=== PATIENT | male | born 1985 | race Caucasian/White ===

== ENCOUNTER 2019-10-11 13:30 | Emergency (ER) | payer SELFPAY ==
[2019-10-11 13:41] VITALS: BMI 54.7
--- NOTE | 2019-10-11 13:42 | XR_ITS ---
WS: [id number] XR chest 1V portable [id number] REASON FOR EXAM: CP FINDINGS: Cardiomegaly is noted. The lung canas are well aerated. No pneumothorax, pneumonia, pleural effusion, or pulmonary edema. The hilum and apices are normal. No osseous abnormalities. XR/XR chest 1V portable [id number] IMPRESSION: Cardiomegaly
[2019-10-11 13:55] VITALS: BP 187/56; PULSE 81; RESP 18; TEMP 36.9; O2SAT 93
[2019-10-11 13:57] LABS: Basophils # 0.1 10^3/uL (0.0-0.1); Basophils % 0.4 %; Eosinophils # 0.3 10^3/uL (0.0-0.8); Eosinophils % 2.4 %; Hematocrit 52.6 % (42.0-52.0); Hemoglobin 16.2 g/dL (11.7-16.6); Lymphocytes # 2.4 10^3/uL (0.8-4.8); Lymphocytes % 21.4 %; Mean Corpuscular HGB Conc 30.8 g/dL (30.0-36.0); Mean Corpuscular Hemoglobin 29.3 pg (28.0-34.0); Mean Corpuscular Volume 95.3 fL (80-94); Mean Platelet Volume 10.5 fL (7.4-10.4); Monocytes # 0.7 10^3/uL (0.2-0.9); Monocytes % 6.2 %; Neutrophils # 7.8 10^3/uL (1.8-7.7); Neutrophils % 69.1 %; Nucleated Red Blood Cells % 0 %; Platelet Count 309 10^3/cmm (130-400); Red Blood Count 5.52 10^6/uL (4.1-5.3); Red Cell Distribution Width 14.1 % (12.1-15.1); White Blood Count 11.3 10^3/uL (4.0-10.0)
[2019-10-11 14:10] LABS: INR 0.92 (0.8-1.2)
[2019-10-11] MEDS: ondansetron 2 mg/ML SDV 2 mL 4 MG IVP (14:10)
[2019-10-11] MEDS: sodium chloride 0.9% 1,000 ML 100 ML IV (14:10)
--- NOTE | 2019-10-11 14:10 | W.ED.CHESTPA ---
Documented by User: Sarai Mota 10/11/19 15:21 HPI - Chest Pain General: Chief Complaint: Chest Pain Stated Complaint: cp Time Seen by Provider: 10/11/19 13:39 History of Present Illness: HPI narrative: Mr. Conrad is a nice 33-year-old male who comes in complaining of left-sided chest pain. He describes it as sharp in nature and up and began while he was doing mild labor. It is gradually subsided on its own. He denies any diaphoresis, nausea vomiting, shortness of breath or any other related complaints. He states he had similar symptoms 4 months ago but never sought medical attention. He is unaware of anything that made his symptoms better or worse. He denies a history of cardiac problems. He otherwise has no complaints. Associated symptoms: Deny abdominal pain, diaphoresis, dyspnea, fever(s), nausea, palpitations, syncope or vomiting Review of Systems General: Reports: other (negative unless marked) Const: Denies: fever, chills, body aches, fatigue, malaise or diaphoresis Eyes: Denies: change in vision or blurry vision ENMT: Denies: throat pain, painful swallowing, hoarseness, ear pain, ear discharge, Change in hearing or nasal discharge Card: Reports: chest pain; Denies: palpitations, irregular heart rhythm, syncope, pre-syncope, shortness of breath on exertion or shortness of breath when lying down Resp: Denies: shortness of breath, productive cough, non-productive cough, wheezing, coughing up blood or chest congestion GI: Denies: abdominal pain, nausea, vomiting, vomiting blood, coffee grounds in vomit, diarrhea, constipation, cramping, blood in stool or black tarry stool : Denies: flank pain, difficulty urinating, painful urination, urinary frequency, urinary urgency, decreased urine ouput, urinary incontinence or blood in urine Musc: Denies: neck pain, back pain, extremity pain, extremity swelling, joint pain, joint swelling, joint warmth or joint stiffness Skin/Breast: Denies: rash, skin tenderness or yellow skin Neuro: Denies: headache, numbness in extremities, weakness in extremities, changes in sensation, lack of coordination, difficulty walking, dizziness, vertigo or confusion Endo: Denies: excessive thirst, tired all the time, cold intolerance, excessive sweating, flushing or hot flashes James/Lymph: Denies: easy bruising, easy bleeding, petechiae or enlarged lymph nodes All/Imm: Denies: hives, throat swelling, tongue swelling, facial swelling or acute wheezing PFSH ED PFSH: Medical History (Updated 10/11/19 @ 15:13 by Sarai Mota) No pertinent past medical history Surgical History (Updated 10/11/19 @ 14:11 by Sarai Mota) No history of previous surgery Family History (Updated 10/11/19 @ 14:12 by Sarai Mota) Other Diabetes Stroke Social History Smoking and tobacco status: current every day smoker Physical Exam Const: COMMON NORMALS: no apparent distress, oriented x3, no limitations, healthy appearing and well nourished EXAM LIMITATIONS: no altered mental status GENERAL APPEARANCE: cooperative, well kempt and well developed ORIENTATION/CONSCIOUSNESS: Yes awake HENMT: COMMON NORMALS: normocephalic, head/scalp atraumatic, hearing grossly normal bilaterally, external ears normal, EAC's normal, external nose normal and moist oral mucous membranes HEAD & SCALP: normal to inspection, normocephalic and atraumatic FACE & SINUS: normal facial exam and face symmetric NOSE: external nose normal and nares normal EXTERNAL EAR: Yes external ears normal EXTERNAL AUDITORY CANAL: EAC's normal MOUTH: oral and palatal mucosa normal and tongue normal Eye: COMMON NORMALS: PERRL, EOMs intact bilaterally, conjunctivae normal and no scleral icterus GENERAL EYE: normal appearance of both eyes and normal light reflex CONJUNCTIVA: Yes conjunctivae normal SCLERA: sclerae normal CORNEA: Yes corneas normal PUPIL: Yes PERRL DIRECT OPHTHALMOSCOPY: Yes normal light reflex Neck/C-Spine: COMMON NORMALS: full ROM, no lymphadenopathy, supple, no meningeal signs and no JVD GENERAL: Yes normal visual inspection and Yes trachea midline CERVICAL SPINE: Yes cervical ROM normal Chest: COMMONS NORMALS: inspection of chest normal and palpation of chest normal Resp: COMMON NORMALS: normal respiratory effort, no retractions, no use of accessory muscles and clear to auscultation bilaterally EFFORT & INSPECTION: Yes able to speak in complete sentences AUSCULTATION: clear to auscultation bilaterally Cardio: COMMON NORMALS: no JVD, regular rate, regular rhythm, S1 normal heart sound, S2 normal heart sound, no gallops, no clicks, no murmurs and no rub JUGULAR VENOUS DISTENTION: no JVD RATE: regular rate RHYTHM: regular rhythm HEART SOUNDS: S1 normal and S2 normal GI: COMMON NORMALS: soft to palpation, non-tender, no hepatosplenomegaly and no masses INSPECTION: Yes normal to inspection PALPATION: Yes soft and Yes no hepatosplenomegaly : COMMON NORMALS: Yes no CVA tenderness BLADDER/KIDNEY EXAM: Yes no CVA tenderness Back/Pelvis: COMMON NORMALS: no CVA tenderness, thoracic and lumbar spine normal to inspection, no thoracic nor lumbar tenderness and thoraco-lumbar ROM normal Extremity: COMMON NORMALS: normal to inspection, full ROM, normal capillary refill, no joint enlargement, no clubbing, cyanosis or edema and no calf tenderness Neuro: COMMON NORMALS: oriented x3, CN's II-XII intact bilaterally, moves all extremities, no focal motor deficits and no sensory deficits noted MENINGEAL SIGNS: Yes no meningeal signs Psych: COMMON NORMALS: mental status grossly normal, thought process normal, cooperative, affect normal, speech normal and activity/motor behavior normal APPEARANCE: Yes well kempt SPEECH: Yes normal speech THOUGHT PROCESS: normal thought process Skin: COMMON NORMALS: no rashes or lesions noted, skin turgor normal, no jaundice, no petechiae and no mottling GENERAL SKIN EXAM: no rashes or lesions noted and turgor normal Course Vital Signs: Vital signs: Vital Signs Temperature 98.5 F 10/11/19 13:55 Pulse Rate 87 10/11/19 17:49 Respiratory Rate 17 10/11/19 17:49 Blood Pressure 128/81 10/11/19 17:49 Pulse Oximetry 98 10/11/19 17:49 MDM - Chest Pain MDM Narrative: Medical decision making narrative: 1600 -patient's care will be turned over to Dr. Mejia. Patient has a heart score of 1. I believe he would be best suited to follow-up as an outpatient for an outpatient stress test but due to his concern we will go ahead and check another troponin. Currently he is still chest pain-free. Lab Data: Attestation: I reviewed the patient's lab results. Labs: Lab Results 10/11/19 10/11/19 10/11/19 Range/Units 13:50 13:50 13:50 WBC 11.3 H (4.0-10.0) 10^3/ uL RBC 5.52 H (4.1-5.3) 10^6/u L Hgb 16.2 (11.7-16.6) g/dL Hct 52.6 H (42.0-52.0) % MCV 95.3 H (80-94) fL MCH 29.3 (28.0-34.0) pg MCHC 30.8 (30.0-36.0) g/dL RDW 14.1 (12.1-15.1) % Plt Count 309 (130-400) 10^3/c mm MPV 10.5 H (7.4-10.4) fL Neut % (Auto) 69.1 % Lymph % (Auto) 21.4 % [place] % (Auto) 6.2 % Eos % (Auto) 2.4 % Baso % (Auto) 0.4 % Neut # (Auto) 7.8 H (1.8-7.7) 10^3/u L Lymph # (Auto) 2.4 (0.8-4.8) 10^3/u L [place] # (Auto) 0.7 (0.2-0.9) 10^3/u L Eos # (Auto) 0.3 (0.0-0.8) 10^3/u L Baso # (Auto) 0.1 (0.0-0.1) 10^3/u L Nucleated RBC % (a uto) 0 % Nucleated RBCs # 0.0 /100WBC PT 12.60 (10.5-13.3) SECO NDS INR 0.92 (0.8-1.2) D-Dimer 0.39 (0-0.59) ug/mIFE U Sodium 139 (136-145) mmol/L Potassium 3.9 (3.5-5.1) mmol/L Chloride 101 (98-107) mmol/L Carbon Dioxide 29 (22-29) mmol/L Anion Gap 12.9 (5-19) BUN 11 (6-20) mg/dL Creatinine 0.6 L (0.7-1.2) mg/dL GFR Calculation 154.2 H (90-130) mL/min Glucose 125 H (65-115) mg/dL Calculated Osmolal ity 286 (285-295) mOsm/k g Calcium 9.8 (8.5-10.5) mg/dL Magnesium 2.0 (1.7-2.3) mg/dL Total Bilirubin 0.2 (0.15-1.2) mg/dL AST 16 (0-40) U/L ALT 29 (0-41) U/L Alkaline Phosphata se 100 (40-130) IU/L Troponin T Baselin e (0-15) ng/mL Troponin T 120 Min [place] (0-15) ng/mL Delta Troponin T (0-10) ABS# Total Protein 7.7 (6.6-8.7) g/dL Albumin 4.0 (3.5-5.2) g/dL Globulin 3.7 (1.3-4.6) g/dL Lipase 24 (13-60) U/L Urine Color (Yellow) Urine Appearance (CLEAR) Urine pH (5-7) Ur Specific Gravit y (1.005-1.030) Urine Protein (Negative) Urine Glucose (UA) (Normal) Urine Ketones (Negative) Urine Blood (Negative) Urine Nitrate (Negative) Urine Bilirubin (NEGATIVE) Urine Urobilinogen (Negative) mg/dL Ur Leukocyte Marisabel ase (Negative) Urine RBC (0-2) /hpf Urine WBC (0-5) /hpf Ur Squamous Epith Cells (0-5) Urine Bacteria (NONE) Urine Mucus Urine Opiates Scre en (Negative) ng/mL Ur Barbiturates Sc reen (Negative) ng/mL Ur Phencyclidine S crn (Negative) ng/mL Ur Amphetamines Sc reen (Negative) ng/mL U Benzodiazepines Scrn (Negative) ng/mL Urine Cocaine Scre en (Negative) ng/mL U Marijuana (THC) Screen (Negative) ng/mL 10/11/19 10/11/19 10/11/19 Range/Units 13:50 15:38 16:01 WBC (4.0-10.0) 10^3/ uL RBC (4.1-5.3) 10^6/u L Hgb (11.7-16.6) g/dL Hct (42.0-52.0) % MCV (80-94) fL MCH (28.0-34.0) pg MCHC (30.0-36.0) g/dL RDW (12.1-15.1) % Plt Count (130-400) 10^3/c mm MPV (7.4-10.4) fL Neut % (Auto) % Lymph % (Auto) % [place] % (Auto) % Eos % (Auto) % Baso % (Auto) % Neut # (Auto) (1.8-7.7) 10^3/u L Lymph # (Auto) (0.8-4.8) 10^3/u L [place] # (Auto) (0.2-0.9) 10^3/u L Eos # (Auto) (0.0-0.8) 10^3/u L Baso # (Auto) (0.0-0.1) 10^3/u L Nucleated RBC % (a uto) % Nucleated RBCs # /100WBC PT (10.5-13.3) SECO NDS INR (0.8-1.2) D-Dimer (0-0.59) ug/mIFE U Sodium (136-145) mmol/L Potassium (3.5-5.1) mmol/L Chloride (98-107) mmol/L Carbon Dioxide (22-29) mmol/L Anion Gap (5-19) BUN (6-20) mg/dL Creatinine (0.7-1.2) mg/dL GFR Calculation (90-130) mL/min Glucose (65-115) mg/dL Calculated Osmolal ity (285-295) mOsm/k g Calcium (8.5-10.5) mg/dL Magnesium (1.7-2.3) mg/dL Total Bilirubin (0.15-1.2) mg/dL AST (0-40) U/L ALT (0-41) U/L Alkaline Phosphata se (40-130) IU/L Troponin T Baselin e 6 (0-15) ng/mL Troponin T 120 [address] [place] 6.48 (0-15) ng/mL Delta Troponin T 0.48 (0-10) ABS# Total Protein (6.6-8.7) g/dL Albumin (3.5-5.2) g/dL Globulin (1.3-4.6) g/dL Lipase (13-60) U/L Urine Color Yellow (Yellow) Urine Appearance Clear (CLEAR) Urine pH 7 (5-7) Ur Specific Gravit y 1.015 (1.005-1.030) Urine Protein 2+ H (Negative) Urine Glucose (UA) Norm (Normal) Urine Ketones Negative (Negative) Urine Blood 2+ H (Negative) Urine Nitrate Negative (Negative) Urine Bilirubin Neg (NEGATIVE) Urine Urobilinogen 1 H (Negative) mg/dL Ur Leukocyte Marisabel ase Negative (Negative) Urine RBC 15-25 H (0-2) /hpf Urine WBC 0-4 H (0-5) /hpf Ur Squamous Epith Cells Rare (0-5) Urine Bacteria Trace (NONE) Urine Mucus Trace Urine Opiates Scre en (Negative) ng/mL Ur Barbiturates Sc reen (Negative) ng/mL Ur Phencyclidine S crn (Negative) ng/mL Ur Amphetamines Sc reen (Negative) ng/mL U Benzodiazepines Scrn (Negative) ng/mL Urine Cocaine Scre en (Negative) ng/mL U Marijuana (THC) Screen (Negative) ng/mL 10/11/19 Range/Units 16:01 WBC (4.0-10.0) 10^3/ uL RBC (4.1-5.3) 10^6/u L Hgb (11.7-16.6) g/dL Hct (42.0-52.0) % MCV (80-94) fL MCH (28.0-34.0) pg MCHC (30.0-36.0) g/dL RDW (12.1-15.1) % Plt Count (130-400) 10^3/c mm MPV (7.4-10.4) fL Neut % (Auto) % Lymph % (Auto) % [place] % (Auto) % Eos % (Auto) % Baso % (Auto) % Neut # (Auto) (1.8-7.7) 10^3/u L Lymph # (Auto) (0.8-4.8) 10^3/u L [place] # (Auto) (0.2-0.9) 10^3/u L Eos # (Auto) (0.0-0.8) 10^3/u L Baso # (Auto) (0.0-0.1) 10^3/u L Nucleated RBC % (a uto) % Nucleated RBCs # /100WBC PT (10.5-13.3) SECO NDS INR (0.8-1.2) D-Dimer (0-0.59) ug/mIFE U Sodium (136-145) mmol/L Potassium (3.5-5.1) mmol/L Chloride (98-107) mmol/L Carbon Dioxide (22-29) mmol/L Anion Gap (5-19) BUN (6-20) mg/dL Creatinine (0.7-1.2) mg/dL GFR Calculation (90-130) mL/min Glucose (65-115) mg/dL Calculated Osmolal ity (285-295) mOsm/k g Calcium (8.5-10.5) mg/dL Magnesium (1.7-2.3) mg/dL Total Bilirubin (0.15-1.2) mg/dL AST (0-40) U/L ALT (0-41) U/L Alkaline Phosphata se (40-130) IU/L Troponin T Baselin e (0-15) ng/mL Troponin T 120 Min [place] (0-15) ng/mL Delta Troponin T (0-10) ABS# Total Protein (6.6-8.7) g/dL Albumin (3.5-5.2) g/dL Globulin (1.3-4.6) g/dL Lipase (13-60) U/L Urine Color (Yellow) Urine Appearance (CLEAR) Urine pH (5-7) Ur Specific Gravit y (1.005-1.030) Urine Protein (Negative) Urine Glucose (UA) (Normal) Urine Ketones (Negative) Urine Blood (Negative) Urine Nitrate (Negative) Urine Bilirubin (NEGATIVE) Urine Urobilinogen (Negative) mg/dL Ur Leukocyte Marisabel ase (Negative) Urine RBC (0-2) /hpf Urine WBC (0-5) /hpf Ur Squamous Epith Cells (0-5) Urine Bacteria (NONE) Urine Mucus Urine Opiates Scre en Negative (Negative) ng/mL Ur Barbiturates Sc reen Negative (Negative) ng/mL Ur Phencyclidine S crn Negative (Negative) ng/mL Ur Amphetamines Sc reen Negative (Negative) ng/mL U Benzodiazepines Scrn Negative (Negative) ng/mL Urine Cocaine Scre en Negative (Negative) ng/mL U Marijuana (THC) Screen Positive H (Negative) ng/mL Imaging Data^: CXR: Radiologist's impression: Cardiomegaly otherwise no acute cardiopulmonary findings. EKG Data^: EKG 1: Attestation: I personally reviewed and interpreted this EKG as follows: EKG interpretation date: 10/11/19 EKG interpretation time: 13:56 Interpretation: Normal sinus rhythm at 72 beats a minute, normal axis, nonspecific ST and T wave changes. EKG 2: Attestation: I personally reviewed and interpreted this EKG as follows: EKG interpretation date: 10/11/19 EKG interpretation time: 15:25 Interpretation: Normal sinus rhythm at 71 beats a minute, nonspecific ST and T wave changes. Discharge Plan Discharge Patient Disposition: Home, Self-Care Clinical Impression: Chest pain Qualifiers: Chest pain type: unspecified Qualified Code(s): R07.9 - Chest pain, unspecified Condition: Stable Prescriptions: New albuterol sulfate 90 mcg/actuation HFA aerosol inhaler 2 inh INHALATION Q6H PRN (Reason: shortness of breath or wheezing) Qty: 8 RF: 0 Medrol (Theron) 4 mg tablets,dose pack See Rx Instructions .ROUTE .COMPLEX Qty: 21 RF: 0 No Action Aleve 220 mg Tablet 220 mg PO BID PRN (Reason: Pain) RF: 0 Discharge Orders: Discharge Order (Routine); Ordered 10/11/19 Ordered By: García Mejia Discharge Diet: Low Salt and Low Cholesterol Discharge Activity: Increase activity as tolerated Patient Instructions: Chest Pain (ED) Activity Restrictions/Additional Instructions: Return for worsening chest pain despite treatment, worsening shortness of breath, cough with sputum production, fever, other concerning symptoms. An outpatient stress test has been ordered for you. You should get a call from the [facility] to set this up. If you do not hear from them by Saturday afternoon, call [phone] and ask for the ER [facility] [employer]. Stand Alone Forms: Work/School Release Discharge Date/Time: 10/11/19 17:52 Coding Level of Care Code ED Medical Affairs Specialist for Chg Fwd Exam Comprehensive Documented by User: García Mejia DO 10/12/19 02:30 HPI - Chest Pain General: Chief Complaint: Chest Pain Stated Complaint: cp Time Seen by Provider: 10/11/19 13:39 PFSH ED PFSH: Medical History (Updated 10/11/19 @ 15:13 by Sarai Mota) No pertinent past medical history Surgical History (Updated 10/11/19 @ 14:11 by Sarai Mota) No history of previous surgery Family History (Updated 10/11/19 @ 14:12 by Sarai Mota) Other Diabetes Stroke Social History Smoking and tobacco status: current every day smoker Course Vital Signs: Vital signs: Vital Signs Temperature 98.5 F 10/11/19 13:55 Pulse Rate 87 10/11/19 17:49 Respiratory Rate 17 10/11/19 17:49 Blood Pressure 128/81 10/11/19 17:49 Pulse Oximetry 98 10/11/19 17:49 MDM - Chest Pain MDM Narrative: Medical decision making narrative: 33-year-old morbidly obese male presenting with chest discomfort. He is EKG showed a sinus rhythm without acute ST elevation or significant depression. His d-dimer was negative. He experienced an episode of hypoxia while here, and so CTA was performed. There is no pneumonia, no pulmonary embolism. There is some mosaicism in the lung tissue, which could be due to small airways disease. We will send him home with prescription for inhaler and a small taper of steroid. I think an outpatient stress test is a great idea. Lab Data: Labs: Lab Results 10/11/19 10/11/19 10/11/19 Range/Units 13:50 13:50 13:50 WBC 11.3 H (4.0-10.0) 10^3/ uL RBC 5.52 H (4.1-5.3) 10^6/u L Hgb 16.2 (11.7-16.6) g/dL Hct 52.6 H (42.0-52.0) % MCV 95.3 H (80-94) fL MCH 29.3 (28.0-34.0) pg MCHC 30.8 (30.0-36.0) g/dL RDW 14.1 (12.1-15.1) % Plt Count 309 (130-400) 10^3/c mm MPV 10.5 H (7.4-10.4) fL Neut % (Auto) 69.1 % Lymph % (Auto) 21.4 % [place] % (Auto) 6.2 % Eos % (Auto) 2.4 % Baso % (Auto) 0.4 % Neut # (Auto) 7.8 H (1.8-7.7) 10^3/u L Lymph # (Auto) 2.4 (0.8-4.8) 10^3/u L [place] # (Auto) 0.7 (0.2-0.9) 10^3/u L Eos # (Auto) 0.3 (0.0-0.8) 10^3/u L Baso # (Auto) 0.1 (0.0-0.1) 10^3/u L Nucleated RBC % (a uto) 0 % Nucleated RBCs # 0.0 /100WBC PT 12.60 (10.5-13.3) SECO NDS INR 0.92 (0.8-1.2) D-Dimer 0.39 (0-0.59) ug/mIFE U Sodium 139 (136-145) mmol/L Potassium 3.9 (3.5-5.1) mmol/L Chloride 101 (98-107) mmol/L Carbon Dioxide 29 (22-29) mmol/L Anion Gap 12.9 (5-19) BUN 11 (6-20) mg/dL Creatinine 0.6 L (0.7-1.2) mg/dL GFR Calculation 154.2 H (90-130) mL/min Glucose 125 H (65-115) mg/dL Calculated Osmolal ity 286 (285-295) mOsm/k g Calcium 9.8 (8.5-10.5) mg/dL Magnesium 2.0 (1.7-2.3) mg/dL Total Bilirubin 0.2 (0.15-1.2) mg/dL AST 16 (0-40) U/L ALT 29 (0-41) U/L Alkaline Phosphata se 100 (40-130) IU/L Troponin T Baselin e (0-15) ng/mL Troponin T 120 Min [place] (0-15) ng/mL Delta Troponin T (0-10) ABS# Total Protein 7.7 (6.6-8.7) g/dL Albumin 4.0 (3.5-5.2) g/dL Globulin 3.7 (1.3-4.6) g/dL Lipase 24 (13-60) U/L Urine Color (Yellow) Urine Appearance (CLEAR) Urine pH (5-7) Ur Specific Gravit y (1.005-1.030) Urine Protein (Negative) Urine Glucose (UA) (Normal) Urine Ketones (Negative) Urine Blood (Negative) Urine Nitrate (Negative) Urine Bilirubin (NEGATIVE) Urine Urobilinogen (Negative) mg/dL Ur Leukocyte Marisabel ase (Negative) Urine RBC (0-2) /hpf Urine WBC (0-5) /hpf Ur Squamous Epith Cells (0-5) Urine Bacteria (NONE) Urine Mucus Urine Opiates Scre en (Negative) ng/mL Ur Barbiturates Sc reen (Negative) ng/mL Ur Phencyclidine S crn (Negative) ng/mL Ur Amphetamines Sc reen (Negative) ng/mL U Benzodiazepines Scrn (Negative) ng/mL Urine Cocaine Scre en (Negative) ng/mL U Marijuana (THC) Screen (Negative) ng/mL 10/11/19 10/11/19 10/11/19 Range/Units 13:50 15:38 16:01 WBC (4.0-10.0) 10^3/ uL RBC (4.1-5.3) 10^6/u L Hgb (11.7-16.6) g/dL Hct (42.0-52.0) % MCV (80-94) fL MCH (28.0-34.0) pg MCHC (30.0-36.0) g/dL RDW (12.1-15.1) % Plt Count (130-400) 10^3/c mm MPV (7.4-10.4) fL Neut % (Auto) % Lymph % (Auto) % [place] % (Auto) % Eos % (Auto) % Baso % (Auto) % Neut # (Auto) (1.8-7.7) 10^3/u L Lymph # (Auto) (0.8-4.8) 10^3/u L [place] # (Auto) (0.2-0.9) 10^3/u L Eos # (Auto) (0.0-0.8) 10^3/u L Baso # (Auto) (0.0-0.1) 10^3/u L Nucleated RBC % (a uto) % Nucleated RBCs # /100WBC PT (10.5-13.3) SECO NDS INR (0.8-1.2) D-Dimer (0-0.59) ug/mIFE U Sodium (136-145) mmol/L Potassium (3.5-5.1) mmol/L Chloride (98-107) mmol/L Carbon Dioxide (22-29) mmol/L Anion Gap (5-19) BUN (6-20) mg/dL Creatinine (0.7-1.2) mg/dL GFR Calculation (90-130) mL/min Glucose (65-115) mg/dL Calculated Osmolal ity (285-295) mOsm/k g Calcium (8.5-10.5) mg/dL Magnesium (1.7-2.3) mg/dL Total Bilirubin (0.15-1.2) mg/dL AST (0-40) U/L ALT (0-41) U/L Alkaline Phosphata se (40-130) IU/L Troponin T Baselin e 6 (0-15) ng/mL Troponin T 120 Min [place] 6.48 (0-15) ng/mL Delta Troponin T 0.48 (0-10) ABS# Total Protein (6.6-8.7) g/dL Albumin (3.5-5.2) g/dL Globulin (1.3-4.6) g/dL Lipase (13-60) U/L Urine Color Yellow (Yellow) Urine Appearance Clear (CLEAR) Urine pH 7 (5-7) Ur Specific Gravit y 1.015 (1.005-1.030) Urine Protein 2+ H (Negative) Urine Glucose (UA) Norm (Normal) Urine Ketones Negative (Negative) Urine Blood 2+ H (Negative) Urine Nitrate Negative (Negative) Urine Bilirubin Neg (NEGATIVE) Urine Urobilinogen 1 H (Negative) mg/dL Ur Leukocyte Marisabel ase Negative (Negative) Urine RBC 15-25 H (0-2) /hpf Urine WBC 0-4 H (0-5) /hpf Ur Squamous Epith Cells Rare (0-5) Urine Bacteria Trace (NONE) Urine Mucus Trace Urine Opiates Scre en (Negative) ng/mL Ur Barbiturates Sc reen (Negative) ng/mL Ur Phencyclidine S crn (Negative) ng/mL Ur Amphetamines Sc reen (Negative) ng/mL U Benzodiazepines Scrn (Negative) ng/mL Urine Cocaine Scre en (Negative) ng/mL U Marijuana (THC) Screen (Negative) ng/mL 10/11/19 Range/Units 16:01 WBC (4.0-10.0) 10^3/ uL RBC (4.1-5.3) 10^6/u L Hgb (11.7-16.6) g/dL Hct (42.0-52.0) % MCV (80-94) fL MCH (28.0-34.0) pg MCHC (30.0-36.0) g/dL RDW (12.1-15.1) % Plt Count (130-400) 10^3/c mm MPV (7.4-10.4) fL Neut % (Auto) % Lymph % (Auto) % [place] % (Auto) % Eos % (Auto) % Baso % (Auto) % Neut # (Auto) (1.8-7.7) 10^3/u L Lymph # (Auto) (0.8-4.8) 10^3/u L [place] # (Auto) (0.2-0.9) 10^3/u L Eos # (Auto) (0.0-0.8) 10^3/u L Baso # (Auto) (0.0-0.1) 10^3/u L Nucleated RBC % (a uto) % Nucleated RBCs # /100WBC PT (10.5-13.3) SECO NDS INR (0.8-1.2) D-Dimer (0-0.59) ug/mIFE U Sodium (136-145) mmol/L Potassium (3.5-5.1) mmol/L Chloride (98-107) mmol/L Carbon Dioxide (22-29) mmol/L Anion Gap (5-19) BUN (6-20) mg/dL Creatinine (0.7-1.2) mg/dL GFR Calculation (90-130) mL/min Glucose (65-115) mg/dL Calculated Osmolal ity (285-295) mOsm/k g Calcium (8.5-10.5) mg/dL Magnesium (1.7-2.3) mg/dL Total Bilirubin (0.15-1.2) mg/dL AST (0-40) U/L ALT (0-41) U/L Alkaline Phosphata se (40-130) IU/L Troponin T Baselin e (0-15) ng/mL Troponin T 120 Min [place] (0-15) ng/mL Delta Troponin T (0-10) ABS# Total Protein (6.6-8.7) g/dL Albumin (3.5-5.2) g/dL Globulin (1.3-4.6) g/dL Lipase (13-60) U/L Urine Color (Yellow) Urine Appearance (CLEAR) Urine pH (5-7) Ur Specific Gravit y (1.005-1.030) Urine Protein (Negative) Urine Glucose (UA) (Normal) Urine Ketones (Negative) Urine Blood (Negative) Urine Nitrate (Negative) Urine Bilirubin (NEGATIVE) Urine Urobilinogen (Negative) mg/dL Ur Leukocyte Marisabel ase (Negative) Urine RBC (0-2) /hpf Urine WBC (0-5) /hpf Ur Squamous Epith Cells (0-5) Urine Bacteria (NONE) Urine Mucus Urine Opiates Scre en Negative (Negative) ng/mL Ur Barbiturates Sc reen Negative (Negative) ng/mL Ur Phencyclidine S crn Negative (Negative) ng/mL Ur Amphetamines Sc reen Negative (Negative) ng/mL U Benzodiazepines Scrn Negative (Negative) ng/mL Urine Cocaine Scre en Negative (Negative) ng/mL U Marijuana (THC) Screen Positive H (Negative) ng/mL Discharge Plan Discharge Patient Disposition: Home, Self-Care Clinical Impression: Chest pain Qualifiers: Chest pain type: unspecified Qualified Code(s): R07.9 - Chest pain, unspecified Condition: Stable Prescriptions: New albuterol sulfate 90 mcg/actuation HFA aerosol inhaler 2 inh INHALATION Q6H PRN (Reason: shortness of breath or wheezing) Qty: 8 RF: 0 Medrol (Theron) 4 mg tablets,dose pack See Rx Instructions .ROUTE .COMPLEX Qty: 21 RF: 0 No Action Aleve 220 mg Tablet 220 mg PO BID PRN (Reason: Pain) RF: 0 Discharge Orders: Discharge Order (Routine); Ordered 10/11/19 Ordered By: García Mejia Discharge Diet: Low Salt and Low Cholesterol Discharge Activity: Increase activity as tolerated Patient Instructions: Chest Pain (ED) Activity Restrictions/Additional Instructions: Return for worsening chest pain despite treatment, worsening shortness of breath, cough with sputum production, fever, other concerning symptoms. An outpatient stress test has been ordered for you. You should get a call from the ER [facility] to set this up. If you do not hear from them by Saturday afternoon, call [phone] and ask for the ER [facility] [employer]. Stand Alone Forms: Work/School Release Discharge Date/Time: 10/11/19 17:52 Coding Level of Care Code ED Medical Affairs Specialist for [place] Fwd Exam Comprehensive
[2019-10-11 14:13] LABS: D Dimer 0.39 ug/mIFEU (0-0.59)
[2019-10-11 14:15] LABS: Alanine Aminotransferase 29 U/L (0-41); Alkaline Phosphatase 100 IU/L (40-130); Anion Gap 12.9 (5-19); Aspartate Amino Transferase 16 U/L (0-40); Blood Urea Nitrogen 11 mg/dL (6-20); Calcium 9.8 mg/dL (8.5-10.5); Carbon Dioxide 29 mmol/L (22-29); Chloride 101 mmol/L (98-107); Globulin 3.7 g/dL (1.3-4.6); Glomerular Filtration Rate 154.2 mL/min (90-130); Glucose 125 mg/dL (65-115); Lipase 24 U/L (13-60); Osmolality Calculated 286 mOsm/kg (285-295); Potassium 3.9 mmol/L (3.5-5.1); Sodium 139 mmol/L (136-145); Total Bilirubin 0.2 mg/dL (0.15-1.2); Total Protein 7.7 g/dL (6.6-8.7)
[2019-10-11 14:17] LABS: Troponin(5th) Baseline 6 ng/mL (0-15)
--- NOTE | 2019-10-11 15:43 | ECG_ITS ---
Measurements Intervals [place] Rate: 71 P: 75 CT: 162 QRS: 57 QRSD: 98 T: 30 QT: 386 QTc: 422 SINUS RHYTHM No previous ECG available for comparison Electronically Signed On 10-11-2019 20:16:49 CDT by Tip Jose M.D. [id number]
--- NOTE | 2019-10-11 15:56 | CTR_ITS ---
PROCEDURE INFORMATION: Exam: CT Angiography Chest With Contrast Exam date and time: 10/11/2019 4:25 PM Age: 33 years old Clinical indication: Left-sided chest pain; Additional info: Cp/hypoxia TECHNIQUE: Imaging protocol: Computed tomographic angiography of the chest with intravenous contrast. 3D rendering: MIP and/or 3D reconstructed images were created by the technologist. Radiation optimization: All CT scans at this facility use at least one of these dose optimization techniques: automated exposure control; mA and/or kV adjustment per patient size (includes targeted exams where dose is matched to clinical indication); or iterative reconstruction. Contrast material: OMNI 350; Contrast volume: 95 ml; Contrast route: LT AC; COMPARISON: CR XR chest 1V portable [id number] 10/11/2019 2:04 PM RADIATION DOSE METRICS: Total DLP: 552.92 mGy-cm FINDINGS: Pulmonary arteries: Normal. No pulmonary emboli. Aorta: Unremarkable. No aortic aneurysm. No aortic dissection. Lungs: Mild mosaic attenuation throughout both lungs. Shallow inspiration with crowding. Pleural space: Unremarkable. No pneumothorax. No pleural effusion. Heart: Unremarkable. No cardiomegaly. No pericardial effusion. Lymph nodes: Unremarkable. No enlarged lymph nodes. Bones/joints: Unremarkable. No acute fracture. Soft tissues: Unremarkable. CT/CT angio chest PE protcl [id number] IMPRESSION: 1. Mild mosaic attenuation throughout both lungs most likely relates to areas of air trapping due to small airways disease. 2. No evidence for active pneumonia. Radiation Dose CTDIVOL = (mGy): DLP = 552.92 (mGy-cm)
[2019-10-11 16:03] LABS: Troponin 5 2HR 6.48 ng/mL (0-15); Troponin 5 2HR Delta 0.48 ABS# (0-10)
[2019-10-11 16:12] VITALS: BP 166/110; PULSE 73; RESP 16
[2019-10-11 16:34] LABS: Blood Urine 2+ (Negative); Glucose Urine UA Norm (Normal); Ketones Urine Negative (Negative); Protein Urine 2+ (Negative); Specific Gravity, Urine 1.015 (1.005-1.030); Urine Appearance Clear (CLEAR); Urine Color Yellow (Yellow); pH Urine 7 (5-7)
[2019-10-11 16:35] LABS: Bilirubin Urine Neg (NEGATIVE); Leukocyte Esterase Urine Negative (Negative); Nitrate Urine Negative (Negative); Urobilinogen Urine 1 mg/dL (Negative)
[2019-10-11 16:43] LABS: Amphetamines Screen Urine Negative (Negative); Barbiturates Screen Urine Negative (Negative); Benzodiazepines Screen Urine Negative (Negative); Cocaine Screen Urine Negative (Negative); Opiate Screen Urine Negative (Negative); PCP Screen Urine Negative (Negative); THC Screen Urine Positive (Negative)
[2019-10-11] MEDS: iohexol 350 mg/mL 100 mL Btl IV (16:44)
[2019-10-11 16:48] LABS: RBC Urine 15-25 /hpf (0-2); WBC Urine 0-4 /hpf (0-5)
[2019-10-11 16:49] LABS: Add Urine Culture? Yes; Bacteria Urine TRACE; Mucus Urine TRACE; Squamous Epithelial Cell Urine RARE (0-5)
--- NOTE | 2019-10-11 16:58 | PC.NURSE ---
patient returned from ct, tolerated well
[2019-10-11 17:49] VITALS: BP 128/81; PULSE 87; RESP 17; O2SAT 98
--- NOTE | 2019-10-11 19:43 | ECG_ITS ---
Measurements Intervals [place] Rate: 72 P: 72 GA: 163 QRS: 61 QRSD: 89 T: 39 QT: 371 QTc: 406 SINUS RHYTHM POSSIBLE RIGHT VENTRICULAR CONDUCTION DELAY [RSR (QR) IN V1/V2] No previous ECG available for comparison Electronically Signed On 10-11-2019 20:16:21 CDT by Tip Jose M.D. [id number]
--- NOTE | 2019-10-13 10:25 | DCPLANNER ---
manager environmental affairs had message to schedule an outpatient stress test for patient. manager environmental affairs called patient to confirm that patient did want to have test ordered, and to confirm who patient sees for primary care. Patient stated that he does not have insurance at this time, that he does not want to have the stress test ordered. manager environmental affairs offered to mail patient both of the senior financial accountant applications to the patient to fill out and turn back in. Patient stated that he wanted to wait to hear back to see where he is at with the senior financial accountant before scheduling any type of appointment.
== END 2019-10-11 17:52 | disposition home or self-care (01) ==
PROVIDERS: Emergency Medicine; Emergency Provider Emergency Medicine
DX: R07.9 Chest pain, unspecified (principal); F17.210 Nicotine dependence, cigarettes, uncomplicated
CPT/HCPCS: 12345; 36415; 71045; 71275; 80053; 80306; 81001; 83690; 83735; 84484; 85025; 85378; 85610; 87086; 93005; 96361; 96374; 96375; 99284; J2405; J7030; Q9967

== ENCOUNTER 2021-01-05 12:52 | Inpatient (IN) | payer MEDICAID, SELFPAY ==
[2021-01-05] VITALS (10 sets, daily range): BP systolic 153–190; BP diastolic 80–108; PULSE 78–98; RESP 18–22; TEMP 36.6–37.1; O2SAT 88–96; BMI 60.8
[2021-01-05 14:58] LABS: Basophils # 0.1 10^3/uL (0.0-0.1); Basophils % 0.7 %; Eosinophils # 0.6 10^3/uL (0.0-0.8); Eosinophils % 3.8 %; Hematocrit 53.6 % (42.0-52.0); Hemoglobin 16.1 g/dL (11.7-16.6); Lymphocytes # 2.1 10^3/uL (0.8-4.8); Lymphocytes % 13.4 %; Mean Corpuscular Hemoglobin 28.5 pg (28.0-34.0); Mean Corpuscular Volume 94.9 fL (80-94); Mean Platelet Volume 10.7 fL (7.4-10.4); Monocytes % 6.6 %; Neutrophils % 74.5 %; Nucleated Red Blood Cells % 0 %; Platelet Count 337 10^3/cmm (130-400); Red Blood Count 5.65 10^6/uL (4.1-5.3); Red Cell Distribution Width 15.5 % (12.1-15.1); White Blood Count 15.7 10^3/uL (4.0-10.0)
--- NOTE | 2021-01-05 15:13 | XRR_ITS ---
PROCEDURE INFORMATION: Exam: XR Chest Exam date and time: 01/05/2021 3:13 PM Age: 35 years old Clinical indication: Other: Swelling; Additional info: Rule out pathologies TECHNIQUE: Imaging protocol: XR of the chest. Views: 1 view. COMPARISON: CR XR chest 1V portable [id number] 10/11/2019 2:04 PM FINDINGS: Lungs: Unremarkable. No consolidation. Pleural spaces: Unremarkable. No pleural effusion. No pneumothorax. Heart/Mediastinum: Unremarkable. No cardiomegaly. Bones/joints: Unremarkable. XR/XR chest 1V portable [id number] IMPRESSION: No acute findings.
--- NOTE | 2021-01-05 15:13 | ECG_ITS ---
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 Measurements Intervals [place] Rate: 84 P: 65 AR: 168 QRS: 86 QRSD: 88 T: 33 QT: 385 QTc: 455 Interpretive Statements SINUS RHYTHM POSSIBLE RIGHT VENTRICULAR CONDUCTION DELAY [RSR (QR) IN V1/V2] Compared to ECG 10/11/2019 15:25:08 No significant changes Electronically Signed On 01-05-2021 23:02:38 CDT by Elie Horn M.D. [id number]
--- NOTE | 2021-01-05 15:22 | PC.NURSE ---
Patient to room 10 at 1435, assumed care at this time.
[2021-01-05 15:29] LABS: Alanine Aminotransferase 23 U/L (0-41); Albumin Level 3.5 g/dL (3.5-5.2); Alkaline Phosphatase 89 IU/L (40-130); Anion Gap 13.3 (5-19); Aspartate Amino Transferase 18 U/L (0-40); Blood Urea Nitrogen 10 mg/dL (6-20); Calcium 8.4 mg/dL (8.5-10.5); Carbon Dioxide 31 mmol/L (22-29); Chloride 99 mmol/L (98-107); Globulin 3.4 g/dL (1.3-4.6); Glomerular Filtration Rate 127.6 mL/min (90-130); Glucose 85 mg/dL (65-115); Lipase 24 U/L (13-60); Osmolality Calculated 286 mOsm/kg (285-295); Potassium 4.3 mmol/L (3.5-5.1); Sodium 139 mmol/L (136-145); Total Bilirubin 0.3 mg/dL (0.15-1.2); Total Protein 6.9 g/dL (6.6-8.7)
[2021-01-05 15:57] LABS: NT Pro B Type Natriuretic Pept 588 pg/mL (0-125)
--- NOTE | 2021-01-05 15:59 | ED_ITS ---
HPI - General Adult General: Chief complaint: General Medical Stated complaint: SENT BY PCP/BODY SWELLING, ABD LABS (HAS COPIES) Time Seen by Provider: 01/05/21 14:42 History of Present Illness: HPI narrative: Patient is a 35-year-old male with history of morbid obesity who presents emergency room for concerns of worsening lower extremity swelling, shortness of breath, abdominal distention over the last 2-month. Patient was seen and evaluated by his primary care provider recently and has noted to have increased weight gain of over 40 pounds. Patient currently weighs 460 pounds. He requires home oxygen. Patient says that he normally uses 6 L of home oxygen at home. Denies any chest pain, nausea/vomiting, abdominal complaints loss of taste, cough runny nose sore throat, diarrhea, or blood in the stool. Onset: chronic Duration: ongoing Intensity: moderate Associated symptoms: SOB, abdominal distension, and leg swelling Review of Systems Narrative: Constitutional: no subjective fever, no generalized weakness HEENT: No vision changes CV: No chest pain, no palpitations PULM: no cough, no dyspnea. GI: No abdominal pain, no N/V/D. +abdominal distension : No dysuria MSKEL: No muscle pain SKIN: +leg swelling, +redness over the legs and abdomen NEURO: No headache, no focal weakness. HEME: No visible bruises PSYCH: Normal mood [facility] PFSH: Medical History (Updated 01/05/21 @ 20:18 by Brett Capone MD) No pertinent past medical history Surgical History (Updated 10/11/19 @ 14:11 by Sarai Mota) No history of previous surgery Family History (Updated 10/11/19 @ 14:12 by Sarai Mota) Other Diabetes Stroke Social History (Updated 01/05/21 @ 20:14 by Brett Capone MD) Smoking and tobacco status: current every day smoker cigarettes Packs smoked per day: 1 Years cigarettes smoked: 12 [ Other cigarette details: 12 pack smoking history ] Alcohol intake: never Substance/Drug Use: never Housing: House Physical Exam Narrative: EXAM NARRATIVE: Head: Atraumatic Eyes: PERRL, conjunctiva without injection ENT: Mucous membrane moist NECK: Supple without lymphadenopathy LUNGS: LCAB, no crackles/rhonchi or rales CV: RRR ABDOMEN: Soft, +abdominal distension nontender in all quadrants, no guarding or rebound tenderness EXTREMITY: 3+ LE swelling, no michael sign or asymmetric swelling SKIN: No rash or erythema NEURO: Awake and alert. No focal motor deficits. PSYCH: Normal mood and affect. Course Vital Signs: Vital signs: Vital Signs Temperature 98.5 F 01/05/21 17:18 Pulse Rate 87 01/05/21 22:00 Respiratory Rate 18 01/05/21 22:00 Blood Pressure 162/84 01/05/21 22:00 Pulse Oximetry 94 01/05/21 22:00 MDM - General Adult MDM Narrative: Medical decision making narrative: Patient is a 35-year-old male with history of morbid obesity presenting to emergency room with concerns of increased weight gain, [place] distention and progressive worsening O2 requirement. In triage, patient was satting 85% on room air. Patient is placed on 3 L nasal cannula and improve to 95% on pulse ox. Findings most consistent with volume overload leading to dyspnea. Patient received 40mg of IV lasix. Unclear source of leukocytosis given clear XR chest. 3+ protein is noted in the urine concerning for possible protein wasting. Patient will be admitted for volume adjustment, failure of outpatient treatment, increased oxygen requirement. Disposition: Admission Lab Data: Labs: Lab Results 01/05/21 01/05/21 01/05/21 Range/Units 14:51 14:51 14:51 WBC 15.7 H (4.0-10.0) 10^3/ uL RBC 5.65 H (4.1-5.3) 10^6/u L Hgb 16.1 (11.7-16.6) g/dL Hct 53.6 H (42.0-52.0) % MCV 94.9 H (80-94) fL MCH 28.5 (28.0-34.0) pg MCHC 30.0 (30.0-36.0) g/dL RDW 15.5 H (12.1-15.1) % Plt Count 337 (130-400) 10^3/c mm MPV 10.7 H (7.4-10.4) fL Neut % (Auto) 74.5 % Lymph % (Auto) 13.4 % [place] % (Auto) 6.6 % Eos % (Auto) 3.8 % Baso % (Auto) 0.7 % Neut # (Auto) 11.70 H (1.8-7.7) 10^3/u L Lymph # (Auto) 2.1 (0.8-4.8) 10^3/u L [place] # (Auto) 1.0 H (0.2-0.9) 10^3/u L Eos # (Auto) 0.6 (0.0-0.8) 10^3/u L Baso # (Auto) 0.1 (0.0-0.1) 10^3/u L Nucleated RBC % (a uto) 0 % Nucleated RBCs # 0.0 /100WBC D-Dimer (0-0.59) ug/mIFE U Sodium 139 (136-145) mmol/L Potassium 4.3 (3.5-5.1) mmol/L Chloride 99 (98-107) mmol/L Carbon Dioxide 31 H (22-29) mmol/L Anion Gap 13.3 (5-19) BUN 10 (6-20) mg/dL Creatinine 0.7 (0.7-1.2) mg/dL GFR Calculation 127.6 (90-130) mL/min Glucose 85 (65-115) mg/dL Estimat Average Gl ucose Hemoglobin A1c (4.0-6.0) % Calculated Osmolal ity 286 (285-295) mOsm/k g Calcium 8.4 L (8.5-10.5) mg/dL Total Bilirubin 0.3 (0.15-1.2) mg/dL AST 18 (0-40) U/L ALT 23 (0-41) U/L Alkaline Phosphata se 89 (40-130) IU/L NT-Pro-B Natriuret Pep 588 H (0-125) pg/mL Total Protein 6.9 (6.6-8.7) g/dL Albumin 3.5 (3.5-5.2) g/dL Globulin 3.4 (1.3-4.6) g/dL Triglycerides (0-150) mg/dL Cholesterol (0-200) mg/dL LDL Cholesterol, C alc (50-129) mg/dL HDL Cholesterol (60-100) mg/dL LDL/HDL Ratio (0.00-3.22) RATI O Cholesterol/HDL Ra farshad (1.0-5.00) mg/dL Lipase 24 (13-60) U/L TSH Urine Color (Yellow) Urine Appearance (CLEAR) Urine pH (5-7) Ur Specific Gravit y (1.005-1.030) Urine Protein (Negative) Urine Glucose (UA) (Normal) Urine Ketones (Negative) Urine Blood (Negative) Urine Nitrate (Negative) Urine Bilirubin (Negative) Urine Urobilinogen (Negative) mg/dL Ur Leukocyte Marisabel ase (Negative) Urine RBC (0-2) /hpf Urine WBC (0-5) /hpf Ur Squamous Epith Cells (0-5) /hpf Amorphous Sediment Urine Bacteria (NONE) /hpf Ur Random Microalb umin (0-20) ug/dL Urine Creatinine Microalb/Creat Rat io (0-20) mg/dL Urine Total Protei n (0.0-20.0) mg/dL SARS-CoV-2 Ag (Rap id) (Negative) 01/05/21 01/05/21 01/05/21 Range/Units 14:51 14:51 14:51 WBC (4.0-10.0) 10^3/ uL RBC (4.1-5.3) 10^6/u L Hgb (11.7-16.6) g/dL Hct (42.0-52.0) % MCV (80-94) fL MCH (28.0-34.0) pg MCHC (30.0-36.0) g/dL RDW (12.1-15.1) % Plt Count (130-400) 10^3/c mm MPV (7.4-10.4) fL Neut % (Auto) % Lymph % (Auto) % [place] % (Auto) % Eos % (Auto) % Baso % (Auto) % Neut # (Auto) (1.8-7.7) 10^3/u L Lymph # (Auto) (0.8-4.8) 10^3/u L [place] # (Auto) (0.2-0.9) 10^3/u L Eos # (Auto) (0.0-0.8) 10^3/u L Baso # (Auto) (0.0-0.1) 10^3/u L Nucleated RBC % (a uto) % Nucleated RBCs # /100WBC D-Dimer 1.28 H (0-0.59) ug/mIFE U Sodium (136-145) mmol/L Potassium (3.5-5.1) mmol/L Chloride (98-107) mmol/L Carbon Dioxide (22-29) mmol/L Anion Gap (5-19) BUN (6-20) mg/dL Creatinine (0.7-1.2) mg/dL GFR Calculation (90-130) mL/min Glucose (65-115) mg/dL Estimat Average Gl ucose 137 Hemoglobin A1c 6.4 H (4.0-6.0) % Calculated Osmolal ity (285-295) mOsm/k g Calcium (8.5-10.5) mg/dL Total Bilirubin (0.15-1.2) mg/dL AST (0-40) U/L ALT (0-41) U/L Alkaline Phosphata se (40-130) IU/L NT-Pro-B Natriuret Pep (0-125) pg/mL Total Protein (6.6-8.7) g/dL Albumin (3.5-5.2) g/dL Globulin (1.3-4.6) g/dL Triglycerides (0-150) mg/dL Cholesterol (0-200) mg/dL LDL Cholesterol, C alc (50-129) mg/dL HDL Cholesterol (60-100) mg/dL LDL/HDL Ratio (0.00-3.22) RATI O Cholesterol/HDL Ra farshad (1.0-5.00) mg/dL Lipase (13-60) U/L TSH Cancelled Urine Color (Yellow) Urine Appearance (CLEAR) Urine pH (5-7) Ur Specific Gravit y (1.005-1.030) Urine Protein (Negative) Urine Glucose (UA) (Normal) Urine Ketones (Negative) Urine Blood (Negative) Urine Nitrate (Negative) Urine Bilirubin (Negative) Urine Urobilinogen (Negative) mg/dL Ur Leukocyte Marisabel ase (Negative) Urine RBC (0-2) /hpf Urine WBC (0-5) /hpf Ur Squamous Epith Cells (0-5) /hpf Amorphous Sediment Urine Bacteria (NONE) /hpf Ur Random Microalb umin (0-20) ug/dL Urine Creatinine Microalb/Creat Rat io (0-20) mg/dL Urine Total Protei n (0.0-20.0) mg/dL SARS-CoV-2 Ag (Rap id) (Negative) 01/05/21 01/05/21 01/05/21 Range/Units 14:51 15:16 15:50 WBC (4.0-10.0) 10^3/ uL RBC (4.1-5.3) 10^6/u L Hgb (11.7-16.6) g/dL Hct (42.0-52.0) % MCV (80-94) fL MCH (28.0-34.0) pg MCHC (30.0-36.0) g/dL RDW (12.1-15.1) % Plt Count (130-400) 10^3/c mm MPV (7.4-10.4) fL Neut % (Auto) % Lymph % (Auto) % [place] % (Auto) % Eos % (Auto) % Baso % (Auto) % Neut # (Auto) (1.8-7.7) 10^3/u L Lymph # (Auto) (0.8-4.8) 10^3/u L [place] # (Auto) (0.2-0.9) 10^3/u L Eos # (Auto) (0.0-0.8) 10^3/u L Baso # (Auto) (0.0-0.1) 10^3/u L Nucleated RBC % (a uto) % Nucleated RBCs # /100WBC D-Dimer (0-0.59) ug/mIFE U Sodium (136-145) mmol/L Potassium (3.5-5.1) mmol/L Chloride (98-107) mmol/L Carbon Dioxide (22-29) mmol/L Anion Gap (5-19) BUN (6-20) mg/dL Creatinine (0.7-1.2) mg/dL GFR Calculation (90-130) mL/min Glucose (65-115) mg/dL Estimat Average Gl ucose Hemoglobin A1c (4.0-6.0) % Calculated Osmolal ity (285-295) mOsm/k g Calcium (8.5-10.5) mg/dL Total Bilirubin (0.15-1.2) mg/dL AST (0-40) U/L ALT (0-41) U/L Alkaline Phosphata se (40-130) IU/L NT-Pro-B Natriuret Pep (0-125) pg/mL Total Protein (6.6-8.7) g/dL Albumin (3.5-5.2) g/dL Globulin (1.3-4.6) g/dL Triglycerides 110 (0-150) mg/dL Cholesterol 168 (0-200) mg/dL LDL Cholesterol, C alc 107 (50-129) mg/dL HDL Cholesterol 39 L (60-100) mg/dL LDL/HDL Ratio 2.74 (0.00-3.22) RATI O Cholesterol/HDL Ra farshad 4.31 (1.0-5.00) mg/dL Lipase (13-60) U/L TSH 2.34 Urine Color Yellow (Yellow) Urine Appearance Clear (CLEAR) Urine pH 7 (5-7) Ur Specific Gravit y 1.010 (1.005-1.030) Urine Protein 3+ H (Negative) Urine Glucose (UA) Norm (Normal) Urine Ketones Negative (Negative) Urine Blood Neg (Negative) Urine Nitrate Negative (Negative) Urine Bilirubin Neg (Negative) Urine Urobilinogen Norm (Negative) mg/dL Ur Leukocyte Marisabel ase Negative (Negative) Urine RBC 0-4 H (0-2) /hpf Urine WBC 0-4 H (0-5) /hpf Ur Squamous Epith Cells None (0-5) /hpf Amorphous Sediment Not Reportable Urine Bacteria None (NONE) /hpf Ur Random Microalb umin (0-20) ug/dL Urine Creatinine Microalb/Creat Rat io (0-20) mg/dL Urine Total Protei n (0.0-20.0) mg/dL SARS-CoV-2 Ag (Rap id) Negative (Negative) 01/05/21 01/05/21 Range/Units 15:50 15:55 WBC (4.0-10.0) 10^3/ uL RBC (4.1-5.3) 10^6/u L Hgb (11.7-16.6) g/dL Hct (42.0-52.0) % MCV (80-94) fL MCH (28.0-34.0) pg MCHC (30.0-36.0) g/dL RDW (12.1-15.1) % Plt Count (130-400) 10^3/c mm MPV (7.4-10.4) fL Neut % (Auto) % Lymph % (Auto) % [place] % (Auto) % Eos % (Auto) % Baso % (Auto) % Neut # (Auto) (1.8-7.7) 10^3/u L Lymph # (Auto) (0.8-4.8) 10^3/u L [place] # (Auto) (0.2-0.9) 10^3/u L Eos # (Auto) (0.0-0.8) 10^3/u L Baso # (Auto) (0.0-0.1) 10^3/u L Nucleated RBC % (a uto) % Nucleated RBCs # /100WBC D-Dimer (0-0.59) ug/mIFE U Sodium (136-145) mmol/L Potassium (3.5-5.1) mmol/L Chloride (98-107) mmol/L Carbon Dioxide (22-29) mmol/L Anion Gap (5-19) BUN (6-20) mg/dL Creatinine (0.7-1.2) mg/dL GFR Calculation (90-130) mL/min Glucose (65-115) mg/dL Estimat Average Gl ucose Hemoglobin A1c (4.0-6.0) % Calculated Osmolal ity (285-295) mOsm/k g Calcium (8.5-10.5) mg/dL Total Bilirubin (0.15-1.2) mg/dL AST (0-40) U/L ALT (0-41) U/L Alkaline Phosphata se (40-130) IU/L NT-Pro-B Natriuret Pep (0-125) pg/mL Total Protein (6.6-8.7) g/dL Albumin (3.5-5.2) g/dL Globulin (1.3-4.6) g/dL Triglycerides (0-150) mg/dL Cholesterol (0-200) mg/dL LDL Cholesterol, C alc (50-129) mg/dL HDL Cholesterol (60-100) mg/dL LDL/HDL Ratio (0.00-3.22) RATI O Cholesterol/HDL Ra farshad (1.0-5.00) mg/dL Lipase (13-60) U/L TSH Urine Color (Yellow) Urine Appearance (CLEAR) Urine pH (5-7) Ur Specific Gravit y (1.005-1.030) Urine Protein (Negative) Urine Glucose (UA) (Normal) Urine Ketones (Negative) Urine Blood (Negative) Urine Nitrate (Negative) Urine Bilirubin (Negative) Urine Urobilinogen (Negative) mg/dL Ur Leukocyte Marisabel ase (Negative) Urine RBC (0-2) /hpf Urine WBC (0-5) /hpf Ur Squamous Epith Cells (0-5) /hpf Amorphous Sediment Urine Bacteria (NONE) /hpf Ur Random Microalb umin 46 H (0-20) ug/dL Urine Creatinine Cancelled 69 Microalb/Creat Rat io 667 H (0-20) mg/dL Urine Total Protei n 69.0 H (0.0-20.0) mg/dL SARS-CoV-2 Ag (Rap id) (Negative) Imaging Data^: Other Imaging: Radiologist's impression: [address] [id number] ReportSigned Patient: Sheila Conrad #: [id number]: 1985Acct#:[id number]/Sex: 35 / MADM Date: 01/05/21Loc: ERRoom/Bed:Attending Dr: Ordering Provider/Ordering MD: Lauren Thompson MD Date of Service: 01/05/21 Procedure(s): XR chest 1V portable [id number] Accession Number(s): [id number] Report Number: [id number] PROCEDURE INFORMATION: Exam: XR Chest Exam date and time: 01/05/2021 3:13 PM Age: 35 years old Clinical indication: Other: Swelling; Additional info: Rule out pathologies TECHNIQUE: Imaging protocol: XR of the chest. Views: 1 view. COMPARISON: CR XR chest 1V portable [id number] 10/11/2019 2:04 PM FINDINGS: Lungs: Unremarkable. No consolidation. Pleural spaces: Unremarkable. No pleural effusion. No pneumothorax. Heart/Mediastinum: Unremarkable. No cardiomegaly. Bones/joints: Unremarkable. XR/XR chest 1V portable [id number] IMPRESSION: No acute findings. Dictated By:David Martinez By:David Martinez Date/Time:01/05/21 1614DD/ 1612 Discharge Plan Discharge Patient Disposition: Admitted As Inpatient Admit Provider: Brett Capone Clinical Impression: CHF exacerbation Condition: Stable Coding Level of Care Code ED [employer] Team Leader for Billie Quach
--- NOTE | 2021-01-05 16:08 | PC.NURSE ---
PATIENT WAS ON ROOM AIR, O2 FALLS TO 88% HE IS PLACED ON 2L/NC AND SPO2 INCREASES TO 95%. NOTIFED
[2021-01-05 16:22] LABS: SARS Covid-2 Antigen Negative (Negative)
[2021-01-05 16:37] LABS: Bilirubin Urine Neg (Negative); Blood Urine Neg (Negative); Glucose Urine UA Norm (Normal); Ketones Urine Negative (Negative); Leukocyte Esterase Urine Negative (Negative); Nitrate Urine Negative (Negative); Protein Urine 3+ (Negative); Urine Appearance Clear (CLEAR); Urine Color Yellow (Yellow); Urobilinogen Urine Norm (Negative); pH Urine 7 (5-7)
[2021-01-05 16:38] LABS: RBC Urine 0-4 /hpf (0-2); WBC Urine 0-4 /hpf (0-5)
[2021-01-05 16:39] LABS: Add Urine Culture? No
[2021-01-05] MEDS: FUROsemide 10 mg/mL SDV 10mL 80 MG IVP (19:45)
--- NOTE | 2021-01-05 19:48 | PM.HP ---
Providers/Chief Complaint Primary Care Provider: AIRAM Wilson Chief Complaint: SENT BY PCP/BODY SWELLING, ABD LABS (HAS COPIES) History of Present Illness Cj Conrad is a 35 year old male no significant past medical history presented today with chief complaint of orthopnea, PND and weight gain. Patient is stating that he does not follow-up with PCP on regular basis. He was given antibiotics for possible cellulitis of lower extremities about 3 weeks ago. He is not sure about the name of the medication. He is not endorsing fever, nausea, vomiting or diarrhea. He is not vaccinated for COVID-19. For last 1 to 2 months he has been noticing orthopnea, PND, shortness of breath on exertion, weight gain, excessive snoring at night, endorsing grogginess in the morning with lack of energy. No previous history of SD, CHF, diabetes. In the ER he was requiring 2 L nasal cannula oxygen, he was on CPAP by the time I saw him, transitioned to with nasal cannula during my interview clinically looks fluid overloaded diagnostic work-up revealed leukocytosis, review of previous records revealed he has persistent leukocytosis, high BNP chest x-ray unremarkable clinically looks fluid overloaded he was given 40 mg IV Lasix proteinuria noted I requested urine creatinine, protein ratio started him on lisinopril, requested nocturnal pulse ox D-dimer on stat basis Review of Systems Const: Reports: change in appetite, change in weight and fatigue; Denies: fever(s), chills or body aches Eyes: Denies: change in vision ENMT: Denies: throat pain Card: Reports: edema, swelling of feet/ankles, dyspnea on exertion and orthopnea; Denies: chest pain or syncope Resp: Reports: dyspnea GI: Reports: early satiety and bloating; Denies: abdominal pain : Denies: flank pain Musc: Reports: extremity swelling Skin/Breast: Reports: lesions, dry skin and striae Neuro: Denies: headache(s) Psych: Denies: anxiety Endo: Denies: polyuria James/Lymph: Denies: easy bruising All/Imm: Denies: urticaria Medications/Allergies Home Medications Medication Instructions Recorded Confirmed Last Taken Type albuterol sulfate 2 inh INHALATION Q6H PRN #8 gm 10/11/19 01/05/21 Unknown Rx furosemide [Lasix] 40 mg PO BID 01/05/21 01/05/21 01/04/21 History mupirocin 1 applic TOPICAL BID 01/05/21 01/05/21 01/04/21 History potassium chloride 40 meq PO DAILY 01/05/21 01/05/21 01/04/21 History Allergies Allergy/AdvReac Type Severity Reaction Status Date / Time No Known Allergies Allergy Verified 01/05/21 14:27 PFSH Acute PFSH: Medical History (Updated 01/05/21 @ 20:18 by Brett Capone MD) No pertinent past medical history Surgical History (Updated 10/11/19 @ 14:11 by Sarai Mota) No history of previous surgery Family History (Updated 10/11/19 @ 14:12 by Sarai Mota) Other Diabetes Stroke Social History (Updated 01/05/21 @ 20:14 by Brett Capone MD) Smoking and tobacco status: current every day smoker cigarettes Packs smoked per day: 1 Years cigarettes smoked: 12 [ Other cigarette details: 12 pack smoking history ] Alcohol intake: never Substance/Drug Use: never Housing: House Vitals/I&O/Wt Last Vital Signs Temp 98.5 F 01/05/21 17:18 Pulse 78 01/05/21 19:19 Resp 20 H 01/05/21 19:19 BP 176/108 01/05/21 19:19 Pulse Ox 96 01/05/21 19:19 Weight last 48 hrs Weight 209.106 kg Weight 209.106 kg Physical Exam Narrative: EXAM NARRATIVE: Young male who was on CPAP at the time my evaluation was transitioned to trach cannula saturating well 9700% no active chest pain clinical signs of fluid overload bilateral lower extremity edema with mild hyperemia venous stasis dermatitis no active sign of cellulitis EOMI, PERRLA no neurological deficit appropriate mood and affect S1, S2 sinus rhythm no murmur appreciated bilateral breath sounds diminished distended bloated abdomen no signs of peritonitis Data : 01/05/21 14:51 01/05/21 14:51 Micro: Microbiology 01/05/21 18:57 Blood Culture - Preliminary Blood SPECIMEN COLLECTED A&P Assessment and plan (1) CHF exacerbation: Status: Acute (2) Proteinuria: Status: Acute (3) Morbid obesity: Status: Acute (4) Hypertension: Status: Acute (5) Acute respiratory failure with hypoxia: Status: Acute Additional A&P Information New onset CHF will request hemoglobin A1c, TSH to rule out metabolic X syndrome clinical signs of fluid overload, active smoker most likely cause obstructive sleep apnea and morbid obesity with underlying untreated hypertension no signs of ACS request echo in the morning and start him on Bumex overnight pulse oximetry, he will need outpatient sleep study right-sided heart failure presentation chest x-ray unremarkable Essential hypertension, will add hydrochlorothiazide and lisinopril considering his stage III hypertension most likely cause of sleep apnea Proteinuria requested urine creatinine/albumin ratio, added lisinopril, follow-up with A1c will need outpatient close monitoring morbid obesity: Weight loss regimen, DASH diet, exercise, sleep apnea treatment, optimization of his medications and lifestyle Acute hypoxia secondary to CHF exacerbation and underlying obesity hypoventilation/sleep apnea I have transitioned him down to 2 L nasal cannula saturating 97 to 100% chest x-ray unremarkable full code cardiac diet DVT prophylaxis 30 mg of Lovenox twice a day because of high BMI Attestations Medical Necessity Statement*: Anticipating discharge within 48 hours, overnight monitoring needed because of oxygen requirement due to CHF Time Spent in Patient Care: 16 - 35 minutes Coding Level of Care Code Acute Hospice Administrator for Sabasg Fwd Diagnoses CHF exacerbation I50.9 Proteinuria R80.9 Morbid obesity E66.01 Hypertension I10 Acute respiratory failure with hypoxia J96.01
[2021-01-05 20:19] LABS: D Dimer 1.28 ug/mIFEU (0-0.59)
--- NOTE | 2021-01-05 20:20 | CTR_ITS ---
PROCEDURE INFORMATION: Exam: CTA Chest With Contrast Exam date and time: 01/05/2021 8:20 PM Age: 35 years old Clinical indication: Shortness of breath; Additional info: Hypoxia new onset TECHNIQUE: Imaging protocol: Computed tomographic angiography of the chest with contrast. 3D rendering (Not supervised by radiologist): MIP and/or 3D reconstructed images were created by the technologist. Radiation optimization: All CT scans at this facility use at least one of these dose optimization techniques: automated exposure control; mA and/or kV adjustment per patient size (includes targeted exams where dose is matched to clinical indication); or iterative reconstruction. Contrast material: OMNI 350; Contrast volume: 95 ml; Contrast route: INTRAVENOUS (IV); COMPARISON: CT angio chest PE protcl [id number] 10/11/2019 4:43 PM RADIATION DOSE METRICS: Total DLP (mGy-cm): 1003.13 FINDINGS: Pulmonary arteries: Normal. No pulmonary emboli. Aorta: Unremarkable. No aortic aneurysm. No aortic dissection. Other arteries: There is a separate origin for the left vertebral artery. Veins: There is some reflux of contrast material into the inferior vena cava and hepatic veins, findings that can be related to right heart failure. Lungs: Subtle ground-glass opacities are present within the hemithoraces bilaterally possibly representing atelectasis and pneumonitis although mild pulmonary edema could have this appearance. Pleural spaces: Unremarkable. No pneumothorax. No pleural effusion. Heart: Unremarkable. No cardiomegaly. No pericardial effusion. Lymph nodes: Unremarkable. No enlarged lymph nodes. Bones/joints: Unremarkable. No acute fracture. Soft tissues: Unremarkable. CT/CT angio chest PE protcl [id number] IMPRESSION: 1. There is no evidence for pulmonary emboli. 2. Reflux of contrast into the inferior vena cava and hepatic veins and subtle haziness seen within the hemithoraces bilaterally could represent mild pulmonary edema and right heart failure. However, superimposed atelectasis or pneumonitis cannot be excluded. Radiation Dose CTDIVOL = (mGy): DLP = 1003.13 (mGy-cm)
[2021-01-05 20:46] LABS: Creatinine Urine, Random 69 mg/dL (39-259)
[2021-01-05 20:59] LABS: Microalbum Creatinine Ratio Ur 667 mg/dL (0-20); Microalbumin Random Urine 46 ug/dL (0-20)
[2021-01-05 21:03] LABS: Estmated Average Glucose 137; Hemoglobin A1C 6.4 % (4.0-6.0)
[2021-01-05 21:12] LABS: Chol HDL Ratio 4.31 mg/dL (1.0-5.00); Cholesterol 168 mg/dL (0-200); HDL Cholesterol 39 mg/dL (60-100); LDL Cholesterol Calculated 107 mg/dL (50-129); LDL HDL Ratio 2.74 RATIO (0.00-3.22); Thyroid Stimulating Hormone 2.34 uIU/mL (0.27-4.20); Triglycerides 110 mg/dL (0-150)
[2021-01-05] MEDS: iohexol 350 mg/mL 100 mL Btl IV (21:19)
[2021-01-05 22:16] LABS: Blood Gas Operator Identificat CAK; Blood Gas Sample Type Venous
[2021-01-05] MEDS: enoxaparin 30 mg/0.3 mL Syringe SUBCUT (22:41)
[2021-01-05] MEDS: hydroCHLOROthiazide 25 mg Tablet PO (22:42)
[2021-01-06] VITALS (8 sets, daily range): BP systolic 141–174; BP diastolic 70–90; PULSE 71–88; RESP 14–20; TEMP 36.7–36.9; O2SAT 90–95
[2021-01-06 04:13] LABS: Basophils # 0.1 10^3/uL (0.0-0.1); Basophils % 0.7 %; Eosinophils # 0.6 10^3/uL (0.0-0.8); Eosinophils % 4.5 %; Hematocrit 53.3 % (42.0-52.0); Hemoglobin 15.2 g/dL (11.7-16.6); Lymphocytes % 14.6 %; Mean Corpuscular HGB Conc 28.5 g/dL (30.0-36.0); Mean Corpuscular Hemoglobin 27.5 pg (28.0-34.0); Mean Corpuscular Volume 96.4 fL (80-94); Mean Platelet Volume 10.9 fL (7.4-10.4); Neutrophils # 9.76 10^3/uL (1.8-7.7); Neutrophils % 72.2 %; Nucleated Red Blood Cells % 0 %; Platelet Count 314 10^3/cmm (130-400); Red Blood Count 5.53 10^6/uL (4.1-5.3); Red Cell Distribution Width 15.5 % (12.1-15.1); White Blood Count 13.5 10^3/uL (4.0-10.0)
[2021-01-06 04:29] LABS: Anion Gap 10.7 (5-19); Blood Urea Nitrogen 10 mg/dL (6-20); Calcium 8.2 mg/dL (8.5-10.5); Carbon Dioxide 31 mmol/L (22-29); Chloride 98 mmol/L (98-107); Glomerular Filtration Rate 152.4 mL/min (90-130); Glucose 101 mg/dL (65-115); Osmolality Calculated 281 mOsm/kg (285-295); Potassium 3.7 mmol/L (3.5-5.1); Sodium 136 mmol/L (136-145)
[2021-01-06] MEDS: perflutren protein-a microsphr 0.22 mg/mL SDV 3 mL IV (07:22)
[2021-01-06] MEDS: bumetanide 1 mg Tablet PO (10:04)
[2021-01-06] MEDS: hydroCHLOROthiazide 25 mg Tablet PO (10:05)
[2021-01-06] MEDS: potassium chloride ER 20 mEq Tablet 40 MEQ PO (10:05)
[2021-01-06] MEDS: lisinopril 10 mg Tablet PO (10:05)
[2021-01-06] MEDS: enoxaparin 30 mg/0.3 mL Syringe SUBCUT ×2 (10:06→21:22)
--- NOTE | 2021-01-06 11:54 | PC.CHAP ---
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 visit [] Patient/Family/Request visit [] Outpatient visit [] Follow-up visit [] Physician referral [] Code/Alert [] Routine visit [] Staff referral [] Actively dying [] Patient sleeping [] Family support [] [] Out of room [] Palliative care [] [] Receiving care in room [] Pre-surgical visit [] Trauma [] Long length of stay [] ICU visit [xx] Other: ISOLATION Relational/Emotional Strength [] Patient feels connected with others/family/visitors/staff [] Distress [] Loneliness/isolation [] Abandonment Spirituality of Patient [] Person of Mary Lou [] Attends Taoism of their Mary Lou [] Believes in Prayer [] Reads Bible or Oriental Orthodox materials [] There are Spiritual issues to be addressed Supervisor Matrix Interventions [] Prayer [] Active listening [] Non-anxious presence [] Spiritual/emotional support [] Crisis/trauma care [] Spiritual counseling [] Bereavement support [] Provided bereavement packet [] Provided Bible/devotional materials [] Provided toy/stuffed animal, coloring book to patient or family member [] Provided Communion [] Anointing/Donald [] Salvation [] Completed spiritual assessment [] Other: Impact on Illness or Injury [] Angry [] Fearful [] Anxious [] Often cries [] Exhaustion [] Unable to work [] Unable to attend holiness [] Unable to walk/stand [] Unable to read [] Unable to drive [] Unable to eat/drink [] Unable to sleep [] Unable to be with family [] Patient intubated [] Other: Summary Time spent with patient
--- NOTE | 2021-01-06 14:14 | PM.PN ---
Subjective Subjective: Interval history: Patient was seen and examined this morning, patient is complaining of worsening bilateral lower extremity swelling, PND, significant weight gain in recent couple of months. overnight he was kept on, BiPAP. Vitals/I&O/Wt Last Vital Signs Temp 98.4 F 01/06/21 04:10 Pulse 88 01/06/21 12:00 Resp 18 01/06/21 12:00 BP 141/90 01/06/21 12:00 Pulse Ox 95 01/06/21 12:00 Weight last 48 hrs Weight 209.106 kg Weight 209.106 kg Physical Exam Const: COMMON NORMALS: patient oriented x3 HENMT: COMMON NORMALS: normocephalic and atraumatic HEAD & SCALP: normocephalic and atraumatic Resp: OTHER: Diminished air entry bilaterally Cardio: COMMON NORMALS: regular rate, regular rhythm, S1 normal heart sound present, S2 normal heart sound present, No gallops present (Cardio), No murmurs present (Cardio), No rub (Cardio) and Peripheral pulses 2+ throughout RATE: regular rate RHYTHM: regular rhythm HEART SOUNDS: S1 normal heart sound present and S2 normal heart sound present PERIPHERAL PULSES: Peripheral pulses 2+ throughout GI: COMMON NORMALS: Normal to inspection, nondistended, normoactive bowel sounds present, Soft to palpation, non-tender, No hepatosplenomegaly present and no masses AUSCULTATION: Yes normoactive bowel sounds PALPATION: Yes Soft to palpation and Yes No hepatosplenomegaly present RECTAL EXAM: Yes deferred Extremity: NARRATIVE EXTREMITY EXAM: Bilateral lower extremity 2 + pitting edema Neuro: COMMON NORMALS: patient oriented x3 Data : 01/06/21 03:38 01/06/21 03:38 Micro: Microbiology 01/05/21 15:05 Blood Culture - Preliminary Blood SPECIMEN COLLECTED 01/05/21 18:57 Blood Culture - Preliminary Blood SPECIMEN COLLECTED A&P Assessment and plan (1) CHF exacerbation: Status: Acute (2) Proteinuria: Status: Acute (3) Morbid obesity: Status: Acute (4) Acute respiratory failure with hypoxia: Status: Acute (5) Hypertension: Status: Acute (6) Obesity hypoventilation syndrome: Status: Acute (7) Obstructive sleep apnea: Status: Acute Additional A&P Information New onset CHF will request hemoglobin A1c, TSH to rule out metabolic X syndrome clinical signs of fluid overload, active smoker most likely cause obstructive sleep apnea and morbid obesity with underlying untreated hypertension no signs of ACS request echo in the morning and start him on Bumex overnight pulse oximetry, he will need outpatient sleep study right-sided heart failure presentation chest x-ray unremarkable Essential hypertension, will add hydrochlorothiazide and lisinopril considering his stage III hypertension most likely cause of sleep apnea Proteinuria requested urine creatinine/albumin ratio, added lisinopril, follow-up with A1c will need outpatient close monitoring morbid obesity: Weight loss regimen, DASH diet, exercise, sleep apnea treatment, optimization of his medications and lifestyle Acute hypoxia secondary to CHF exacerbation and underlying obesity hypoventilation/sleep apnea I have transitioned him down to 2 L nasal cannula saturating 97 to 100% chest x-ray unremarkable full code cardiac diet DVT prophylaxis 30 mg of Lovenox twice a day because of high BMI Attestations Medical Necessity Statement*: Patient is to be in hospital for management of decompensated heart failure. Coding Level of Care Code Acute Editor Dictionary for Billie Diazd Diagnoses CHF exacerbation I50.9 Proteinuria R80.9 Morbid obesity E66.01 Acute respiratory failure with hypoxia J96.01 Hypertension I10 Obesity hypoventilation syndrome E66.2 Obstructive sleep apnea G47.33
[2021-01-06 14:50] LABS: Coronavirus Test Green County Not Detected
--- NOTE | 2021-01-06 15:37 | PC.NURSE ---
Pt transferred to room 264 med-surg. Pt tolerated well. Pt had no c/o pain or discomfort at the time of transfer.
[2021-01-06 18:14] LABS: pH VBG 7.36 (7.32-7.42)
[2021-01-06 18:15] LABS: Base Excess VBG 8.6 mmol/L (-3.0-3.0); PCO2 VBG 65.2 mmHg (41-51)
--- NOTE | 2021-01-06 21:40 | USCV_ITS ---
Cj Conrad Age: 35 Gender: M : 1985 Exam Date: 01/06/2021 06:33 Ordering Phys: Brett Capone MD Technologist: Snow Griffin Exam Location: [facility] – [place] Indication: SOB CHF BP: 168 / 83 HR: 84 Rhythm: Sinus Technical Quality: Adequate MEASUREMENTS (Male / Female) Normal Values 2D ECHO LV Diastolic Diameter PLAX 6.0 cm 4.2 - 5.9 / 3.9 - 5.3 cm LV Systolic Diameter PLAX 3.9 cm LV Chamber Size 3.3 cm IVS Diastolic Thickness 1.3 cm 0.6 - 1.0 / 0.6 - 0.9 cm IVS Systolic Thickness 2.3 cm LVPW Diastolic Thickness 1.7 cm 0.6 - 1.0 / 0.6 - 0.9 cm LVPW Systolic Thickness 1.8 cm RV Chamber Size 3.3 cm LVOT Diameter 2.1 cm LV Ejection Fraction 2D Teich 62.8 % LV Ejection Fraction MOD 2C 51.3 % LV Ejection Fraction 2C AL 50.1 % LA Diameter 4.2 cm LA Width 3.6 cm LA Height 4.9 cm RA Width 3.6 cm RA Height 4.6 cm Aorta at Sinotubular Diameter 2.9 cm M-MODE LV Diastolic Diameter MM 4.3 cm 4.2 - 5.9 / 3.9 - 5.3 cm LV Systolic Diameter MM 2.1 cm LV Ejection Fraction MM Teich 83.1 % IVS Diastolic Thickness MM 1.3 cm 0.6 - 1.0 / 0.6 - 0.9 cm IVS Systolic Thickness MM 2.3 cm LVPW Diastolic Thickness MM 1.3 cm 0.6 - 1.0 / 0.6 - 0.9 cm LVPW Systolic Thickness MM 1.5 cm Aortic Annulus Diameter 3.9 cm LA Ao Ratio MM 1.0 MV E Point Septal Separation 0.5 cm DOPPLER AV Peak Velocity 156.0 cm/s LVOT Peak Velocity 128.0 cm/s AV Area Cont Eq vti 2.8 cm squared AV Area Cont Eq pk 2.8 cm squared MV Area PHT 4.4 cm squared Mitral E to A Ratio 1.4 MV E' Velocity 54.0 cm/s Mitral E to MV E' Ratio 6.7 Mitral E to LV E' Lateral Ratio 5.4 Mitral E to LV E' Septal Ratio 8.7 TR Peak Velocity 203.6 cm/s TR Peak Gradient 16.6 mmHg TR Mean Velocity 154.5 cm/s TR Mean Gradient 10.9 mmHg TR Velocity Time Integral 62.7 cm TV Peak E Velocity 82.0 cm/s PV Peak Velocity 75.0 cm/s RV Acceleration Time 0.2 s RV Ejection Time 0.5 s RV AcT/ET 0.5 FINDINGS Left Ventricle Normal left ventricular size. LV systolic function is normal with EF of 60-65%. No regional wall motion abnormalities. Right Ventricle Not well visualized Right Atrium The right atrium is normal in size. Left Atrium The left atrium is normal in size. Mitral Valve Grossly normal without significant stenosis or prolapse. There is no mitral regurgitation. Aortic Valve Grossly normal without significant sclerosis or stenosis. There is no aortic regurgitation. Tricuspid Valve Not well visualized. Insufficient TR jet to calculate RVSP Pulmonic Valve Not visualized Pericardium Normal pericardium without effusion. Aorta Normal ascending aorta dimension. CONCLUSIONS Technically very difficult study secondary to poor ultrasonic windows. LV systolic function is normal with EF of 60-65%. Valvular structures are not well-visualized however no gross abnormalities. No comparison studies are available. Elie Horn MD (Electronically Signed) Final Date: 07 January 2021 12:05 S
[2021-01-07] VITALS (8 sets, daily range): BP systolic 115–161; BP diastolic 71–76; PULSE 70–96; RESP 16–20; TEMP 36.4–36.9; O2SAT 86–99
[2021-01-07 06:27] LABS: Basophils # 0.1 10^3/uL (0.0-0.1); Basophils % 0.5 %; Eosinophils # 0.6 10^3/uL (0.0-0.8); Eosinophils % 4.1 %; Hemoglobin 16.1 g/dL (11.7-16.6); Lymphocytes # 1.7 10^3/uL (0.8-4.8); Lymphocytes % 12.7 %; Mean Corpuscular HGB Conc 29.3 g/dL (30.0-36.0); Mean Corpuscular Hemoglobin 27.8 pg (28.0-34.0); Mean Platelet Volume 11.1 fL (7.4-10.4); Monocytes # 0.8 10^3/uL (0.2-0.9); Neutrophils # 10.32 10^3/uL (1.8-7.7); Neutrophils % 75.7 %; Nucleated Red Blood Cells % 0 %; Platelet Count 321 10^3/cmm (130-400); Red Blood Count 5.79 10^6/uL (4.1-5.3); Red Cell Distribution Width 15.1 % (12.1-15.1); White Blood Count 13.6 10^3/uL (4.0-10.0)
[2021-01-07 07:02] LABS: Anion Gap 10.3 (5-19); Blood Urea Nitrogen 8 mg/dL (6-20); Calcium 8.5 mg/dL (8.5-10.5); Carbon Dioxide 35 mmol/L (22-29); Chloride 95 mmol/L (98-107); Glomerular Filtration Rate 188.1 mL/min (90-130); Glucose 101 mg/dL (65-115); Magnesium 1.9 mg/dL (1.7-2.3); Osmolality Calculated 280 mOsm/kg (285-295); Potassium 4.3 mmol/L (3.5-5.1); Sodium 136 mmol/L (136-145)
[2021-01-07] MEDS: enoxaparin 30 mg/0.3 mL Syringe SUBCUT ×2 (08:34→21:14)
[2021-01-07] MEDS: potassium chloride ER 20 mEq Tablet 40 MEQ PO (08:34)
[2021-01-07] MEDS: lisinopril 10 mg Tablet PO (08:34)
[2021-01-07] MEDS: hydroCHLOROthiazide 25 mg Tablet PO (08:34)
[2021-01-07] MEDS: bumetanide 1 mg Tablet PO (08:34)
--- NOTE | 2021-01-07 15:57 | PM.PN ---
Subjective Subjective: Interval history: Patient was seen and examined this morning,currently he is felling better today. SOB has improved, b/l l/e swelling is going down. Medications: Reviewed: Yes Vitals/I&O/Wt Last Vital Signs Temp 98.1 F 01/07/21 12:00 Pulse 85 01/07/21 14:34 Resp 18 01/07/21 14:34 BP 118/71 01/07/21 12:00 Pulse Ox 87 L 01/07/21 14:34 01/07/21 01/07/21 01/07/21 06:59 14:59 22:59 Intake Total 240 / 480 240 / 240 Output Total 1350 / 1350 Balance 240 / 480 -1110 / -1110 Physical Exam Const: COMMON NORMALS: patient oriented x3 HENMT: COMMON NORMALS: normocephalic and atraumatic HEAD & SCALP: normocephalic and atraumatic Resp: OTHER: Diminished air entry bilaterally Cardio: COMMON NORMALS: regular rate, regular rhythm, S1 normal heart sound present, S2 normal heart sound present, No gallops present (Cardio), No murmurs present (Cardio), No rub (Cardio) and Peripheral pulses 2+ throughout RATE: regular rate RHYTHM: regular rhythm HEART SOUNDS: S1 normal heart sound present and S2 normal heart sound present PERIPHERAL PULSES: Peripheral pulses 2+ throughout GI: COMMON NORMALS: Normal to inspection, nondistended, normoactive bowel sounds present, Soft to palpation, non-tender, No hepatosplenomegaly present and no masses AUSCULTATION: Yes normoactive bowel sounds PALPATION: Yes Soft to palpation and Yes No hepatosplenomegaly present RECTAL EXAM: Yes deferred Extremity: NARRATIVE EXTREMITY EXAM: Bilateral lower extremity 2 + pitting edema Neuro: COMMON NORMALS: patient oriented x3 Data : 01/07/21 05:42 01/07/21 05:42 Micro: Microbiology 01/05/21 15:05 Blood Culture - Preliminary Blood NEGATIVE TO DATE 01/05/21 18:57 Blood Culture - Preliminary Blood NEGATIVE TO DATE A&P Assessment and plan (1) CHF exacerbation: Status: Acute (2) Proteinuria: Status: Acute (3) Morbid obesity: Status: Acute (4) Acute respiratory failure with hypoxia: Status: Acute (5) Hypertension: Status: Acute (6) Obesity hypoventilation syndrome: Status: Acute (7) Obstructive sleep apnea: Status: Acute Additional A&P Information New onset CHF will request hemoglobin A1c, TSH to rule out metabolic X syndrome clinical signs of fluid overload, active smoker most likely cause obstructive sleep apnea and morbid obesity with underlying untreated hypertension no signs of ACS request echo in the morning and start him on Bumex overnight pulse oximetry, he will need outpatient sleep study right-sided heart failure presentation chest x-ray unremarkable Essential hypertension, will add hydrochlorothiazide and lisinopril considering his stage III hypertension most likely cause of sleep apnea Proteinuria requested urine creatinine/albumin ratio, added lisinopril, follow-up with A1c will need outpatient close monitoring morbid obesity: Weight loss regimen, DASH diet, exercise, sleep apnea treatment, optimization of his medications and lifestyle Acute hypoxia secondary to CHF exacerbation and underlying obesity hypoventilation/sleep apnea I have transitioned him down to 2 L nasal cannula saturating 97 to 100% chest x-ray unremarkable full code cardiac diet DVT prophylaxis 30 mg of Lovenox twice a day because of high BMI Attestations Medical Necessity Statement*: Patient needs to be in hospital for the managment of heart failure and the need for I,V Diuresis. Coding Level of Care Code Acute Medical Director Of Hospice for Chg Fwd Diagnoses CHF exacerbation I50.9 Proteinuria R80.9 Morbid obesity E66.01 Acute respiratory failure with hypoxia J96.01 Hypertension I10 Obesity hypoventilation syndrome E66.2 Obstructive sleep apnea G47.33
[2021-01-08] VITALS: BP 146/82; PULSE 85; RESP 16; TEMP 37; O2SAT 90
[2021-01-08 04:00] VITALS: BP 141/75; PULSE 86; RESP 18; TEMP 36.8; O2SAT 93
[2021-01-08 05:03] LABS: Basophils # 0.1 10^3/uL (0.0-0.1); Basophils % 0.5 %; Eosinophils # 0.7 10^3/uL (0.0-0.8); Eosinophils % 5.2 %; Hematocrit 54.3 % (42.0-52.0); Hemoglobin 16.2 g/dL (11.7-16.6); Lymphocytes # 1.7 10^3/uL (0.8-4.8); Lymphocytes % 12.6 %; Mean Corpuscular HGB Conc 29.8 g/dL (30.0-36.0); Mean Corpuscular Volume 93.8 fL (80-94); Mean Platelet Volume 10.6 fL (7.4-10.4); Monocytes # 0.8 10^3/uL (0.2-0.9); Monocytes % 6.4 %; Neutrophils # 9.82 10^3/uL (1.8-7.7); Neutrophils % 74.4 %; Nucleated Red Blood Cells % 0 %; Platelet Count 312 10^3/cmm (130-400); Red Blood Count 5.79 10^6/uL (4.1-5.3); White Blood Count 13.2 10^3/uL (4.0-10.0)
[2021-01-08 05:28] LABS: Blood Urea Nitrogen 8 mg/dL (6-20); Calcium 8.5 mg/dL (8.5-10.5); Carbon Dioxide 33 mmol/L (22-29); Chloride 94 mmol/L (98-107); Glomerular Filtration Rate 152.4 mL/min (90-130); Glucose 108 mg/dL (65-115); Magnesium 1.9 mg/dL (1.7-2.3); Osmolality Calculated 279 mOsm/kg (285-295); Sodium 135 mmol/L (136-145)
[2021-01-08 07:44] VITALS: BP 110/50; PULSE 87; RESP 18; TEMP 37; O2SAT 91
[2021-01-08 08:23] VITALS: PULSE 83; RESP 18; O2SAT 91
[2021-01-08] MEDS: hydroCHLOROthiazide 25 mg Tablet PO (09:19)
[2021-01-08] MEDS: lisinopril 10 mg Tablet PO (09:19)
[2021-01-08] MEDS: potassium chloride ER 20 mEq Tablet 40 MEQ PO (09:20)
[2021-01-08] MEDS: enoxaparin 30 mg/0.3 mL Syringe SUBCUT (09:20)
--- NOTE | 2021-01-08 11:26 | P.DS_ITS ---
Discharge Providers Date of Admission: 01/07/21 15:33 Date of Discharge: January 08, 2021 Attending Provider at Admission: Brett Capone MD Attending Provider at Discharge: Roshan López MD Primary Care Provider: AIRAM Wilson Diagnoses at Discharge Discharge Diagnosis (1) CHF exacerbation: Status: Resolved (2) Proteinuria: Status: Acute (3) Morbid obesity: Status: Acute (4) Acute respiratory failure with hypoxia: Status: Acute (5) Hypertension: Status: Acute (6) Obesity hypoventilation syndrome: Status: Acute (7) Obstructive sleep apnea: Status: Acute Reason for Visit Reason for Visit: SENT BY PCP/BODY SWELLING, ABD LABS (HAS COPIES) Hospital Course Hospital Course 35 year old male no significant past medical history presented today with chief complaint of orthopnea, PND and weight gain. Further work-up during the hospital stay revealed new onset decompensated heart failure with preserved ejection fraction.2D echo done during the hospital stay : LV systolic function is normal with EF of 60-65%.Valvular structures are not well-visualized however no gross abnormalities.It was a technically difficult study. Patient was kept on IV diuresis, to which he responded well, shortness of breath has improved a lot, bilateral lower extremity swelling was going down.CT angio done during the hospital stay: Showed no PE, subtle haziness seen within the hemithoraces bilaterally could represent mild pulmonary edema and right heart failure. Patient also has significant morbid obesity, as well as likely obesity hypoventilation syndrome, and possible obstructive sleep apnea.Patient Covid testing was negative. Patient has been asked to follow-up with cardiology as an outpatient, patient has also been asked to follow pulmonary medicine as an outpatient.Patient responded well to the above medical management and is being discharged in stable condition. Patient has also been counselled on smoking quitting. Physical Exam Const: COMMON NORMALS: patient oriented x3 HENMT: COMMON NORMALS: normocephalic and atraumatic HEAD & SCALP: normocephalic and atraumatic Cardio: COMMON NORMALS: regular rate, regular rhythm, S1 normal heart sound present, S2 normal heart sound present, No gallops present (Cardio), No murmurs present (Cardio), No rub (Cardio) and Peripheral pulses 2+ throughout RATE: regular rate RHYTHM: regular rhythm HEART SOUNDS: S1 normal heart sound present and S2 normal heart sound present PERIPHERAL PULSES: Peripheral puls es 2+ throughout GI: COMMON NORMALS: Normal to inspection, nondistended, normoactive bowel sounds present, Soft to palpation, non-tender, No hepatosplenomegaly present and no masses AUSCULTATION: Yes normoactive bowel sounds PALPATION: Yes Soft to palpation and Yes No hepatosplenomegaly present RECTAL EXAM: Yes deferred Neuro: COMMON NORMALS: patient oriented x3 Discharge Data Data Completed and Pending: Completed Studies During Hospitalization Category Date Time Status CT angio chest PE protcl [id number] Stat Cat Scan 01/05/21 20:20 Completed XR chest 1V chaya ble [id number] Stat Exams 01/05/21 15:13 Completed CV. echo wo/w con trast [id number] Routin e Ultrasound 01/06/21 21:40 Completed Pending at discharge Category Date Time Status Basic Metabolic P iyv AM LABS Lab 01/09/21 04:00 Ordered Blood Culture Sta t Lab 01/05/21 15:05 Results Complete Blood Co unt w/Auto AM LABS Lab 01/09/21 04:00 Ordered Magnesium AM LABS Lab 01/09/21 04:00 Ordered Venous Blood Gas Routine Lab 01/05/21 21:52 Results Labs from last 24 hours 01/08/21 01/08/21 04:54 04:54 WBC 13.2 H RBC 5.79 H Hgb 16.2 Hct 54.3 H MCV 93.8 MCH 28.0 MCHC 29.8 L RDW 15.0 Plt Count 312 MPV 10.6 H Neut % (Auto) 74.4 Lymph % (Auto) 12.6 [place] % (Auto) 6.4 Eos % (Auto) 5.2 Baso % (Auto) 0.5 Neut # (Auto) 9.82 H Lymph # (Auto) 1.7 [place] # (Auto) 0.8 Eos # (Auto) 0.7 Baso # (Auto) 0.1 Nucleated RBC % (a uto) 0 Nucleated RBCs # 0.0 Sodium 135 L Potassium 4.0 Chloride 94 L Carbon Dioxide 33 H Anion Gap 12.0 BUN 8 Creatinine 0.6 L GFR Calculation 152.4 H Glucose 108 Calculated Osmolal ity 279 L Calcium 8.5 Magnesium 1.9 Vitals: Last Vital Signs Temp 98.6 F 01/08/21 07:44 Pulse 83 01/08/21 08:23 Resp 18 01/08/21 08:23 BP 110/50 01/08/21 07:44 Pulse Ox 91 01/08/21 08:23 Discharge Plan Discharge Patient Disposition: Home Condition: Stable Prescriptions: New bumetanide 1 mg tablet 1 mg PO DAILY Qty: 30 RF: 3 Continued albuterol sulfate 90 mcg/actuation HFA aerosol inhaler 2 inh INHALATION Q6H PRN (Reason: shortness of breath or wheezing) Qty: 8 RF: 0 mupirocin 2 % Ointment 1 applic TOPICAL BID RF: 0 potassium chloride 20 mEq Tablet Extended Release 40 meq PO DAILY 30 Days Qty: 30 RF: 0 Discontinued furosemide [Lasix] 40 mg Tablet 40 mg PO BID RF: 0 Discharge Orders: Discharge Order (Routine); Ordered 01/08/21 Ordered By: Roshan López Referrals: Paresh Smith, INSURANCE SALES EXECUTIVE [Primary Care Provider] - Mitzy Hoffmann MD [Physician] - 2 weeks Nahomi Dill MD [Physician] - 1 week Discharge Diet: Low Salt Discharge Activity: Resume usual activity Patient Instructions: Bumetanide (By mouth), Hypoxia (GEN), Opioid Safety Discharge Attestations Time Spent in Discharge Care*: less than 30 min Specific Discharge Activities: educating patient, educating and/or supporting family/caregiver, discussing with pcp/other providers, discussing with special education case manager/social workers/dc planners, documenting/other paperwork and evaluating patient/reviewing data Status at Discharge: Cognitive status at discharge: cognitively intact , Behavioral status at discharge: cooperative , Functional status at discharge: independent ambulation Overall status at discharge: patient is back to baseline Quality Metrics Clinical Quality Measures During this hospital stay, did patient experience: None Coding Level of Care Code Acute Chg FW DC note Diagnoses CHF exacerbation I50.9 Proteinuria R80.9 Morbid obesity E66.01 Acute respiratory failure with hypoxia J96.01 Hypertension I10 Obesity hypoventilation syndrome E66.2 Obstructive sleep apnea G47.33
[2021-01-08] MEDS: bumetanide 0.25 mg/mL SDV 4 mL 1 MG IV (11:38)
[2021-01-08 12:00] VITALS: BP 136/85; PULSE 90; RESP 18; TEMP 37.2; O2SAT 90
--- NOTE | 2021-01-08 14:03 | PC.NURSE ---
DISCHARGE INSTRUCTIONS DISCHARGE INSTRUCTIONS GIVEN PER THIS NURSE - PT VERBALIZES UNDERSTANDING
[2021-01-08 14:08] VITALS: BP 136/85; PULSE 90; RESP 18; TEMP 37.2; O2SAT 90
--- NOTE | 2021-01-09 16:56 | PC.RESP ---
Smoking Cessation information sent to patient.
[2021-01-10 19:30] LABS: Venous Blood Gas Hematocrit 7.4 % (42-52)
--- NOTE | 2021-01-13 09:14 | PC.SOCIAL ---
discharge follow up call made to patient. patient saw pcp, Paresh Smith yesterday and she switched his medication back to Lasix. Patient has follow up appointments with Dr. Hoffmann and Dr. Dill on 01-23.
== END 2021-01-08 14:09 | disposition home or self-care (01) | DRG 291 ==
LOC: ER 16:20 → CSU 01-06 05:37 → MEDSURG 01-06 15:33
PROVIDERS: Physician Assistant; Admitting Provider Internal Medicine; Emergency Provider Emergency Medicine; PCP Nurse Practitioner; Visit Provider Internal Medicine
DX: I11.0 Hypertensive heart disease with heart failure (principal); J96.01 Acute respiratory failure with hypoxia; E66.2 Morbid (severe) obesity with alveolar hypoventilation; Z68.44 Body mass index [BMI] 60.0-69.9, adult; Z99.81 Dependence on supplemental oxygen; F17.210 Nicotine dependence, cigarettes, uncomplicated; I50.813 Acute on chronic right heart failure; Z79.51 Long term (current) use of inhaled steroids
CPT/HCPCS: 36415; 71045; 71275; 80048; 80053; 80061; 81001; 82044; 82803; 83036; 83690; 83735; 83880; 84156; 84443; 85025; 85378; 87040; 87426; 87635; 93005; 94660; 96372; 96374; 99285; C8929; G0378; J1650; J1940; J3490; Q9956; Q9967

== ENCOUNTER → 2021-01-23 14:50 | Outpatient (BNVA) | payer MEDICAID, SELFPAY | PROVIDERS: PCP Nurse Practitioner; Visit Provider Internal Medicine Cardiovascular Disease | DX: I50.9 Heart failure, unspecified (principal) | CPT/HCPCS: 80053; 83735; 83880 ==

== ENCOUNTER → 2021-02-13 16:31 | Outpatient (BNVA) | payer MEDICAID, SELFPAY | PROVIDERS: PCP Nurse Practitioner; Visit Provider Internal Medicine Cardiovascular Disease | DX: I50.9 Heart failure, unspecified (principal) | CPT/HCPCS: 80048; 83735; 83880 ==

== ENCOUNTER 2021-03-13 08:29 | Outpatient (CLI) | payer MEDICAID, SELFPAY ==
--- NOTE | 2021-03-13 08:45 | USCV_ITS ---
Cj Conrad Age: 35 Gender: M : 1985 Exam Date: 03/13/2021 09:17 Ordering Phys: Nahomi Dill MD ([email or web address]) Technologist: Keesha Romero [place] [facility] [place]: CHF BP: 138 / 76 HR: 82 Rhythm: Sinus Technical Quality: Poor secondary to COPD MEASUREMENTS (Male / Female) Normal Values 2D ECHO LV Diastolic Diameter PLAX 6.3 cm 4.2 - 5.9 / 3.9 - 5.3 cm LV Systolic Diameter PLAX 3.8 cm IVS Diastolic Thickness 1.7 cm 0.6 - 1.0 / 0.6 - 0.9 cm IVS Systolic Thickness 1.0 cm LVPW Diastolic Thickness 0.9 cm 0.6 - 1.0 / 0.6 - 0.9 cm LVPW Systolic Thickness 1.7 cm LV Ejection Fraction 2D Teich 68.8 % LV Ejection Fraction MOD 2C 46.1 % LV Ejection Fraction 2C AL 47.1 % FINDINGS Left Ventricle Normal left ventricular cavity size. Normal left ventricular systolic function. Left ventricular ejection fraction is estimated at 70 %. No regional wall motion abnormalities. Abnormal septal motion. Right Ventricle Dilated right ventricle with decreased right ventricular systolic function. Right Atrium Right atrium not well visualized. Left Atrium Left atrium not well visualized. Mitral Valve Mitral valve not well visualized. Aortic Valve Aortic valve not well visualized. Tricuspid Valve Tricuspid valve not well visualized. Pulmonic Valve Pulmonic valve not well visualized. Pericardium No pericardial effusion. Aorta Aorta not well visualized. CONCLUSIONS 1. This is a limited study with ultrasound enhancing agent. 2. Normal left ventricular cavity size and systolic function. Left ventricular ejection fraction is estimated at 70 %. No regional wall motion abnormalities. Abnormal septal motion. 3. Dilated right ventricle with decreased right ventricular systolic function. Nahomi Dill MD (Electronically Signed) Final Date: 15 March 2021 19:59 S
[2021-03-13] MEDS: perflutren protein-a microsphr 0.22 mg/mL SDV 3 mL IV (09:55)
== END 2021-03-13 08:30 | disposition home or self-care (01) ==
LOC: US 08:35
PROVIDERS: PCP Nurse Practitioner; Visit Provider Internal Medicine Cardiovascular Disease
DX: I50.9 Heart failure, unspecified (principal)
CPT/HCPCS: C8924

== ENCOUNTER 2021-03-14 07:10 | Outpatient (CLI) | payer MEDICAID, SELFPAY ==
--- NOTE | 2021-03-14 10:42 | PFTS_ITS ---
Date of Study:03/14/21 Date of Dictation: 03/15/2021 MECHANICS: Postbronchodilator forced vital capacity (FVC) is reduced. Postbronchodilator forced expiratory volume in one second (FEV1) moderately reduced. FEV1/FVC is reduced. There is significant response to bronchodilators. FLOW VOLUME LOOP: Mild scooping of end expiratory limb suggestive of airway obstruction . LUNG VOLUMES: Total lung capacity (TLC) is . Residual volume (RV) is increased suggestive of air trapping. DIFFUSING CAPACITY FOR CARBON MONOXIDE: Normal . INTERPRETATION: The pulmonary function tests are consistent with obstructive ventilatory defect with lung volumes showing severe air trapping. There is significant response to bronchodilators suggestive of reversible obstructive lung disease. Clinical correlation recommended. [facility]
[2021-03-15 15:42] LABS: Immunoglobulin E 328 kU/L (<OR=114)
[2021-03-15 16:12] LABS: Alternaria Alternata (M6) Ige <0.10 kU/L; Alternaria Class 0; Bermuda Class 0; Bermuda Grass (G2) Ige <0.10 kU/L; Cat Dander (E1) Ige <0.10 kU/L; Cat Dander Class 0; Common Ragweed (Short) (W1) Ig <0.10 kU/L; D. Farinae Class 1; Dermatophagoides Class 2; Dermatophagoides Farinae (D2) 0.51 kU/L; Dermatophagoides Pteronyssinus 0.85 kU/L; Dog Dander (E5) Ige 5.13 kU/L; Dog Dander Class 3; Elm (T8) Ige <0.10 kU/L; Elm Class 0; English Plantain (W9) Ige <0.10 kU/L; English Plantain Class 0; House Dust (Greer) (H1) Ige 0.33 kU/L; House Dust (Hollister- Stier) 0.22 kU/L; House Dust Class 0/1; Immunoglobulin E 308 kU/L (<OR=114); Johnson Grass (G10) Ige <0.10 kU/L; Johnson Grass Cl 0; June Grass Class 0; June Grass(Kentucky Blue) (G8) <0.10 kU/L; Lamb'S Quarters (Goose Foot) <0.10 kU/L; Lamb'S Quarters Class 0; Maple (Box Elder) (T1) Ige <0.10 kU/L; Maple Class 0; Meadow Fescue (G4) Ige <0.10 kU/L; Meadow Fescue Class 0; Mucor Racemosus Class 0; Oak (T7) Ige <0.10 kU/L; Oak Class 0; Orchard Grass (Cocksfoot) (G3) <0.10 kU/L; Penicillium Class 1; Penicillium Notatum (M1) Ige 0.59 kU/L; Perennial Rye Grass (G5) Ige <0.10 kU/L; Perennial Rye Grass Class 0; Ragweeed Class 0; Rough Marsh Elder (W16) Ige <0.10 kU/L; Rough Marsh Elder Class 0; Sweet Vernal Class 0; Sweet Vernal Grass (G1) Ige <0.10 kU/L; Timothy Grass (G6) Ige <0.10 kU/L; Timothy Grass Class 0
== END 2021-03-14 07:11 | disposition home or self-care (01) ==
LOC: RT 07:13
PROVIDERS: PCP Nurse Practitioner; Visit Provider Internal Medicine Critical Care Medicine
DX: J45.909 Unspecified asthma, uncomplicated (principal); R06.02 Shortness of breath
CPT/HCPCS: 36415; 82785; 86003; 94060; 94726; 94729; J7611

== ENCOUNTER 2021-05-09 12:00 | Outpatient (CLI) | payer MEDICAID, SELFPAY | END 2021-05-09 12:01 | disposition home or self-care (01) | LOC: SLEEP 05-10 14:56 | PROVIDERS: PCP Nurse Practitioner; Visit Provider Internal Medicine Critical Care Medicine | DX: G47.33 Obstructive sleep apnea (adult) (pediatric) (principal) | CPT/HCPCS: G0399 ==

== ENCOUNTER 2022-08-02 15:54 | Inpatient (IN) | payer MEDICAID, SELFPAY ==
[2022-08-02 16:22] VITALS: BP 124/85; PULSE 98; RESP 20; TEMP 36.8; O2SAT 79
--- NOTE | 2022-08-02 17:23 | XRR_ITS ---
PROCEDURE INFORMATION: Exam: XR Chest Exam date and time: 08/02/2022 5:30 PM Age: 36 years old Clinical indication: Shortness of breath; Additional info: Shortness of breath, low o2 TECHNIQUE: Imaging protocol: Radiologic exam of the chest. Views: 1 view. COMPARISON: CR XR chest 1V portable [id number] 01/05/2021 3:29 PM FINDINGS: Lungs: Visualized portions of the lungs are clear. There is no pulmonary venous congestion. Pleural spaces: Unremarkable. No pleural effusion. No pneumothorax. Heart/Mediastinum: Heart is within normal limits of size. Bones/joints: Unremarkable. XR/XR chest 1V portable [id number] IMPRESSION: No acute infiltrate.
--- NOTE | 2022-08-02 17:28 | ED_ITS ---
HPI - Skin/Abscess/Foreign Bdy General: Chief complaint: Skin/Abscess/Foreign Body Stated complaint: body swelling Time Seen by Provider: 08/02/22 17:08 Source: patient Mode of arrival: ambulatory History of Present Illness: 36-year-old male with a history of morbid obesity, previous DVT and pulmonary emboli, on Coumadin, obesity hypoventilation syndrome, congestive heart failure, COPD with ongoing tobacco use who presents today because of a 30 pound weight gain and associated swelling of his abdominal wall, scrotum and bilateral lower extremities. He states 1 week ago, he had felt a nodule on the left side of his scrotum. He squeezed to that area and bright red blood drained from that region. Since that time, he has developed swelling of the pubic region, lower abdominal wall and both lower extremities. He had a 30 pound weight gain over the last week. He is having increasing shortness of breath. He has been having fevers, chills and sweats with generalized malaise. Review of Systems Narrative: See HPI PFSH ED PFSH: Medical History Acute respiratory failure with hypoxia BMI 50.0-59.9, adult CHF exacerbation Deep vein thrombosis Hypertension Morbid obesity Obesity hypoventilation syndrome Obstructive sleep apnea Proteinuria Pulmonary emboli Smoker Warfarin anticoagulation Surgical History No history of previous surgery Family History Sister Brain aneurysm Mother History of multiple strokes Chronic kidney disease on chronic dialysis Grandmother CAD (coronary artery disease) Other Diabetes Stroke Social History Second hand smoke exposure: No Smoking risk assessment/counseling performed?: Yes Alcohol intake: never Counseling given: No Counseling given: No Lives independently: Yes Housing: House Current gender identity: Male Physical Exam Narrative: EXAM NARRATIVE: Morbidly obese, chronically ill-appearing male. The patient appears short of breath. Const: NUTRITIONAL APPEARANCE: obese HENMT: COMMON NORMALS: normocephalic, atraumatic, Normal nasal mucous membranes and turbinates present and moist oral mucous membranes HEAD & SCALP: normocephalic and atraumatic NOSE: Normal nasal mucous membranes and turbinates present Eye: COMMON NORMALS: Equal, round and reactive pupils present, EOMs intact bilaterally and conjunctivae normal CONJUNCTIVA: Yes conjunctivae normal PUPIL: Yes Equal, round and reactive pupils present Neck/C-Spine: OTHER: Trachea midline Course ED course: Patient's been evaluated in the emergency department. He had an IV placed and labs obtained. He has had blood cultures as well as a lactic acid sent. On examination, I suspect that this is mostly congestive heart failure with some superimposed cellulitis. I do not feel that he has Demond's gangrene. He has no abdominal tenderness and I do not feel that CT imaging is needed. Patient's been given Bumex 2 mg IV as well as vancomycin IV. I discussed with the hospitalist who are in agreement with admission.. Patient's white blood cell count 11.3. Lactate is 1.7. BNP is 1769. CRP is 28.7. Consultations: Consultation #1: Discussed with Dr. López who is in agreement with admission. Vital Signs: Vital signs: Vital Signs Temperature 98.3 F 08/02/22 16:22 Pulse Rate 98 08/02/22 16:22 Respiratory Rate 20 H 08/02/22 16:22 Blood Pressure 124/85 08/02/22 16:22 Pulse Oximetry 79 L 08/02/22 16:22 Oxygen Delivery Me thod 08/02/22 16:22 MDM - Skin/Abscess/Foreign Bdy Medicial Decision Making 36-year-old male morbidly obese, history of DVT, pulmonary emboli, congestive heart failure, obstructive sleep apnea who presents with a 30 pound weight gain over the past week with associated erythema of his lower extremities and abdominal wall. On examination clinically I feel he has cellulitis of the lower extremities extending onto the mons pubis and onto the lower abdominal wall. Scrotal wall does not appear to be involved. His lower extremities have 4+ tight edema. With no scrotal involvement, I do not feel that he has Demond's gangrene. He had an IV placed and labs obtained. He has been given Bumex 2 mg IV. He has been given vancomycin IV. Labs have been obtained. Given the patient's 480 pound body size, he is not going to be able to be imaged on our CT scanner here. Patient's white blood cell count is 11.3. He is on Coumadin for atrial fibrillation with an INR of 2.2. Sodium 141, potassium 3.5, chloride 94, CO2 is 36. BUN 12, creatinine 0.8. Glucose 126. Lactic acid is normal at 1.7. BNP is 1769. Lab Data 08/02/22 17:43 08/02/22 17:43 Radiology Impressions Chest X-Ray 08/02/22 17:23 IMPRESSION: No acute infiltrate. Laboratory Results WBC 11.3 10^3/uL (4.0-10.0) H 08/02/22 17:43 RBC 5.81 10^6/uL (4.1-5.3) H 08/02/22 17:43 Hgb 17.0 g/dL (11.7-16.6) H 08/02/22 17:43 Hct 57.5 % (42.0-52.0) H 08/02/22 17:43 MCV 99.0 fl (80-94) H 08/02/22 17:43 MCH 29.3 pg (28.0-34.0) 08/02/22 17:43 MCHC 29.6 g/dL (30.0-36.0) L 08/02/22 17:43 RDW 18.6 % (12.1-15.1) H 08/02/22 17:43 Plt Count 317 10^3/cmm (130-400) 08/02/22 17:43 MPV 11.1 fL (7.4-10.4) H 08/02/22 17:43 Neut % (Auto) 77.9 % 08/02/22 17:43 Lymph % (Auto) 11.5 % 08/02/22 17:43 [place] % (Auto) 6.9 % 08/02/22 17:43 Eos % (Auto) 2.6 % 08/02/22 17:43 Baso % (Auto) 0.5 % 08/02/22 17:43 Neut # (Auto) 8.76 10^3/uL (1.8-7.7) H 08/02/22 17:43 Lymph # (Auto) 1.3 10^3/uL (0.8-4.8) 08/02/22 17:43 [place] # (Auto) 0.8 10^3/uL (0.2-0.9) 08/02/22 17:43 Eos # (Auto) 0.3 10^3/uL (0.0-0.8) 08/02/22 17:43 Baso # (Auto) 0.1 10^3/uL (0.0-0.1) 08/02/22 17:43 Nucleated RBC % (auto) 0 % 08/02/22 17:43 Nucleated RBCs # 0.0 /100WBC 08/02/22 17:43 PT 25.20 SECONDS (12.1-14.9) H 08/02/22 17:43 INR 2.20 (0.8-1.2) H 08/02/22 17:43 Sodium 141 mmol/L (136-145) 08/02/22 17:43 Potassium 3.5 mmol/L (3.5-5.1) 08/02/22 17:43 Chloride 94 mmol/L (98-107) L 08/02/22 17:43 Carbon Dioxide 36 mmol/L (22-29) H 08/02/22 17:43 Anion Gap 14.5 (5-19) 08/02/22 17:43 BUN 12 mg/dL (6-20) 08/02/22 17:43 Creatinine 0.8 mg/dL (0.7-1.2) 08/02/22 17:43 GFR Calculation 108.8 mL/min (90-130) 08/02/22 17:43 Glucose 126 mg/dL (65-115) H 08/02/22 17:43 Calculated Osmolality 293 mOsm/kg (285-295) 08/02/22 17:43 Lactate 1.7 mmol/L (0.5-2.2) 08/02/22 17:43 Calcium 9.0 mg/dL (8.5-10.5) 08/02/22 17:43 Magnesium 1.6 mg/dL (1.7-2.3) L 08/02/22 17:43 Total Bilirubin 0.4 mg/dL (0.15-1.2) 08/02/22 17:43 AST 26 U/L (0-40) 08/02/22 17:43 ALT 16 U/L (0-41) 08/02/22 17:43 Alkaline Phosphatase 147 U/L (40-130) H 08/02/22 17:43 C-Reactive Protein 28.7 mg/L (0.0-4.9) H 08/02/22 17:43 NT-Pro-B Natriuret Pep 1769 pg/mL (0-125) H 08/02/22 17:43 Total Protein 7.2 g/dL (6.6-8.7) 08/02/22 17:43 Albumin 3.2 g/dL (3.5-5.2) L 08/02/22 17:43 Globulin 4.0 g/dL (1.3-4.6) 08/02/22 17:43 SARS-CoV-2 Ag (Rapid) Negative (Negative) 08/02/22 17:43 Discharge Plan Discharge Patient Disposition: Admitted As Inpatient Clinical Impression: Congestive heart failure, Cellulitis Condition: Stable Prescriptions: No Action albuterol sulfate [ProAir HFA] 90 mcg/actuation HFA aerosol inhaler 2 puff inhalation 6XD PRN (Reason: shortness of breath or wheezing) 30 Days Qty: 8.5 3RF warfarin [Jantoven] 6 mg tablet 6 mg PO BID Protocol: Dose Management Condition: Saturday Dose/Route: 12 mg Instruction: 2 x 6 mg tablets Condition: Saturday Dose/Route: 12 mg Instruction: 2 x 6 mg tablets Condition: Saturday Dose/Route: 12 mg Instruction: 2 x 6 mg tablets Condition: Saturday Dose/Route: 12 mg Instruction: 2 x 6 mg tablets Condition: Dose/Route: 12 mg Instruction: 2 x 6 mg tablets Condition: Saturday Dose/Route: 12 mg Instruction: 2 x 6 mg tablets Condition: Saturday Dose/Route: 12 mg Instruction: 2 x 6 mg tablets Protocol Text: Adjustment Start Date: 08/02/22 INR Value: Not Reportable INR Date: 08/02/22 Recheck Date: 08/16/22 potassium chloride 20 mEq tablet extended release 40 meq PO BID furosemide 80 mg tablet 80 mg PO BID Qty: 60 2RF Rx Instructions: MUST have follow-up for further refills metolazone 5 mg tablet 2.5 mg PO DAILY Qty: 45 1RF Referrals: Paresh Smith FNP [Primary Care Provider] - Coding Level of Care Code ED [employer]
[2022-08-02 18:08] LABS: Basophils # 0.1 10^3/uL (0.0-0.1); Basophils % 0.5 %; Eosinophils # 0.3 10^3/uL (0.0-0.8); Eosinophils % 2.6 %; Hematocrit 57.5 % (42.0-52.0); Lymphocytes # 1.3 10^3/uL (0.8-4.8); Lymphocytes % 11.5 %; Mean Corpuscular HGB Conc 29.6 g/dL (30.0-36.0); Mean Corpuscular Hemoglobin 29.3 pg (28.0-34.0); Mean Platelet Volume 11.1 fL (7.4-10.4); Monocytes # 0.8 10^3/uL (0.2-0.9); Monocytes % 6.9 %; Neutrophils # 8.76 10^3/uL (1.8-7.7); Neutrophils % 77.9 %; Nucleated Red Blood Cells % 0 %; Platelet Count 317 10^3/cmm (130-400); Red Blood Count 5.81 10^6/uL (4.1-5.3); Red Cell Distribution Width 18.6 % (12.1-15.1); White Blood Count 11.3 10^3/uL (4.0-10.0)
[2022-08-02 18:40] LABS: Lactate (Lactic Acid level) 1.7 mmol/L (0.5-2.2)
[2022-08-02 18:41] LABS: Alanine Aminotransferase 16 U/L (0-41); Albumin Level 3.2 g/dL (3.5-5.2); Alkaline Phosphatase 147 U/L (40-130); Anion Gap 14.5 (5-19); Aspartate Amino Transferase 26 U/L (0-40); Blood Urea Nitrogen 12 mg/dL (6-20); C Reactive Protein 28.7 mg/L (0.0-4.9); Carbon Dioxide 36 mmol/L (22-29); Chloride 94 mmol/L (98-107); Glomerular Filtration Rate 108.8 mL/min (90-130); Glucose 126 mg/dL (65-115); Magnesium 1.6 mg/dL (1.7-2.3); NT Pro B Type Natriuretic Pept 1769 pg/mL (0-125); Osmolality Calculated 293 mOsm/kg (285-295); Potassium 3.5 mmol/L (3.5-5.1); Sodium 141 mmol/L (136-145); Total Bilirubin 0.4 mg/dL (0.15-1.2); Total Protein 7.2 g/dL (6.6-8.7)
--- NOTE | 2022-08-02 18:54 | PC.NURSE ---
REPORT GIVEN DERRICK PAGE ASSUMED CARE.
[2022-08-02 19:01] LABS: SARS Covid-2 Antigen Negative (Negative)
[2022-08-02] MEDS: bumetanide 0.25 mg/mL SDV 4 mL 2 MG IVP (19:13)
[2022-08-02] MEDS: vancomycin 1,500 MG/300 ML PIGGYBACK 200 MG IV (19:18)
[2022-08-02 20:33] VITALS: BP 152/84; PULSE 92; RESP 22; O2SAT 94
[2022-08-02 20:50] VITALS: BP 134/77; RESP 22; O2SAT 92
[2022-08-02 21:24] VITALS: BP 134/75; PULSE 82; RESP 20; TEMP 36.6; O2SAT 98
--- NOTE | 2022-08-02 21:29 | P.HP_ITS ---
Providers/Chief Complaint Admitting Physician: Roshan López MD Primary Care Provider: AIRAM Wilson Chief Complaint: body swelling History of Present Illness Cj Conrad is a 36 year old male with past medical history of morbid obesity, DVT PE, on warfarin, morbid obesity, came in today with chief complaint of 30 pound weight gain and associated swelling of his abdominal wall, scrotum and bilateral lower extremities.?He states 1 week ago, he had felt a nodule on the left side of his scrotum.? He squeezed to that area and bright red blood drained from that region.? Since that time, he has developed swelling of the pubic region, lower abdominal wall and both lower extremities.? He had a 30 pound weight gain over the last week. Lately patient has also started expe riencing increasing worsening shortness of breath orthopnea and PND. X-ray chest has shown: No acute infiltrates. Pertinent labs: WBC 11.3, H&H: 17/57, PLT: 317 , serum sodium 141, serum potassium 3.5, BUN 12, serum creatinine 0.8 ABG: pH 7.35, PCO2 79, PO2 121, FiO2 40%. Review of Systems General: Reports: 10 or more systems reviewed and unremarkable except in HPI and below Const: Denies: fever(s), chills, body aches, change in appetite or diaphoresis Card: Reports: edema, swelling of feet/ankles, dyspnea on exertion and orthopnea; Denies: palpitations or leg pain with exertion Resp: Reports: dyspnea; Denies: productive cough, wheezing or pain on inspiration GI: Denies: abdominal pain, nausea, vomiting, diarrhea or constipation : Denies: flank pain or difficulty urinating Musc: Reports: extremity pain and extremity swelling; Denies: back pain Neuro: Denies: headache(s), difficulty walking or confusion Medications/Allergies Home Medications Medication Instructions Recorded Confirmed Last Taken Type albuterol sulfate 90 mcg/actuation 2 puff inhalation 6XD PRN 02/13/21 08/02/22 Unknown Rx aerosol inhaler (ProAir HFA) shortness of breath or wheezing 30 days #8.5 grams furosemide 80 mg tablet 80 mg PO BID #60 tabs 04/09/22 08/02/22 08/02/22 Rx metolazone 5 mg tablet 2.5 mg PO DAILY #45 tabs 05/21/22 08/02/22 08/02/22 Rx warfarin 6 mg tablet (Jantoven) 6 mg PO BID 07/18/22 08/02/22 08/02/22 History potassium chloride 20 mEq 40 meq PO BID 08/02/22 08/02/22 08/02/22 History tablet,extended release Allergies Allergy/AdvReac Type Severity Reaction Status Date / Time No Known Allergies Allergy Verified 08/02/22 09:03 PFSH Acute PFSH: Medical History Acute respiratory failure with hypoxia BMI 50.0-59.9, adult CHF exacerbation Deep vein thrombosis Hypertension Morbid obesity Obesity hypoventilation syndrome Obstructive sleep apnea Proteinuria Pulmonary emboli Smoker Warfarin anticoagulation Surgical History No history of previous surgery Family History Sister Brain aneurysm Mother History of multiple strokes Chronic kidney disease on chronic dialysis Grandmother CAD (coronary artery disease) Other Diabetes Stroke Social History Second hand smoke exposure: No Smoking risk assessment/counseling performed?: Yes Alcohol intake: never Counseling given: No Counseling given: No Lives independently: Yes Housing: House Current gender identity: Male Vitals/I&O/Wt Last Vital Signs Temp 98.3 F 08/02/22 16:22 Pulse 92 08/02/22 20:33 Resp 22 H 08/02/22 20:50 BP 134/77 08/02/22 20:50 Pulse Ox 92 08/02/22 20:50 O2 Del Method 08/02/22 20:33 O2 Flow Rate 6 08/02/22 20:33 08/02/22 08/02/22 08/02/22 06:59 14:59 22:59 Intake Total 300 / 300 Balance 300 / 300 Weight last 48 hrs Weight 217.724 kg Physical Exam Const: COMMON NORMALS: patient oriented x3 HENMT: COMMON NORMALS: normocephalic and atraumatic HEAD & SCALP: normocephalic and atraumatic Resp: COMMON NORMALS: clear to auscultation bilaterally EFFORT & INSPECTION: Yes symmetric chest movement AUSCULTATION: clear to auscultation bilaterally Cardio: COMMON NORMALS: regular rate, regular rhythm, S1 normal heart sound present, S2 normal heart sound present, No gallops present (Cardio), No murmurs present (Cardio), No rub (Cardio) and Peripheral pulses 2+ throughout RATE: regular rate RHYTHM: regular rhythm HEART SOUNDS: S1 normal heart sound present and S2 normal heart sound present PERIPHERAL PULSES: Peripheral pulses 2+ throughout GI: COMMON NORMALS: Normal to inspection, nondistended, normoactive bowel sounds present, Soft to palpation, non-tender, No hepatosplenomegaly present and no masses AUSCULTATION: Yes normoactive bowel sounds PALPATION: Yes Soft to palpation and Yes No hepatosplenomegaly present RECTAL EXAM: Yes deferred Extremity: NARRATIVE EXTREMITY EXAM: 2+ bilateral lower extremity pitting edema, bilateral lower extremity redness. Neuro: COMMON NORMALS: patient oriented x3 Data 08/02/22 17:43 08/02/22 17:43 Micro: Microbiology 08/02/22 17:57 Blood Culture - Preliminary Blood SPECIMEN COLLECTED 08/02/22 17:43 Blood Culture - Preliminary Blood SPECIMEN COLLECTED A&P Assessment and plan (1) Congestive heart failure: (2) Cellulitis: (3) BMI 60.0-69.9, adult: (4) Scrotal edema: (5) Pulmonary emboli: (6) Deep vein thrombosis: (7) Warfarin anticoagulation: (8) Obesity hypoventilation syndrome: (9) Obstructive sleep apnea: (10) Morbid obesity: (11) Respiratory failure with hypoxia and hypercapnia: Plan 36 year old male with past medical history of morbid obesity, DVT PE, on warfarin, morbid obesity, came in today with chief complaint of 30 pound weight gain and associated swelling of his abdominal wall, scrotum and bilateral lower extremities.?He states 1 week ago, he had felt a nodule on the left side of his scrotum.? He squeezed to that area and bright red blood drained from that region.? Since that time, he has developed swelling of the pubic region, lower abdominal wall and both lower extremities.? He had a 30 pound weight gain over the last week. Lately patient has also started experiencing increasing worsening shortness of breath orthopnea and PND. Assessment: Decompensated heart failure with preserved ejection fraction as well as RV failure: Continue Lasix 60 IV TID Intake output charting Monitor daily weight Monitor electrolytes Continue telemetry monitoring Fluid restriction Respiratory failure with hypoxia and hypercapnia: Multifactorial secondary to decompensated heart failure, СВЕТЛАНА/ OHS ABG: pH 7.35, PCO2 79, PO2 121, FiO2 40%. Currently patient has been placed on BiPAP DuoNebs Supplemental oxygen as needed Bilateral lower extremity cellulitis: Currently on IV levofloxacin History of DVT PE: On warfarin CODE STATUS: Full code DVT prophylaxis: Appropriately covered with warfarin Attestations Medical Necessity Statement*: Patient needs to be in hospital for management of decompensated heart failure. Anticipated length of stay greater than 2 midnights Time Spent in Patient Care: Greater than 35 minutes Coding Level of Care Code 93908 Diagnoses Congestive heart failure I50.9 Cellulitis L03.90 BMI 60.0-69.9, adult Z68.44 Scrotal edema N50.89 Pulmonary emboli I26.99 Deep vein thrombosis I82.409 Warfarin anticoagulation Z79.01 Obesity hypoventilation syndrome E66.2 Obstructive sleep apnea G47.33 Morbid obesity E66.01 Respiratory failure with hypoxia and hypercapnia J96.91; J96.92
[2022-08-02] MEDS: magnesium sulfate premix 2 GM/50 ML PIGGYBACK IV (22:29)
[2022-08-02 22:45] LABS: ABG PH Result 7.35 (7.35-7.45); Arterial Blood Gas Hematocrit 53.2 % (42-52); Blood Gas Allen Test Pos; Blood Gas Sample Type Arterial; Carboxyhemoglobin 5.3 %THgb (0.4-20.1); HCO3 ABG 43.7 mmol/L (22-26); HGB O2 Sat 92.1 % (95-100); Methemoglobin 0.4 % (0.4-1.5); Total Hemoglobin 17.4 g/dL (14-18)
[2022-08-02 22:47] LABS: ABG PCO2 79.5 mmHg (35-45); Blood Gas Sample Site Radial, left; Oxygen Device BIPAP
[2022-08-02 22:55] VITALS: PULSE 68; RESP 22; O2SAT 99
--- NOTE | 2022-08-02 22:55 | PC.NURSE ---
This nurse called and RT to inform them pt was not saturating well on the nasal cannula and that their lungs sounded wet to auscultation. An ABG has been drawn and pt placed on bipap by respiratory.
[2022-08-02 23:04] VITALS: PULSE 82
[2022-08-03] VITALS (18 sets, daily range): BP systolic 128–153; BP diastolic 69–85; PULSE 66–85; RESP 12–22; TEMP 36.4–37; O2SAT 92–96; BMI 63.3
[2022-08-03] MEDS: levofloxacin-dextrose 5 % 750 MG/150 ML PREMIX 100 MG IV (01:06)
--- NOTE | 2022-08-03 04:40 | PC.NURSE ---
[facility] at 0430.
[2022-08-03 05:26] LABS: Basophils # 0.1 10^3/uL (0.0-0.1); Basophils % 0.6 %; Eosinophils # 0.3 10^3/uL (0.0-0.8); Eosinophils % 2.4 %; Hemoglobin 16.2 g/dL (11.7-16.6); Lymphocytes # 1.5 10^3/uL (0.8-4.8); Lymphocytes % 13.7 %; Mean Corpuscular HGB Conc 29.5 g/dL (30.0-36.0); Mean Corpuscular Hemoglobin 29.3 pg (28.0-34.0); Mean Corpuscular Volume 99.6 fl (80-94); Monocytes # 0.9 10^3/uL (0.2-0.9); Monocytes % 8.2 %; Neutrophils # 8.06 10^3/uL (1.8-7.7); Neutrophils % 74.5 %; Nucleated Red Blood Cells % 0 %; Platelet Count 279 10^3/cmm (130-400); Red Blood Count 5.52 10^6/uL (4.1-5.3); Red Cell Distribution Width 18.6 % (12.1-15.1); White Blood Count 10.8 10^3/uL (4.0-10.0)
[2022-08-03 07:04] LABS: Alanine Aminotransferase 15 U/L (0-41); Albumin Level 3.1 g/dL (3.5-5.2); Alkaline Phosphatase 133 U/L (40-130); Anion Gap 10.7 (5-19); Aspartate Amino Transferase 24 U/L (0-40); Blood Urea Nitrogen 11 mg/dL (6-20); Calcium 9.1 mg/dL (8.5-10.5); Carbon Dioxide 39 mmol/L (22-29); Chloride 94 mmol/L (98-107); Globulin 3.8 g/dL (1.3-4.6); Glomerular Filtration Rate 126.9 mL/min (90-130); Glucose 122 mg/dL (65-115); Magnesium 1.6 mg/dL (1.7-2.3); Osmolality Calculated 291 mOsm/kg (285-295); Potassium 3.7 mmol/L (3.5-5.1); Sodium 140 mmol/L (136-145); Total Bilirubin 0.9 mg/dL (0.15-1.2); Total Protein 6.9 g/dL (6.6-8.7)
[2022-08-03 07:07] LABS: Glucose Point of Care 122 mg/dL (70-110)
[2022-08-03] MEDS: pneumococcal (23 valent) SDV 0.5 mL IM (10:31)
[2022-08-03] MEDS: metOLazone 5 MG Tablet 2.5 MG PO (10:34)
[2022-08-03] MEDS: warfarin 3 mg Tablet 6 MG PO ×2 (10:35→17:54)
[2022-08-03] MEDS: potassium chloride ER 20 mEq Tablet 40 MEQ PO ×2 (10:37→17:54)
[2022-08-03] MEDS: FUROsemide 10 mg/mL SDV 10mL 60 MG IVP ×3 (10:38→20:34)
--- NOTE | 2022-08-03 10:55 | PC.CHAP ---
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 piece worker visit [] Patient/Family/Request visit [] Outpatient visit [] Follow-up visit [] Physician referral [] Code/Alert [x] Routine visit [] Staff referral [] Actively dying [] Patient sleeping [] Family support [] [] Out of room [] Palliative care [] [x] Receiving care in room [] Pre-surgical visit [] Trauma [] Long length of stay [] ICU visit [] Other: Relational/Emotional Strength [] Patient feels connected with others/family/visitors/staff [] Distress [] Loneliness/isolation [] Abandonment Spirituality of Patient [] Person of Mary Lou [] Attends Sabianism of their Mary Lou [] Believes in Prayer [] Reads Bible or Gnosticist materials [] There are Spiritual issues to be addressed Director Of Design Interventions [x] Prayer [] Active listening [] Non-anxious presence [] Spiritual/emotional support [] Crisis/trauma care [] Spiritual counseling [] Bereavement support [] Provided bereavement packet [] Provided Bible/devotional materials [] Provided toy/stuffed animal, coloring book to patient or family member [] Provided Communion [] Anointing/[place] [] Salvation [] Completed spiritual assessment [] Other: Impact on Illness or Injury [] Angry [] Fearful [] Anxious [] Often cries [] Exhaustion [] Unable to work [] Unable to attend islam [] Unable to walk/stand [] Unable to read [] Unable to drive [] Unable to eat/drink [] Unable to sleep [] Unable to be with family [] Patient intubated [] Other: Summary Time spent with patient
--- NOTE | 2022-08-03 17:21 | PM.PN ---
Subjective Subjective: Since his lowNo acute interim complaints. Currently on BiPAP. States his breathing is improving compared to last night. Medications: Reviewed: Yes Vitals/I&O/Wt Last Vital Signs Temp 97.5 F L 08/03/22 16:00 Pulse 69 08/03/22 16:00 Resp 16 08/03/22 16:00 BP 130/85 08/03/22 16:00 Pulse Ox 96 08/03/22 16:00 O2 Del Method 08/03/22 16:00 O2 Flow Rate 5 08/03/22 11:59 FiO2 45 08/03/22 15:00 08/03/22 08/03/22 08/03/22 06:59 14:59 22:59 Intake Total 200 / 500 240 / 240 Output Total 750 / 750 1925 / 1925 Balance -550 / -250 -1685 / -1685 Weight last 48 hrs Weight 217.724 kg Weight 217.724 kg Physical Exam Narrative: Significantly obese man lying in bed in no acute distress, currently on BiPAP HEENT: PERRLA, pupils bilaterally equal and reactive, pallors not present Chest: Normal vesicular breath sounds, no added sounds, equal good air entry bilaterally CVS: S1-S2 regular, no murmurs, no tachycardia, no gallops, no rubs Abdomen: Soft, nontender, no organomegaly, bowel sounds present Neuro: No focal deficits, no facial deformity, AO x3, power 5/5 in all limbs Extremities: Lower extremity pitting edema with changes of stasis dermatitis Data 08/03/22 04:58 08/03/22 06:29 Micro: Microbiology 08/02/22 17:57 Blood Culture - Preliminary Blood SPECIMEN COLLECTED 08/02/22 17:43 Blood Culture - Preliminary Blood SPECIMEN COLLECTED A&P Assessment and plan (1) Congestive heart failure: (2) Cellulitis: (3) BMI 60.0-69.9, adult: (4) Scrotal edema: (5) Pulmonary emboli: (6) Deep vein thrombosis: (7) Warfarin anticoagulation: (8) Obesity hypoventilation syndrome: (9) Obstructive sleep apnea: (10) Morbid obesity: (11) Respiratory failure with hypoxia and hypercapnia: Plan 36 year old male with past medical history of morbid obesity, DVT PE, on warfarin, morbid obesity, came in today with chief complaint of 30 pound weight gain and associated swelling of his abdominal wall, scrotum and bilateral lower extremities.?He states 1 week ago, he had felt a nodule on the left side of his scrotum.? He squeezed to that area and bright red blood drained from that region.? Since that time, he has developed swelling of the pubic region, lower abdominal wall and both lower extremities.? He had a 30 pound weight gain over the last week. Lately patient has also started experiencing increasing worsening shortness of breath orthopnea and PND. Assessment: Decompensated heart failure with preserved ejection fraction as well as RV failure: Continue Lasix 60 IV TID Intake output charting Monitor daily weight Monitor electrolytes Continue telemetry monitoring Fluid restriction to 1500 cc/day Respiratory failure with hypoxia and hypercapnia: Multifactorial secondary to decompensated heart failure, СВЕТЛАНА/ OHS ABG: pH 7.35, PCO2 79, PO2 121, FiO2 40%. Continue BiPAP ventilation at night and as needed DuoNebs Supplemental oxygen as needed Bilateral lower extremity cellulitis: This is now excluded. Changes are more likely to be of stasis dermatitis. I will discontinue antibiotics History of DVT PE: On warfarin, INR within range at 2.2 CODE STATUS: Full code DVT prophylaxis: Appropriately covered with warfarin Attestations Medical Necessity Statement*: Needs ongoing admission for IV diuresis in view of CHF, close monitoring of urine output and renal function, BiPAP ventilation Coding Level of Care Code Acute Code for Chg Fwd Diagnoses Congestive heart failure I50.9 Cellulitis L03.90 BMI 60.0-69.9, adult Z68.44 Scrotal edema N50.89 Pulmonary emboli I26.99 Deep vein thrombosis I82.409 Warfarin anticoagulation Z79.01 Obesity hypoventilation syndrome E66.2 Obstructive sleep apnea G47.33 Morbid obesity E66.01 Respiratory failure with hypoxia and hypercapnia J96.91; J96.92
[2022-08-03] MEDS: ipratropium-albuterol 3 mL Neb INHALATION (19:57)
[2022-08-03] MEDS: acetaminophen 325 mg Tablet 650 MG PO (20:24)
[2022-08-04] VITALS (14 sets, daily range): BP systolic 126–143; BP diastolic 67–80; PULSE 69–95; RESP 16–19; TEMP 36.6–37.1; O2SAT 88–97
[2022-08-04 05:01] LABS: Basophils # 0.1 10^3/uL (0.0-0.1); Basophils % 0.6 %; Eosinophils # 0.2 10^3/uL (0.0-0.8); Eosinophils % 2.2 %; Hematocrit 55.5 % (42.0-52.0); Hemoglobin 16.4 g/dL (11.7-16.6); Lymphocytes # 1.4 10^3/uL (0.8-4.8); Lymphocytes % 12.7 %; Mean Corpuscular HGB Conc 29.5 g/dL (30.0-36.0); Mean Corpuscular Hemoglobin 29.3 pg (28.0-34.0); Mean Corpuscular Volume 99.1 fl (80-94); Monocytes # 0.8 10^3/uL (0.2-0.9); Monocytes % 7.2 %; Neutrophils # 8.21 10^3/uL (1.8-7.7); Neutrophils % 76.9 %; Nucleated Red Blood Cells % 0 %; Platelet Count 285 10^3/cmm (130-400); Red Cell Distribution Width 17.9 % (12.1-15.1); White Blood Count 10.7 10^3/uL (4.0-10.0)
[2022-08-04 05:18] LABS: Alanine Aminotransferase 13 U/L (0-41); Albumin Level 2.9 g/dL (3.5-5.2); Alkaline Phosphatase 122 U/L (40-130); Anion Gap 9.2 (5-19); Aspartate Amino Transferase 19 U/L (0-40); Blood Urea Nitrogen 9 mg/dL (6-20); Calcium 9.1 mg/dL (8.5-10.5); Chloride 89 mmol/L (98-107); Globulin 3.9 g/dL (1.3-4.6); Glomerular Filtration Rate 126.9 mL/min (90-130); Glucose 106 mg/dL (65-115); Osmolality Calculated 287 mOsm/kg (285-295); Potassium 3.2 mmol/L (3.5-5.1); Sodium 139 mmol/L (136-145); Total Protein 6.8 g/dL (6.6-8.7)
[2022-08-04 05:41] LABS: Carbon Dioxide 44 mmol/L (22-29)
[2022-08-04] MEDS: ipratropium-albuterol 3 mL Neb INHALATION ×4 (07:32→19:47)
[2022-08-04] MEDS: FUROsemide 10 mg/mL SDV 10mL 60 MG IVP ×2 (08:53→17:27)
[2022-08-04] MEDS: metOLazone 5 MG Tablet 2.5 MG PO (09:10)
[2022-08-04] MEDS: potassium chloride ER 20 mEq Tablet 40 MEQ PO ×2 (09:10→17:38)
[2022-08-04] MEDS: warfarin 3 mg Tablet 6 MG PO ×2 (11:30→17:38)
[2022-08-04 11:59] LABS: INR 1.66 (0.8-1.2)
--- NOTE | 2022-08-04 15:08 | PM.PN ---
Subjective Subjective: Net -8.6 L since admission. INR at 1.6 today. HCo3 increased to 44 today. States his breathing is better. Medications: Reviewed: Yes Vitals/I&O/Wt Last Vital Signs Temp 98.8 F 08/04/22 12:00 Pulse 81 08/04/22 12:00 Resp 17 08/04/22 12:00 BP 140/75 08/04/22 12:00 Pulse Ox 97 08/04/22 12:00 O2 Del Method 08/04/22 11:26 O2 Flow Rate 6 08/04/22 11:26 FiO2 5 08/04/22 07:33 08/04/22 08/04/22 08/04/22 06:59 14:59 22:59 Intake Total 240 / 720 360 / 360 Output Total 1350 / 6875 2650 / 2650 Balance -1110 / -6155 -2290 / -2290 Weight last 48 hrs Weight 211.487 kg Weight 217.724 kg Weight 217.724 kg Physical Exam Narrative: General: No acute distress, AO x3 HEENT: PERRLA, pupils bilaterally equal and reactive, pallors not present Chest: Normal vesicular breath sounds, no added sounds, equal good air entry bilaterally CVS: S1-S2 regular, no murmurs, no tachycardia, no gallops, no rubs Abdomen: Soft, nontender, no organomegaly, bowel sounds present Neuro: No focal deficits, no facial deformity, AO x3, power 5/5 in all limbs Data 08/04/22 04:40 08/04/22 04:40 Micro: Microbiology 08/02/22 17:57 Blood Culture - Preliminary Blood NEGATIVE TO DATE 08/02/22 17:43 Blood Culture - Preliminary Blood NEGATIVE TO DATE A&P Assessment and plan (1) Congestive heart failure: (2) Cellulitis: (3) BMI 60.0-69.9, adult: (4) Scrotal edema: (5) Pulmonary emboli: (6) Deep vein thrombosis: (7) Warfarin anticoagulation: (8) Obesity hypoventilation syndrome: (9) Obstructive sleep apnea: (10) Morbid obesity: (11) Respiratory failure with hypoxia and hypercapnia: Plan 36 year old male with past medical history of morbid obesity, DVT PE, on warfarin, morbid obesity, came in today with chief complaint of 30 pound weight gain and associated swelling of his abdominal wall, scrotum and bilateral lower extremities.?He states 1 week ago, he had felt a nodule on the left side of his scrotum.? He squeezed to that area and bright red blood drained from that region.? Since that time, he has developed swelling of the pubic region, lower abdominal wall and both lower extremities.? He had a 30 pound weight gain over the last week. Lately patient has also started experiencing increasing worsening shortness of breath orthopnea and PND. Assessment: Decompensated heart failure with preserved ejection fraction as well as RV failure Net negative 8L since admission Reduce Lasix 60 IV BID today Hold metolazone developing metabolic alkalosis, acetazolamide 250 mg x 1 today Intake output charting Monitor daily weight Monitor electrolytes Continue telemetry monitoring Fluid restriction to 1500 cc/day Respiratory failure with hypoxia and hypercapnia: Multifactorial secondary to decompensated heart failure, Improving СВЕТЛАНА/ OHS ABG: pH 7.35, PCO2 79, PO2 121, FiO2 40%. Continue BiPAP ventilation at night and as needed DuoNebs Supplemental oxygen as needed Bilateral lower extremity cellulitis: This is now excluded. Changes are more likely to be of stasis dermatitis. History of DVT PE: On warfarin, INR today at 1.6. Pharmacy consult for Warfarin dosing CODE STATUS: Full code DVT prophylaxis: Appropriately covered with warfarin Attestations Medical Necessity Statement*: ongoing need for iv diuresis, monitoring urine output, renal function Coding Level of Care Code Acute Code for Chg Fwd Diagnoses Congestive heart failure I50.9 Cellulitis L03.90 BMI 60.0-69.9, adult Z68.44 Scrotal edema N50.89 Pulmonary emboli I26.99 Deep vein thrombosis I82.409 Warfarin anticoagulation Z79.01 Obesity hypoventilation syndrome E66.2 Obstructive sleep apnea G47.33 Morbid obesity E66.01 Respiratory failure with hypoxia and hypercapnia J96.91; J96.92
[2022-08-04] MEDS: acetaZOLAMIDE 250 mg Tablet PO (17:39)
[2022-08-05] VITALS (9 sets, daily range): BP systolic 121–144; BP diastolic 72–76; PULSE 69–82; RESP 16–19; TEMP 36.4–37.1; O2SAT 85–94
[2022-08-05] MEDS: acetaminophen 325 mg Tablet 650 MG PO (00:06)
[2022-08-05] MEDS: potassium chloride ER 20 mEq Tablet 80 MEQ PO (01:20)
[2022-08-05 01:33] LABS: Basophils # 0.1 10^3/uL (0.0-0.1); Basophils % 0.6 %; Eosinophils # 0.2 10^3/uL (0.0-0.8); Eosinophils % 1.4 %; Hematocrit 55.8 % (42.0-52.0); Hemoglobin 16.7 g/dL (11.7-16.6); Lymphocytes # 1.5 10^3/uL (0.8-4.8); Lymphocytes % 11.5 %; Mean Corpuscular HGB Conc 29.9 g/dL (30.0-36.0); Mean Corpuscular Hemoglobin 29.3 pg (28.0-34.0); Mean Corpuscular Volume 98.1 fl (80-94); Mean Platelet Volume 10.9 fL (7.4-10.4); Monocytes # 0.9 10^3/uL (0.2-0.9); Monocytes % 6.8 %; Neutrophils # 10.19 10^3/uL (1.8-7.7); Neutrophils % 78.9 %; Nucleated Red Blood Cells % 0 %; Platelet Count 302 10^3/cmm (130-400); Red Blood Count 5.69 10^6/uL (4.1-5.3); Red Cell Distribution Width 18.2 % (12.1-15.1); White Blood Count 12.9 10^3/uL (4.0-10.0)
[2022-08-05 01:47] LABS: Alanine Aminotransferase 13 U/L (0-41); Albumin Level 3.1 g/dL (3.5-5.2); Alkaline Phosphatase 129 U/L (40-130); Aspartate Amino Transferase 22 U/L (0-40); Blood Urea Nitrogen 13 mg/dL (6-20); Calcium 9.5 mg/dL (8.5-10.5); Carbon Dioxide 39 mmol/L (22-29); Chloride 89 mmol/L (98-107); Globulin 4.3 g/dL (1.3-4.6); Glomerular Filtration Rate 108.8 mL/min (90-130); Glucose 146 mg/dL (65-115); Osmolality Calculated 289 mOsm/kg (285-295); Sodium 138 mmol/L (136-145); Total Bilirubin 0.8 mg/dL (0.15-1.2); Total Protein 7.4 g/dL (6.6-8.7)
[2022-08-05 02:06] LABS: Anion Gap 13.2 (5-19); Potassium 3.2 mmol/L (3.5-5.1)
[2022-08-05 04:23] LABS: INR 1.69 (0.8-1.2)
[2022-08-05] MEDS: ipratropium-albuterol 3 mL Neb INHALATION ×2 (08:15→11:12)
[2022-08-05] MEDS: potassium chloride ER 20 mEq Tablet 40 MEQ PO ×2 (08:55→14:07)
[2022-08-05] MEDS: FUROsemide 10 mg/mL SDV 10mL 60 MG IVP (08:57)
--- NOTE | 2022-08-05 13:38 | P.DS_ITS ---
Discharge Providers Date of Admission: 08/02/22 19:39 Date of Discharge: August 05, 2022 Attending Provider at Admission: Roshan López MD Attending Provider at Discharge: Ana M Arteaga MD Primary Care Provider: AIRAM Wilson Diagnoses at Discharge Discharge Diagnosis (1) Congestive heart failure: Status: Acute (2) Cellulitis: Status: Acute (3) BMI 60.0-69.9, adult: Status: Acute (4) Scrotal edema: Status: Acute (5) Pulmonary emboli: Status: Acute (6) Deep vein thrombosis: Status: Acute (7) Warfarin anticoagulation: Status: Acute (8) Obesity hypoventilation syndrome: Status: Acute (9) Obstructive sleep apnea: Status: Acute (10) Morbid obesity: Status: Acute (11) Respiratory failure with hypoxia and hypercapnia: Status: Acute Reason for Visit Reason for Visit: body swelling Hospital Course Hospital Course Cj Conrad is a 36 year old male with past medical history of morbid obesity, DVT PE, on warfarin, morbid obesity, known heart failure came in with chief complaint of 30 pound weight gain and associated swelling of his abdominal wall, scrotum and bilateral lower extremities. Lately patient has also started experiencing increasing worsening shortness of breath orthopnea and PND. He was admitted for the management of Decompensated heart failure with preserved ejection fraction as well as RV failure. He was treated with IV Lasix and p.o. metolazone during the course of his admission here. He is being transitioned to p.o. Bumex at the time of discharge. He had evidence of respiratory failure with hypoxia and hypercapnia likely to be multifactorial related to decompensated heart failure and obesity hypoventilation syndrome. Patient needed BiPAP during the course of his admission here. He had a sleep study with titration scheduled on September 24 and is encouraged to be compliant with the same. He had evidence of bilateral lower extremity edema and stasis dermatitis. No signs of cellulitis were seen. Antibiotics were continued for about 24 hours and then discontinued. Lower extremity edema is significantly improving at the time of discharge. He is eager to return home. Home oxygen evaluation was completed prior to discharge. He was seen by cardiology in jul 2022, and is recommended to follow up in one week. Physical Exam Narrative: General: No acute distress, AO x3 HEENT: PERRLA, pupils bilaterally equal and reactive, pallors not present Chest: Normal vesicular breath sounds, no added sounds, equal good air entry bilaterally CVS: S1-S2 regular, no murmurs, no tachycardia, no gallops, no rubs Abdomen: Soft, nontender, no organomegaly, bowel sounds present Neuro: No focal deficits, no facial deformity, AO x3, power 5/5 in all limbs Extremities: improving B/L LE edema. Discharge Data Studies Completed and Pending Completed Studies During Hospitalization Category Date Time Status XR chest 1V portable [id number] Stat Exams 08/02/22 17:23 Completed Pending at discharge Category Date Time Status Blood Culture Stat Lab 08/02/22 17:57 Results Prothrombin Time INR AM LABS Lab 08/06/22 04:00 Ordered Prothrombin Time INR AM LABS Lab 08/07/22 04:00 Ordered Radiology Impressions Chest X-Ray 08/02/22 17:23 IMPRESSION: No acute infiltrate. Laboratory Results WBC 12.9 10^3/uL (4.0-10.0) H 08/05/22 01:00 RBC 5.69 10^6/uL (4.1-5.3) H 08/05/22 01:00 Hgb 16.7 g/dL (11.7-16.6) H 08/05/22 01:00 Hct 55.8 % (42.0-52.0) H 08/05/22 01:00 MCV 98.1 fl (80-94) H 08/05/22 01:00 MCH 29.3 pg (28.0-34.0) 08/05/22 01:00 MCHC 29.9 g/dL (30.0-36.0) L 08/05/22 01:00 RDW 18.2 % (12.1-15.1) H 08/05/22 01:00 Plt Count 302 10^3/cmm (130-400) 08/05/22 01:00 MPV 10.9 fL (7.4-10.4) H 08/05/22 01:00 Neut % (Auto) 78.9 % 08/05/22 01:00 Lymph % (Auto) 11.5 % 08/05/22 01:00 [place] % (Auto) 6.8 % 08/05/22 01:00 Eos % (Auto) 1.4 % 08/05/22 01:00 Baso % (Auto) 0.6 % 08/05/22 01:00 Neut # (Auto) 10.19 10^3/uL (1.8-7.7) H 08/05/22 01:00 Lymph # (Auto) 1.5 10^3/uL (0.8-4.8) 08/05/22 01:00 [place] # (Auto) 0.9 10^3/uL (0.2-0.9) 08/05/22 01:00 Eos # (Auto) 0.2 10^3/uL (0.0-0.8) 08/05/22 01:00 Baso # (Auto) 0.1 10^3/uL (0.0-0.1) 08/05/22 01:00 Nucleated RBC % (auto) 0 % 08/05/22 01:00 Nucleated RBCs # 0.0 /100WBC 08/05/22 01:00 PT 20.20 SECONDS (12.1-14.9) H 08/05/22 01:00 INR 1.69 (0.8-1.2) H 08/05/22 01:00 Specimen Type Arterial 08/02/22 22:35 Sample Site Radial, left 08/02/22 22:35 ABG pH 7.35 (7.35-7.45) 08/02/22 22:35 ABG pCO2 79.5 mmHg (35-45) H* 08/02/22 22:35 ABG pO2 121.0 mmHg (80.0-100.0) H 08/02/22 22:35 ABG HCO3 43.7 mmol/L (22-26) H 08/02/22 22:35 ABG Base Excess 13.0 mmol/L (-2.0-2.0) H 08/02/22 22:35 Ilan Test Pos 08/02/22 22:35 Hematocrit 53.2 % (42-52) H 08/02/22 22:35 Hgb O2 Saturation 92.1 % (95-100) L 08/02/22 22:35 Carboxyhemoglobin 5.3 %THgb (0.4-20.1) 08/02/22 22:35 Methemoglobin 0.4 % (0.4-1.5) 08/02/22 22:35 Total Hemoglobin 17.4 g/dL (14-18) 08/02/22 22:35 O2 Delivery Device Bipap 08/02/22 22:35 FiO2 40.0 % 08/02/22 22:35 PEEP 8.0 cmH20 08/02/22 22:35 Fruit Or Nut Grower ID [email or web address] 08/02/22 22:35 Sodium 138 mmol/L (136-145) 08/05/22 01:00 Potassium 3.2 mmol/L (3.5-5.1) L 08/05/22 01:00 Chloride 89 mmol/L (98-107) L 08/05/22 01:00 Carbon Dioxide 39 mmol/L (22-29) H 08/05/22 01:00 Anion Gap 13.2 (5-19) 08/05/22 01:00 BUN 13 mg/dL (6-20) 08/05/22 01:00 Creatinine 0.8 mg/dL (0.7-1.2) 08/05/22 01:00 GFR Calculation 108.8 mL/min (90-130) 08/05/22 01:00 Glucose 146 mg/dL (65-115) H 08/05/22 01:00 POC Glucose 122 mg/dL (70-110) H 08/02/22 17:47 Calculated Osmolality 289 mOsm/kg (285-295) 08/05/22 01:00 Lactate 1.7 mmol/L (0.5-2.2) 08/02/22 17:43 Calcium 9.5 mg/dL (8.5-10.5) 08/05/22 01:00 Magnesium 1.6 mg/dL (1.7-2.3) L 08/03/22 06:29 Total Bilirubin 0.8 mg/dL (0.15-1.2) 08/05/22 01:00 AST 22 U/L (0-40) 08/05/22 01:00 ALT 13 U/L (0-41) 08/05/22 01:00 Alkaline Phosphatase 129 U/L (40-130) 08/05/22 01:00 C-Reactive Protein 28.7 mg/L (0.0-4.9) H 08/02/22 17:43 NT-Pro-B Natriuret Pep 1769 pg/mL (0-125) H 08/02/22 17:43 Total Protein 7.4 g/dL (6.6-8.7) 08/05/22 01:00 Albumin 3.1 g/dL (3.5-5.2) L 08/05/22 01:00 Globulin 4.3 g/dL (1.3-4.6) 08/05/22 01:00 Coronavirus 229E (PCR) Cancelled 08/02/22 17:43 SARS-CoV-2 (PCR) Cancelled 08/02/22 17:43 SARS-CoV-2 Ag (Rapid) Negative (Negative) 08/02/22 17:43 Vitals Last Vital Signs Temp 97.9 F 08/05/22 07:56 Pulse 77 08/05/22 11:12 Resp 18 08/05/22 11:12 BP 121/75 08/05/22 07:56 Pulse Ox 94 08/05/22 11:12 O2 Del Method 08/05/22 11:12 O2 Flow Rate 5 08/05/22 11:12 FiO2 5 08/04/22 07:33 Discharge Plan Discharge Patient Disposition: Home Condition: Stable Prescriptions: New bumetanide 2 mg tablet 2 mg PO BID 30 Days Qty: 60 0RF Continued albuterol sulfate [ProAir HFA] 90 mcg/actuation HFA aerosol inhaler 2 puff inhalation 6XD PRN (Reason: shortness of breath or wheezing) 30 Days Qty: 8.5 3RF warfarin [Jantoven] 6 mg tablet 6 mg PO BID Protocol: Dose Management Condition: Saturday Dose/Route: 12 mg Instruction: 2 x 6 mg tablets Condition: Saturday Dose/Route: 12 mg Instruction: 2 x 6 mg tablets Condition: Saturday Dose/Route: 12 mg Instruction: 2 x 6 mg tablets Condition: Saturday Dose/Route: 12 mg Instruction: 2 x 6 mg tablets Condition: Dose/Route: 12 mg Instruction: 2 x 6 mg tablets Condition: Saturday Dose/Route: 12 mg Instruction: 2 x 6 mg tablets Condition: Saturday Dose/Route: 12 mg Instruction: 2 x 6 mg tablets Protocol Text: Adjustment Start Date: 08/02/22 INR Value: Not Reportable INR Date: 08/02/22 Recheck Date: 08/16/22 potassium chloride 20 mEq tablet extended release 40 meq PO BID metolazone 5 mg tablet 2.5 mg PO DAILY Qty: 45 1RF Discontinued furosemide 80 mg tablet 80 mg PO BID Qty: 60 2RF Rx Instructions: MUST have follow-up for further refills Discharge Orders: Discharge Order (Routine); Ordered 08/05/22 Ordered By: Ana M Arteaga Referrals: Paresh Smith FNP [Primary Care Provider] - 2 weeks Karin Byers FNP [Nurse Practitioner] - 1 week (hospital discharge follow up ffor CHF ) Discharge Diet: Cardiac Discharge Activity: Resume usual activity and Increase activity as tolerated Patient Instructions: Opioid Safety Discharge Attestations Time Spent in Discharge Care*: greater than 30 min Status at Discharge: Cognitive status at discharge: cognitively intact , Behavioral status at discharge: cooperative , Quality Metrics Clinical Quality Measures [ No reported AMI, CVA or VTE this stay] Coding Level of Care Code Acute Code for Chg Fwd Diagnoses Congestive heart failure I50.9 Cellulitis L03.90 BMI 60.0-69.9, adult Z68.44 Scrotal edema N50.89 Pulmonary emboli I26.99 Deep vein thrombosis I82.409 Warfarin anticoagulation Z79.01 Obesity hypoventilation syndrome E66.2 Obstructive sleep apnea G47.33 Morbid obesity E66.01 Respiratory failure with hypoxia and hypercapnia J96.91; J96.92
--- NOTE | 2022-08-05 14:36 | PC.NURSE ---
Patient is waiting for HOME to deliver oxygen and then he will be discharged home.
== END 2022-08-05 16:47 | disposition home or self-care (01) | DRG 291 ==
LOC: ER 20:28 → MEDSURG 20:30
PROVIDERS: Admitting Provider Internal Medicine; Emergency Provider Emergency Medicine; PCP Nurse Practitioner; Visit Provider Student in an Organized Health Care Education/Training Program
DX: I11.0 Hypertensive heart disease with heart failure (principal); I50.33 Acute on chronic diastolic (congestive) heart failure; J96.92 Respiratory failure, unspecified with hypercapnia; J96.91 Respiratory failure, unspecified with hypoxia; E66.2 Morbid (severe) obesity with alveolar hypoventilation; Z68.44 Body mass index [BMI] 60.0-69.9, adult; Z79.51 Long term (current) use of inhaled steroids; Z79.01 Long term (current) use of anticoagulants; Z86.718 Personal history of other venous thrombosis and embolism; Z86.711 Personal history of pulmonary embolism; J44.9 Chronic obstructive pulmonary disease, unspecified; I50.810 Right heart failure, unspecified
CPT/HCPCS: 36415; 36416; 36600; 71045; 80053; 80061; 82805; 82962; 83605; 83735; 83880; 84443; 85025; 85610; 86140; 87040; 87426; 87635; 90471; 90732; 94640; 94660; 94760; 96374; 96375; 99285; J1940; J1956; J3370; J3475; J3490

== ENCOUNTER → 2022-08-10 14:58 | Outpatient (BNVA) | payer MEDICAID, SELFPAY | PROVIDERS: PCP Nurse Practitioner Family; Visit Provider Nurse Practitioner Family | DX: Z79.01 Long term (current) use of anticoagulants (principal) | CPT/HCPCS: 85610 ==

== ENCOUNTER → 2022-08-21 12:31 | Outpatient (BNVA) | payer MEDICAID, SELFPAY | PROVIDERS: PCP Nurse Practitioner Family; Visit Provider Nurse Practitioner Family | DX: I50.9 Heart failure, unspecified (principal) | CPT/HCPCS: 36415; 80048; 83880 ==

== ENCOUNTER 2022-09-24 20:00 | Outpatient (CLI) | payer MEDICAID, SELFPAY | END 2022-09-24 20:01 | disposition home or self-care (01) | LOC: SLEEP 09-25 04:43 | PROVIDERS: PCP Nurse Practitioner Family; Visit Provider Internal Medicine Pulmonary Disease | DX: G47.33 Obstructive sleep apnea (adult) (pediatric) (principal) | CPT/HCPCS: 95811 ==

== ENCOUNTER → 2022-10-24 14:06 | Outpatient (BNVA) | payer MEDICAID, SELFPAY | PROVIDERS: PCP Nurse Practitioner Family; Visit Provider Internal Medicine Cardiovascular Disease | DX: I26.99 Other pulmonary embolism without acute cor pulmonale (principal); I82.409 Acute embolism and thrombosis of unspecified deep veins of unspecified lower extremity; Z79.01 Long term (current) use of anticoagulants | CPT/HCPCS: 85610 ==

== ENCOUNTER 2022-12-03 08:46 | Inpatient (IN) | payer MEDICAID, SELFPAY ==
[2022-12-03] VITALS (169 sets, daily range): BP systolic 104–175; BP diastolic 57–125; PULSE 50–92; RESP 14–26; TEMP 36.5–36.7; O2SAT 88–100
--- NOTE | 2022-12-03 09:11 | ED_ITS ---
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 He states over the past several days he has been swollen as he points to his abdomen and feels very short of breath. Unknown how much weight he has gained over the past few days. States he has home oxygen that he wears as needed but states he has had to wear continuously over the past several days. States his lower extremities and abdomen are red/warm and they often get like this when I swell . Patient was satting 85% on room air upon arrival. Last echo done in 2020 with results below: ?CONCLUSIONS ?1.? This is a limited study with ultrasound enhancing agent. ?2.? Normal left ventricular cavity size and systolic function. ?Left ventricular ejection fraction is estimated at 70 %. No ?regional wall motion abnormalities. Abnormal septal motion. ?3. Dilated right ventricle with decreased right ventricular ?systolic function. ? MD elicited complaint: shortness of breath Pertinent past history: COPD and congestive heart failure Timing: constant Severity: severe Exacerbating factors: lying flat and exertion Relieving factors: nothing Known history of: COPD and congestive heart failure Associated symptoms: Reports orthopnea; Deny abdominal pain, chest congestion, chest pain, fever(s), hemoptysis, lightheadedness, nausea, palpitations, syncope or vomiting Treatment prior to arrival: none Related Data: Home oxygen amount: 2 liters Review of Systems Const: Denies: fever(s), chills, body aches, fatigue or malaise Card: Reports: edema, swelling of feet/ankles, dyspnea on exertion and orthopnea; Denies: chest pain, palpitations, irregular heart rhythm, lightheadedness, syncope, pre-syncope, leg pain with exertion or acrocyanosis Resp: Reports: dyspnea; Denies: wheezing, change in phlegm color, hemoptysis or chest congestion GI: Denies: abdominal pain, nausea, vomiting or diarrhea : Denies: flank pain or dysuria Musc: Reports: extremity swelling; Denies: neck pain or back pain Neuro: Denies: headache(s), numbness in extremities, weakness in extremities or sensory changes FOR[facility]LY [facility], [facility] ED PFSH: Medical History Acute respiratory failure with hypoxia BMI 50.0-59.9, adult CHF exacerbation Deep vein thrombosis Hypertension Morbid obesity Obesity hypoventilation syndrome Obstructive sleep apnea Proteinuria Pulmonary emboli Smoker Warfarin anticoagulation Surgical History No history of previous surgery Family History Sister Brain aneurysm Mother History of multiple strokes Chronic kidney disease on chronic dialysis Grandmother CAD (coronary artery disease) Other Diabetes Stroke Social History Second hand smoke exposure: No Smoking risk assessment/counseling performed?: Yes Alcohol intake: never Counseling given: No Substance/Drug Use: never Counseling given: No Lives independently: Yes Housing: House Do you think of yourself as: Straight/Heterosexual Current gender identity: Male Physical Exam Const: COMMON NORMALS: patient oriented x3, no limitations and alert GENERAL APPEARANCE: cooperative ORIENTATION/CONSCIOUSNESS: Yes awake, Yes oriented to person, Yes oriented to place and Yes oriented to time OTHER: patient is morbidly obese with a weight over 450 lbs HENMT: COMMON NORMALS: normocephalic and atraumatic HEAD & SCALP: normal to inspection, normocephalic and atraumatic Eye: GENERAL EYE: appearance normal, both eyes and all related structures Neck/C-Spine: COMMON NORMALS: full ROM and no JVD Chest: COMMONS NORMALS: normal inspection of the chest and normal palpation of entire chest wall Resp: EFFORT & INSPECTION: Yes respiratory distress (acute respiratory failure with hypoxia ) AUSCULTATION: wheezes Cardio: COMMON NORMALS: no JVD, regular rate and regular rhythm RATE: regular rate RHYTHM: regular rhythm GI: INSPECTION: Yes Anasarca AUSCULTATION: Yes normoactive bowel sounds PALPATION: No Tenderness to palpation present (GI), No Guarding due to palpation present (GI) and No Rigid due to palpation OTHER: diffuse abdominal swelling/edema/erythema Back/Pelvis: COMMON NORMALS: thoracic and lumbar spine normal to inspection, no thoracic nor lumbar tenderness and thoraco-lumbar ROM normal Extremity: NARRATIVE EXTREMITY EXAM: diffuse bilateral LE edema/blanching erythema GENERAL: Yes normal exam except as noted Neuro: LOUISA COMA SCALE: document GCS findings [place] coma scale eye opening: Spontaneous [place] coma scale verbal response: Orientated [place] coma scale motor response: Obey commands [place] coma scale total score: 15 COMMON NORMALS: patient oriented x3, moves all extremities, no focal motor deficits and no sensory deficits noted SENSORIUM/ORIENTATION: Yes alert, Yes oriented to person, Yes oriented to place and Yes oriented to time Course Vital Signs: Vital signs: Vital Signs Temperature 98.1 F 12/04/22 16:00 Pulse Rate 80 12/04/22 16:00 Respiratory Rate 20 H 12/04/22 16:00 Blood Pressure 143/85 12/04/22 16:00 Pulse Oximetry 97 12/04/22 16:00 Oxygen Delivery Me thod BiPAP 12/04/22 16:00 Oxygen Flow Rate 4 12/04/22 15:00 Fraction of Inspir ed Oxygen 50 12/04/22 16:00 MDM - SOB/Dyspnea Medical Decision Making Care will be transferred to Dr. Lowry as patient will be an admit. ES Lab Data 12/04/22 04:30 12/04/22 04:30 Labs/Radiology: Radiology Impressions Chest X-Ray 12/03/22 09:12 IMPRESSION: No acute cardiopulmonary abnormality. Ankle X-Ray 12/04/22 12:34 IMPRESSION: No acute bony abnormalities. Laboratory Results WBC 11.3 10^3/uL (4.0-10.0) H 12/03/22 09:22 RBC 6.03 10^6/uL (4.1-5.3) H 12/03/22 09:22 Hgb 17.0 g/dL (11.7-16.6) H 12/03/22 09:22 Hct 58.4 % (42.0-52.0) H 12/03/22 09:22 MCV 96.8 fl (80-94) H 12/03/22 09:22 MCH 28.2 pg (28.0-34.0) 12/03/22 09: MCHC 29.1 g/dL (30.0-36.0) L 12/03/22 09: RDW 18.3 % (12.1-15.1) H 12/03/22 09:22 Plt Count 320 10^3/cmm (130-400) 12/03/22 09:22 MPV 10.9 fL (7.4-10.4) H 12/03/22 09:22 Neut % (Auto) 77.9 % 12/03/22 09:22 Lymph % (Auto) 12.6 % 12/03/22 09:22 [place] % (Auto) 7.2 % 12/03/22 09:22 Eos % (Auto) 1.2 % 12/03/22 09: Baso % (Auto) 0.6 % 12/03/22 09: Neut # (Auto) 8.78 10^3/uL (1.8-7.7) H 12/03/22 09:22 Lymph # (Auto) 1.4 10^3/uL (0.8-4.8) 12/03/22 09:22 [place] # (Auto) 0.8 10^3/uL (0.2-0.9) 12/03/22 09:22 Eos # (Auto) 0.1 10^3/uL (0.0-0.8) 12/03/22 09: Baso # (Auto) 0.1 10^3/uL (0.0-0.1) 12/03/22 09: Nucleated RBC % (auto) 0 % 12/03/22 09: Nucleated RBCs # 0.0 /100WBC 12/03/22 09: PT 30.80 SECONDS (12.1-14.9) H 12/03/22 09:22 INR 2.83 (0.8-1.2) H 12/03/22 09:22 Specimen Type Arterial 12/03/22 10:46 Sample Site Radial, right 12/03/22 10:46 ABG pH 7.37 (7.35-7.45) 12/03/22 10:46 ABG pCO2 76.2 mmHg (35-45) H* 12/03/22 10:46 ABG pO2 87.6 mmHg (80.0-100.0) 12/03/22 10:46 ABG HCO3 44.5 mmol/L (22-26) H 12/03/22 10:46 ABG O2 Saturation 94.2 12/03/22 09:52 ABG Base Excess 14.4 mmol/L (-2.0-2.0) H 12/03/22 10:46 Ilan Test Pos 12/03/22 10:46 A-a O2 Gradient 9.7 mmHg (5-10) 12/03/22 09:52 Hematocrit 52.1 % (42-52) H 12/03/22 10:46 Hgb O2 Saturation 86.1 % (95-100) L 12/03/22 09:52 Carboxyhemoglobin 8.3 %THgb (0.4-20.1) 12/03/22 09:52 Methemoglobin 0.3 % (0.4-1.5) L 12/03/22 09:52 Total Hemoglobin 16.6 g/dL (14-18) 12/03/22 09:52 Sodium 137.0 mmol/L (131-143) 12/03/22 09:52 Potassium 3.3 mmol/L (3.5-5.0) L 12/03/22 09:52 Glucose 131.0 mg/dL (70-115) H 12/03/22 09:52 Ionized Calcium 1.2 mmol/L (1.1-1.4) 12/03/22 09:52 O2 Delivery Device Bipap 12/03/22 10:46 O2 Liters/Min 3.0 % 12/03/22 09:52 FiO2 50.0 % 12/03/22 10:46 Physicist Cryogenics ID [place]ro 12/03/22 10:46 Sodium 137 mmol/L (136-145) 12/03/22 09:22 Potassium 3.2 mmol/L (3.5-5.1) L 12/03/22 09:22 Chloride 89 mmol/L (98-107) L 12/03/22 09:22 Carbon Dioxide 39 mmol/L (22-29) H 12/03/22 09:22 Anion Gap 12.2 (5-19) 12/03/22 09:22 BUN 20 mg/dL (6-20) 12/03/22 09:22 Creatinine 1.2 mg/dL (0.7-1.2) 12/03/22 09:22 GFR Calculation 68.1 mL/min (90-130) L 12/03/22 09:22 Glucose 136 mg/dL (65-115) H 12/03/22 09:22 Estimat Average Glucose 166 12/03/22 09:22 Hemoglobin A1c 7.4 % (4.0-6.0) H 12/03/22 09:22 Calculated Osmolality 289 mOsm/kg (285-295) 12/03/22 09:22 Lactic Acid 2.0 mmol/L (0.5-2.2) 12/03/22 09:22 Uric Acid 12.2 mg/dL (3.4-7.0) H 12/03/22 04:30 Calcium 8.8 mg/dL (8.5-10.5) 12/03/22 09:22 Magnesium 1.5 mg/dL (1.7-2.3) L 12/03/22 09:22 Total Bilirubin 0.6 mg/dL (0.15-1.2) 12/03/22 09:22 AST 21 U/L (0-40) 12/03/22 09:22 ALT 15 U/L (0-41) 12/03/22 09:22 Alkaline Phosphatase 180 U/L (40-130) H 12/03/22 09:22 Troponin T Baseline 18 ng/L (0-15) H 12/03/22 09:22 Troponin T 120 Minute 17.01 ng/L (0-15) H 12/03/22 11:25 Delta Troponin T -0.99 ABS# (0-10) L 12/03/22 11:25 C-Reactive Protein 37.6 mg/L (0.0-4.9) H 12/03/22 09:22 NT-Pro-B Natriuret Pep 2136 pg/mL (0-125) H 12/03/22 09:22 Total Protein 6.7 g/dL (6.6-8.7) 12/03/22 09:22 Albumin 2.8 g/dL (3.5-5.2) L 12/03/22 09:22 Globulin 3.9 g/dL (1.3-4.6) 12/03/22 09:22 Discharge Plan Discharge Patient Disposition: Admitted As Inpatient Admit Provider: Srinivas Lunsford Clinical Impression: Respiratory failure with hypoxia and hypercapnia, CHF exacerbation, Obstructive sleep apnea, Deep vein thrombosis, Hypokalemia, Acute encephalopathy Condition: Stable Coding Level of Care Code ED Wallpaper Scraper for Billie Fwd Documented by User: Wes Lowry, 12/04/22 17:21 HPI - SOB/Dyspnea General: Chief Complaint: Shortness of Breath/Dyspnea Stated Complaint: Swelling, SOB Time Seen by Provider: 12/03/22 08:55 PFSH ED PFSH: Medical History Acute respiratory failure with hypoxia BMI 50.0-59.9, adult CHF exacerbation Deep vein thrombosis Hypertension Morbid obesity Obesity hypoventilation syndrome Obstructive sleep apnea Proteinuria Pulmonary emboli Smoker Warfarin anticoagulation Surgical History No history of previous surgery Family History Sister Brain aneurysm Mother History of multiple strokes Chronic kidney disease on chronic dialysis Grandmother CAD (coronary artery disease) Other Diabetes Stroke Social History Second hand smoke exposure: No Smoking risk assessment/counseling performed?: Yes Alcohol intake: never Counseling given: No Substance/Drug Use: never Counseling given: No Lives independently: Yes Housing: House Do you think of yourself as: Straight/Heterosexual Current gender identity: Male Physical Exam Neuro: LOUISA COMA SCALE: document GCS findings [place] coma scale total score: 15 Course Vital Signs: Vital signs: Vital Signs Temperature 98.1 F 12/04/22 16:00 Pulse Rate 80 12/04/22 16:00 Respiratory Rate 20 H 12/04/22 16:00 Blood Pressure 143/85 12/04/22 16:00 Pulse Oximetry 97 12/04/22 16:00 Oxygen Delivery Me thod BiPAP 12/04/22 16:00 Oxygen Flow Rate 4 12/04/22 15:00 Fraction of Inspir ed Oxygen 50 12/04/22 16:00 MDM - SOB/Dyspnea Medical Decision Making Care will be transferred to Dr. Lowry as patient will be an admit. ES Patient seen and evaluated. Patient has increased shortness of breath and oswaldo armijo appears to be in acute congestive heart failure. We have started diuresing. He is begun to have good output. Initially patient was seen by Rafia Mei when I went to see the patient he seemed more lethargic than what she had conveyed. I had her come back with me and reevaluate the patient she he did not seem indeed seem more lethargic this improved the longer he was on the BiPAP with switch him to AVAPS setting repeat blood gas done as well. Discussed with Dr. Dang will admit orders have been written. Medical Records I reviewed the patient's medical records. Lab Data 12/04/22 04:30 12/04/22 04:30 Labs/Radiology: Radiology Impressions Chest X-Ray 12/03/22 09:12 IMPRESSION: No acute cardiopulmonary abnormality. Ankle X-Ray 12/04/22 12:34 IMPRESSION: No acute bony abnormalities. Laboratory Results WBC 11.3 10^3/uL (4.0-10.0) H 12/03/22 09:22 RBC 6.03 10^6/uL (4.1-5.3) H 12/03/22 09:22 Hgb 17.0 g/dL (11.7-16.6) H 12/03/22 09:22 Hct 58.4 % (42.0-52.0) H 12/03/22 09:22 MCV 96.8 fl (80-94) H 12/03/22 09:22 MCH 28.2 pg (28.0-34.0) 12/03/22 09:22 MCHC 29.1 g/dL (30.0-36.0) L 12/03/22 09:22 RDW 18.3 % (12.1-15.1) H 12/03/22 09:22 Plt Count 320 10^3/cmm (130-400) 12/03/22 09:22 MPV 10.9 fL (7.4-10.4) H 12/03/22 09:22 Neut % (Auto) 77.9 % 12/03/22 09:22 Lymph % (Auto) 12.6 % 12/03/22 09:22 [place] % (Auto) 7.2 % 12/03/22 09:22 Eos % (Auto) 1.2 % 12/03/22 09:22 Baso % (Auto) 0.6 % 12/03/22 09:22 Neut # (Auto) 8.78 10^3/uL (1.8-7.7) H 12/03/22 09:22 Lymph # (Auto) 1.4 10^3/uL (0.8-4.8) 12/03/22 09:22 [place] # (Auto) 0.8 10^3/uL (0.2-0.9) 12/03/22 09:22 Eos # (Auto) 0.1 10^3/uL (0.0-0.8) 12/03/22 09:22 Baso # (Auto) 0.1 10^3/uL (0.0-0.1) 12/03/22 09:22 Nucleated RBC % (auto) 0 % 12/03/22 09: Nucleated RBCs # 0.0 /100WBC 12/03/22 09:22 PT 30.80 SECONDS (12.1-14.9) H 12/03/22 09:22 INR 2.83 (0.8-1.2) H 12/03/22 09:22 Specimen Type Arterial 12/03/22 10:46 Sample Site Radial, right 12/03/22 10:46 ABG pH 7.37 (7.35-7.45) 12/03/22 10:46 ABG pCO2 76.2 mmHg (35-45) H* 12/03/22 10:46 ABG pO2 87.6 mmHg (80.0-100.0) 12/03/22 10:46 ABG HCO3 44.5 mmol/L (22-26) H 12/03/22 10:46 ABG O2 Saturation 94.2 12/03/22 09:52 ABG Base Excess 14.4 mmol/L (-2.0-2.0) H 12/03/22 10:46 Ilan Test Pos 12/03/22 10:46 A-a O2 Gradient 9.7 mmHg (5-10) 12/03/22 09:52 Hematocrit 52.1 % (42-52) H 12/03/22 10:46 Hgb O2 Saturation 86.1 % (95-100) L 12/03/22 09:52 Carboxyhemoglobin 8.3 %THgb (0.4-20.1) 12/03/22 09:52 Methemoglobin 0.3 % (0.4-1.5) L 12/03/22 09:52 Total Hemoglobin 16.6 g/dL (14-18) 12/03/22 09:52 Sodium 137.0 mmol/L (131-143) 12/03/22 09:52 Potassium 3.3 mmol/L (3.5-5.0) L 12/03/22 09:52 Glucose 131.0 mg/dL (70-115) H 12/03/22 09:52 Ionized Calcium 1.2 mmol/L (1.1-1.4) 12/03/22 09:52 O2 Delivery Device Bipap 12/03/22 10:46 O2 Liters/Min 3.0 % 12/03/22 09:52 FiO2 50.0 % 12/03/22 10:46 Physicist Cryogenics ID [place] 12/03/22 10:46 Sodium 137 mmol/L (136-145) 12/03/22 09:22 Potassium 3.2 mmol/L (3.5-5.1) L 12/03/22 09:22 Chloride 89 mmol/L (98-107) L 12/03/22 09:22 Carbon Dioxide 39 mmol/L (22-29) H 12/03/22 09:22 Anion Gap 12.2 (5-19) 12/03/22 09:22 BUN 20 mg/dL (6-20) 12/03/22 09:22 Creatinine 1.2 mg/dL (0.7-1.2) 12/03/22 09:22 GFR Calculation 68.1 mL/min (90-130) L 12/03/22 09:22 Glucose 136 mg/dL (65-115) H 12/03/22 09:22 Estimat Average Glucose 166 12/03/22 09:22 Hemoglobin A1c 7.4 % (4.0-6.0) H 12/03/22 09:22 Calculated Osmolality 289 mOsm/kg (285-295) 12/03/22 09:22 Lactic Acid 2.0 mmol/L (0.5-2.2) 12/03/22 09:22 Uric Acid 12.2 mg/dL (3.4-7.0) H 12/03/22 04:30 Calcium 8.8 mg/dL (8.5-10.5) 12/03/22 09:22 Magnesium 1.5 mg/dL (1.7-2.3) L 12/03/22 09:22 Total Bilirubin 0.6 mg/dL (0.15-1.2) 12/03/22 09:22 AST 21 U/L (0-40) 12/03/22 09:22 ALT 15 U/L (0-41) 12/03/22 09:22 Alkaline Phosphatase 180 U/L (40-130) H 12/03/22 09:22 Troponin T Baseline 18 ng/L (0-15) H 12/03/22 09:22 Troponin T 120 Minute 17.01 ng/L (0-15) H 12/03/22 11:25 Delta Troponin T -0.99 ABS# (0-10) L 12/03/22 11:25 C-Reactive Protein 37.6 mg/L (0.0-4.9) H 12/03/22 09:22 NT-Pro-B Natriuret Pep 2136 pg/mL (0-125) H 12/03/22 09:22 Total Protein 6.7 g/dL (6.6-8.7) 12/03/22 09:22 Albumin 2.8 g/dL (3.5-5.2) L 12/03/22 09:22 Globulin 3.9 g/dL (1.3-4.6) 12/03/22 09:22 Discharge Plan Discharge Patient Disposition: Admitted As Inpatient Admit Provider: Srinivas Lunsford Clinical Impression: Respiratory failure with hypoxia and hypercapnia, CHF exacerbation, Obstructive sleep apnea, Deep vein thrombosis, Hypokalemia, Acute encephalopathy Condition: Stable Coding Level of Care Code ED Wallpaper Scraper for Billie Quach
--- NOTE | 2022-12-03 09:12 | ECG_ITS ---
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 Measurements Intervals [place] Rate: 85 P: 76 ID: [id number] QRS: 116 QRSD: 97 T: 69 QT: 387 QTc: 460 Interpretive Statements SINUS RHYTHM RIGHT ATRIAL ENLARGEMENT [0.3mV P-WAVE] INCOMPLETE RIGHT BUNDLE BRANCH BLOCK [90+ ms QRS DURATION, TERMINAL R IN V1/V2, 40+ ms S IN I/aVL/V4/V5/V6] RIGHT VENTRICULAR HYPERTROPHY [SOME/ALL OF: PROMINENT R IN V1, LATE TRANSITION, RAD, SHIRAZ, SSS] MODERATE ST DEPRESSION [0.05+ mV ST DEPRESSION] Compared to ECG 01/05/2021 15:52:17 Atrial abnormality now present Incomplete right bundle-branch block now present Right ventricular hypertrophy now present ST (T wave) deviation now present Electronically Signed On 12-03-2022 18:39:14 CDT by Tip Jose M.D. [email or web address]
--- NOTE | 2022-12-03 09:12 | XRR_ITS ---
PROCEDURE INFORMATION: Exam: XR Chest Exam date and time: 12/03/2022 9:40 AM Age: 36 years old Clinical indication: Shortness of breath; Additional info: SOB TECHNIQUE: Imaging protocol: Radiologic exam of the chest. Views: 1 view. COMPARISON: CR XR chest 1V portable [id number] 08/02/2022 5:30 PM FINDINGS: Lungs: No focal airspace disease. Pleural spaces: Unremarkable. No pleural effusion. No pneumothorax. Heart/Mediastinum: Cardiomediastinal silhouette is within normal limits. Bones/joints: Unremarkable. XR/XR chest 1V portable [id number] IMPRESSION: No acute cardiopulmonary abnormality.
[2022-12-03 09:40] LABS: Basophils # 0.1 10^3/uL (0.0-0.1); Basophils % 0.6 %; Eosinophils # 0.1 10^3/uL (0.0-0.8); Eosinophils % 1.2 %; Hematocrit 58.4 % (42.0-52.0); Lymphocytes # 1.4 10^3/uL (0.8-4.8); Lymphocytes % 12.6 %; Mean Corpuscular HGB Conc 29.1 g/dL (30.0-36.0); Mean Corpuscular Hemoglobin 28.2 pg (28.0-34.0); Mean Corpuscular Volume 96.8 fl (80-94); Mean Platelet Volume 10.9 fL (7.4-10.4); Monocytes # 0.8 10^3/uL (0.2-0.9); Monocytes % 7.2 %; Neutrophils # 8.78 10^3/uL (1.8-7.7); Neutrophils % 77.9 %; Nucleated Red Blood Cells % 0 %; Platelet Count 320 10^3/cmm (130-400); Red Blood Count 6.03 10^6/uL (4.1-5.3); Red Cell Distribution Width 18.3 % (12.1-15.1); White Blood Count 11.3 10^3/uL (4.0-10.0)
[2022-12-03 09:51] LABS: INR 2.83 (0.8-1.2)
[2022-12-03 10:03] LABS: Troponin(5th) Baseline 18 ng/L (0-15)
[2022-12-03 10:04] LABS: Arterial Blood Gas Hematocrit 50.9 % (42-52); Base Excess ABG 13.9 mmol/L (-2.0-2.0); Blood Gas Allen Test Pos; Blood Gas Sample Type Arterial; Carboxyhemoglobin 8.3 %THgb (0.4-20.1); HCO3 ABG 42.9 mmol/L (22-26); HGB O2 Sat 86.1 % (95-100); Ionized Calcium Level - ABG 1.2 mmol/L (1.1-1.4); Methemoglobin 0.3 % (0.4-1.5); Oxygen Saturation ABG 94.2; PO2 ABG 69.5 mmHg (80.0-100.0); Potassium Level - ABG 3.3 mmol/L (3.5-5.0); Total Hemoglobin 16.6 g/dL (14-18)
[2022-12-03 10:05] LABS: ABG PCO2 69.6 mmHg (35-45); Alveolar-Arterial Oxygen Gradi 9.7 mmHg (5-10); Blood Gas Operator Identificat MONRO; Blood Gas Sample Site Radial, right; Oxygen Device NC
[2022-12-03] MEDS: FUROsemide 10 mg/mL SDV 4mL 40 MG IVP (10:07)
[2022-12-03 10:09] LABS: Alanine Aminotransferase 15 U/L (0-41); Albumin Level 2.8 g/dL (3.5-5.2); Alkaline Phosphatase 180 U/L (40-130); Anion Gap 12.2 (5-19); Aspartate Amino Transferase 21 U/L (0-40); Blood Urea Nitrogen 20 mg/dL (6-20); C Reactive Protein 37.6 mg/L (0.0-4.9); Calcium 8.8 mg/dL (8.5-10.5); Carbon Dioxide 39 mmol/L (22-29); Chloride 89 mmol/L (98-107); Globulin 3.9 g/dL (1.3-4.6); Glomerular Filtration Rate 68.1 mL/min (90-130); Glucose 136 mg/dL (65-115); NT Pro B Type Natriuretic Pept 2136 pg/mL (0-125); Osmolality Calculated 289 mOsm/kg (285-295); Potassium 3.2 mmol/L (3.5-5.1); Sodium 137 mmol/L (136-145); Total Bilirubin 0.6 mg/dL (0.15-1.2); Total Protein 6.7 g/dL (6.6-8.7)
[2022-12-03] MEDS: ipratropium-albuterol 3 mL Neb INHALATION ×3 (10:20→20:21)
[2022-12-03 10:51] LABS: ABG PCO2 76.2 mmHg (35-45); ABG PH Result 7.37 (7.35-7.45); Arterial Blood Gas Hematocrit 52.1 % (42-52); Base Excess ABG 14.4 mmol/L (-2.0-2.0); Blood Gas Allen Test Pos; Blood Gas Operator Identificat MONRO; Blood Gas Sample Site Radial, right; Blood Gas Sample Type Arterial; HCO3 ABG 44.5 mmol/L (22-26); Oxygen Device BIPAP; PO2 ABG 87.6 mmHg (80.0-100.0)
--- NOTE | 2022-12-03 11:12 | ECG_ITS ---
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 Measurements Intervals [place] Rate: 67 P: 63 [place]: 184 QRS: 101 QRSD: 93 T: 66 QT: 428 QTc: 454 Interpretive Statements SINUS RHYTHM POSSIBLE RIGHT ATRIAL ENLARGEMENT [0.25mV P-WAVE] INCOMPLETE RIGHT BUNDLE BRANCH BLOCK [90+ ms QRS DURATION, TERMINAL R IN V1/V2, 40+ ms S IN I/aVL/V4/V5/V6] PROBABLE ANTEROSEPTAL MYOCARDIAL INFARCTION , OF INDETERMINATE AGE [35 ms Q WAVE IN V1-V4] Compared to ECG 12/03/2022 09:29:38 Myocardial infarct finding now present Right ventricular hypertrophy no longer present ST (T wave) deviation no longer present Electronically Signed On 12-03-2022 18:52:34 CDT by Tip Jose M.D. [id number]
[2022-12-03 11:49] LABS: Troponin 5 2HR 17.01 ng/L (0-15); Troponin 5 2HR Delta -0.99 ABS# (0-10)
[2022-12-03] MEDS: lidocaine 1% 5 ML in potassium chloride premix 100 ML 26.25 ML IV (11:55)
--- NOTE | 2022-12-03 12:06 | P.HP_ITS ---
Providers/Chief Complaint Admitting Physician: Srinivas Lunsford MD Primary Care Provider: Desirae Corrales NP Chief Complaint: Swelling, SOB History of Present Illness Cj Conrad is a 36 year old male presenting to the emergency department with increased shortness of breath, and swelling. History is difficult secondary to the patient's waxing and waning responsiveness. He has significant CO2 retention, and will wake up with significant stimuli, but quickly goes to sleep. I do not gather that he has had any chest pain. He seems to indicate he is on 2 L of oxygen at night. I do not gather that he has a history of any fever. ER physician notes reviewed as well. Review of Systems General: Reports: 10 or more systems reviewed and unremarkable except in HPI and below and ROS unobtainable due to medical condition (Significantly difficult secondary to mental status) Card: Reports: swelling of feet/ankles; Denies: chest pain Resp: Reports: dyspnea GI: Denies: abdominal pain, nausea, hematochezia or melena Medications/Allergies Home Medications Medication Instructions Recorded Confirmed Last Taken Type albuterol sulfate 90 mcg/actuation 2 puff inhalation 6XD PRN 02/13/21 12/03/22 Unknown Rx aerosol inhaler (ProAir HFA) shortness of breath or wheezing 30 days #8.5 grams metolazone 5 mg tablet 2.5 mg PO DAILY #45 tabs 05/21/22 12/03/22 12/02/22 Rx atorvastatin 40 mg tablet 40 mg PO DAILY #90 tabs 08/21/22 12/03/22 12/02/22 Rx loratadine 10 mg tablet (Allergy 10 mg PO DAILY PRN Allergy Symptoms 08/21/22 12/03/22 12/02/22 History Relief (loratadine)) bumetanide 2 mg tablet 2 mg PO DAILY 12/03/22 12/03/22 12/02/22 History warfarin 10 mg tablet See Rx Instructions .Route .COMPLEX 12/03/22 12/03/22 Unknown History warfarin 6 mg tablet (Jantoven) See Rx Instructions .Route .COMPLEX 12/03/22 12/03/22 12/02/22 History Allergies Allergy/AdvReac Type Severity Reaction Status Date / Time No Known Allergies Allergy Verified 12/03/22 10:02 PFSH Acute PFSH: Medical History Acute respiratory failure with hypoxia BMI 50.0-59.9, adult CHF exacerbation Deep vein thrombosis Hypertension Morbid obesity Obesity hypoventilation syndrome Obstructive sleep apnea Proteinuria Pulmonary emboli Smoker Warfarin anticoagulation Surgical History No history of previous surgery Family History Sister Brain aneurysm Mother History of multiple strokes Chronic kidney disease on chronic dialysis Grandmother CAD (coronary artery disease) Other Diabetes Stroke Social History Second hand smoke exposure: No Smoking risk assessment/counseling performed?: Yes Alcohol intake: never Counseling given: No Substance/Drug Use: never Counseling given: No Lives independently: Yes Housing: House Do you think of yourself as: Straight/Heterosexual Current gender identity: Male Vitals/I&O/Wt Last Vital Signs Temp 98.0 F 12/03/22 09:03 Pulse 73 12/03/22 11:45 Resp 22 H 12/03/22 11:45 BP 154/123 12/03/22 11:45 Pulse Ox 91 12/03/22 11:30 O2 Del Method BiPAP 12/03/22 10:20 O2 Flow Rate 3 12/03/22 09:03 FiO2 40 12/03/22 11:01 Weight last 48 hrs Weight 208.652 kg Physical Exam Narrative: General exam is an obese white male, sleepy, on AVAPS HEENT: Pupils equally round. Oropharynx not examined as he is on AVAPS Neck is supple no lymphadenopathy thyromegaly Cardiovascular regular rate and rhythm, heart sounds distant Lungs clear but with markedly diminished breath sounds bilaterally Abdomen is obese. Abdominal wall edema is noted. Cannot assess any organomegaly. Bowel sounds are noted. exam is deferred Extremities show 3+ edema bilaterally. Skin no rash Neuro no obvious focal deficits, however sleepy consistent with encephalopathy from CO2 narcosis Data 12/03/22 09:22 12/03/22 09:22 Other Labs: Chest x-ray which I reviewed demonstrates some cardiomegaly but no obvious infiltrate INR is 2.83 ABG, last 1 done demonstrates pH 7.37, PCO2 76, PO2 of 88 LFTs are normal Alk phos 180 Troponin 18 with repeat of 17 Albumin 2.8 Calcium 8.8 Sugar elevated at 136 Last echocardiogram, significantly limited in 2020 demonstrated normal EF, dilated RV EKG today by my interpretation demonstrates sinus rhythm, rate 85, normal axis, incomplete right bundle, no acute changes A&P Assessment and plan (1) Congestive heart failure: Patient presents with acute diastolic heart failure. Likely a large component of cor pulmonale as well. I suspect he has significant pulmonary hypertension Continue his Zaroxolyn Lasix 60 mg IV every 12 hours Close follow-up of electrolytes monitoring for renal toxicity. BMP and magnesium tomorrow. Considered echo, but this will be a significantly poor study considering his body habitus. We will treat him clinically initially. ELIZABETH currently in the ICU (2) Respiratory failure with hypoxia and hypercapnia: Has significant acute hypoxemia and hypercapnia secondary to acute diastolic heart failure. He also has a smoking history. There is also a significant component of obesity hypoventilation. He also likely has pulmonary hypertension and cor pulmonale from previous DVT and PE. Monitor neurologic function closely Respiratory support with AVTOMÁS currently in the ICU secondary to CO2 retention (3) Hypokalemia: Potassium significantly low IV potassium I have ordered in the emergency department. P.o. potassium later today and repeat BMP tomorrow. Check magnesium level (4) Acute encephalopathy: Secondary to CO2 retention Continue to follow closely Consistent with acute metabolic encephalopathy TSH has recently been checked and normal (5) Morbid obesity: Encourage weight loss Contributes to obesity hypoventilation (6) Tobacco dependency: Has known tobacco dependency. Cannot rule out COPD as a component. DuoNeb every 4 hours, budesonide. I do not see a reason for IV steroids currently. (7) Hyperglycemia: Patient has hyperglycemia. Check hemoglobin A1c, address appropriately (8) Pulmonary emboli: Past history of DVT and PE. Continue Coumadin. Pharmacy to adjust dosing as needed. Pharmacy consult for this. INR daily. Plan Multiple other medical problems as outlined in past medical history. Full code currently Coumadin will suffice for DVT prophylaxis Attestations Medical Necessity Statement*: Needs greater than 2 midnight stay for evaluation and treatment of severe CHF, acute encephalopathy Critical Care Time: The high probability of a clinically significant, sudden or life threatening deterioration of the patient's [pulmonary, cardiac, electrolyte] system(s) required my full and direct attention, intervention and personal management. The critical care time is as shown. This time is in addition to time spent performing any reported procedures but includes the following: [x] Data and vital sign review and interpretation [x] Patient assessment, examination and intervention [x] Documentation [x] Medication orders and management Critical Care Time (min): 43 Coding Level of Care Code Critical Care >/= 30 minutes Critical care time (in minutes): 43 The high probability of a clinically significant, sudden or life threatening deterioration, as referenced in this documentation, required my full and direct attention, intervention and personal management. The critical care time shown is in addition to time spent performing any reported separately billable procedures and includes the following: [x] Data and vital sign review and interpretation [x ] Patient assessment, examination and intervention [x] Medication orders and management [x] Patient/Family updates as able [x] Care Coordination and D ocumentation. Diagnoses Congestive heart failure I50.9 Respiratory failure with hypoxia and hypercapnia J96.91; J96.92 Hypokalemia E87.6 Acute encephalopathy G93.40 Morbid obesity E66.01 Tobacco dependency F17.200 Hyperglycemia R73.9 Pulmonary emboli I26.99
[2022-12-03 12:49] LABS: Magnesium 1.5 mg/dL (1.7-2.3)
[2022-12-03 13:06] LABS: Estmated Average Glucose 166; Hemoglobin A1C 7.4 % (4.0-6.0)
[2022-12-03] MEDS: magnesium sulfate premix 2 GM/50 ML PIGGYBACK IV (14:39)
--- NOTE | 2022-12-03 15:35 | ECG_ITS ---
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 Measurements Intervals [place] Rate: 80 P: 72 [place]: 173 QRS: 111 QRSD: 98 T: 66 QT: 392 QTc: 455 Interpretive Statements SINUS RHYTHM RIGHT ATRIAL ENLARGEMENT [0.3mV P-WAVE] INCOMPLETE RIGHT BUNDLE BRANCH BLOCK [90+ ms QRS DURATION, TERMINAL R IN V1/V2, 40+ ms S IN I/aVL/V4/V5/V6] RIGHT VENTRICULAR HYPERTROPHY [SOME/ALL OF: PROMINENT R IN V1, LATE TRANSITION, RAD, SHIRAZ, SSS] PROBABLE ANTEROSEPTAL MYOCARDIAL INFARCTION , OF INDETERMINATE AGE [35 ms Q WAVE IN V1-V4] Compared to ECG 12/03/2022 13:37:14 Right ventricular hypertrophy now present Myocardial infarct finding still present Electronically Signed On 12-03-2022 18:54:41 CDT by Tip Jose M.D. [email or web address]
[2022-12-03 16:31] LABS: Troponin 5 6HR 17.32 ng/L (0-15); Troponin 5 6HR Delta -0.68 ng/L (0-12)
--- NOTE | 2022-12-03 17:17 | PC.PHAR ---
PHA warfarin Consult: Goal 2-3 diagnosis DVT Patient home dose reconciled as 6 mg SuThFrSa 10 mg MoTuWe. I usually double check dosing when >/=10mg. External Med History shows alternating dose of: 6 mg - 2 tablets (12mg) MoWeFr 10mg SuTuThSa. Due to the discrepancy I interviewed the patient by asking what he takes, what was reconciled, and reading back his prescription info. He confirmed: I take the lower pill which winds up being the higher mg saturday, saturday and Saturday I take the other pill on the other days I confirmed in a different way You take 2 of the blueish pill (the color of 6 mg) Saturday, Saturday and Saturday - he nodded, yes blue pill you take one of the white pill (the color of 10 mg) Saturday, Saturday, , and Saturday - he nodded yes white pill Called Fuentes's office who confirmed last note matched external med history Patient had not taken dose today (12/03/22), so [address] Lunsford and relayed the situation and the dosing we are starting with. We will monitor closely. labs entered for , , &
[2022-12-03] MEDS: warfarin 6 mg Tablet 12 MG PO (17:35)
[2022-12-03] MEDS: potassium chloride ER 20 mEq Tablet 40 MEQ PO (17:35)
[2022-12-03 17:47] LABS: Bilirubin Urine Neg (Negative); Blood Urine 3+ (Negative); Glucose Urine UA Norm (Normal); Ketones Urine Negative (Negative); Leukocyte Esterase Urine Negative (Negative); Nitrate Urine Negative (Negative); Protein Urine 2+ (Negative); Urine Appearance Clear (CLEAR); Urine Color Yellow (Yellow); Urobilinogen Urine Norm (Negative); pH Urine 6.5 (5-7)
[2022-12-03 17:48] LABS: Add Urine Culture? No; Bacteria Urine TRACE /hpf; Mucus Urine TRACE /hpf
[2022-12-03] MEDS: budesonide 0.5 mg/2 mL Neb INHALATION (20:21)
[2022-12-03] MEDS: FUROsemide 10 mg/mL SDV 10mL 60 MG IVP (21:15)
[2022-12-04] VITALS (242 sets, daily range): BP systolic 99–179; BP diastolic 66–112; PULSE 0–111; RESP 8–27; TEMP 36.3–37.1; O2SAT 80–100
[2022-12-04] MEDS: ipratropium-albuterol 3 mL Neb INHALATION ×7 (00:06→23:27)
[2022-12-04 05:19] LABS: Basophils # 0.1 10^3/uL (0.0-0.1); Basophils % 0.4 %; Eosinophils # 0.2 10^3/uL (0.0-0.8); Eosinophils % 1.6 %; Hematocrit 55.6 % (42.0-52.0); Hemoglobin 16.3 g/dL (11.7-16.6); Lymphocytes # 1.3 10^3/uL (0.8-4.8); Lymphocytes % 11.3 %; Mean Corpuscular HGB Conc 29.3 g/dL (30.0-36.0); Mean Corpuscular Hemoglobin 28.3 pg (28.0-34.0); Mean Corpuscular Volume 96.7 fl (80-94); Mean Platelet Volume 11.1 fL (7.4-10.4); Monocytes # 0.7 10^3/uL (0.2-0.9); Monocytes % 6.3 %; Neutrophils # 9.08 10^3/uL (1.8-7.7); Nucleated Red Blood Cells % 0 %; Platelet Count 301 10^3/cmm (130-400); Red Blood Count 5.75 10^6/uL (4.1-5.3); Red Cell Distribution Width 18.4 % (12.1-15.1); White Blood Count 11.4 10^3/uL (4.0-10.0)
[2022-12-04 05:32] LABS: INR 2.38 (0.8-1.2)
[2022-12-04 05:38] LABS: Alanine Aminotransferase 11 U/L (0-41); Alkaline Phosphatase 170 U/L (40-130); Anion Gap 11.3 (5-19); Aspartate Amino Transferase 19 U/L (0-40); Blood Urea Nitrogen 15 mg/dL (6-20); Calcium 8.8 mg/dL (8.5-10.5); Carbon Dioxide 40 mmol/L (22-29); Chloride 91 mmol/L (98-107); Globulin 3.8 g/dL (1.3-4.6); Glomerular Filtration Rate 108.8 mL/min (90-130); Glucose 100 mg/dL (65-115); Magnesium 1.5 mg/dL (1.7-2.3); Osmolality Calculated 289 mOsm/kg (285-295); Potassium 3.3 mmol/L (3.5-5.1); Sodium 139 mmol/L (136-145); Total Bilirubin 1.4 mg/dL (0.15-1.2); Total Protein 6.8 g/dL (6.6-8.7)
[2022-12-04] MEDS: budesonide 0.5 mg/2 mL Neb INHALATION ×2 (07:28→20:45)
--- NOTE | 2022-12-04 07:36 | PC.NURSE ---
Urinary rincon placed yesterday during day shift.
--- NOTE | 2022-12-04 08:26 | PM.PN ---
Subjective Subjective: Hakan reports he feels little bit better. No chest pain. Less short of breath. Wondering if he can have some caffeine. He has been compliant with BiPAP at night. He alerts me BiPAP is being set up at home soon. Medications: Reviewed: Yes Vitals/I&O/Wt Last Vital Signs Temp 97.9 F 12/04/22 03:55 Pulse 83 12/04/22 07:38 Resp 25 H 12/04/22 07:27 BP 179/84 12/04/22 06:25 Pulse Ox 90 12/04/22 07:38 O2 Del Method BiPAP 12/04/22 07:27 O2 Flow Rate 3 12/03/22 09:03 FiO2 40 12/04/22 07:38 12/03/22 12/04/22 12/04/22 22:59 06:59 14:59 Intake Total 150 / 150 360 / 510 Output Total 1875 / 1875 3425 / 5300 Balance -1725 / -1725 -3065 / -4790 Weight last 48 hrs Weight 208.652 kg Physical Exam Narrative: General exam is an obese white male, distress. 4800 negative Neck is supple no lymphadenopathy thyromegaly Cardiovascular regular rate and rhythm, heart sounds distant Lungs clear but with markedly diminished breath sounds bilaterally Abdomen is obese. Abdominal wall edema is noted. Cannot assess any organomegaly. Bowel sounds are noted. , Knight noted Extremities show 3+ edema bilaterally. Neurologic: Awakens easily. Urinary Catheter Management: Knight: Cath Placed During This Visit: yes Urinary Catheter Date of Insertion: 12/03/22 Data 12/04/22 04:30 12/04/22 04:30 Micro: Microbiology 12/03/22 16:03 Blood Culture - Preliminary Blood SPECIMEN COLLECTED 12/03/22 15:55 Blood Culture - Preliminary Blood SPECIMEN COLLECTED A&P Assessment and plan (1) Congestive heart failure: Patient presents with acute diastolic heart failure. Likely a large component of cor pulmonale as well. I suspect he has significant pulmonary hypertension Continue his Zaroxolyn He has had significant diuresis. Reduce Lasix to 40 mg IV every 12 hours Continue to check BMP daily, to monitor renal function and magnesium Considered echo, but this will be a significantly poor study considering his body habitus. We will treat him clinically initially. Continue BiPAP at night (2) Respiratory failure with hypoxia and hypercapnia: Has significant acute hypoxemia and hypercapnia secondary to acute diastolic heart failure. He also has a smoking history. There is also a significant component of obesity hypoventilation. He also likely has pulmonary hypertension and cor pulmonale from previous DVT and PE. Continue BiPAP at night Continue diuresis Overall improving (3) Hypokalemia: Supplement again today, IV and p.o. Associated with hypomagnesemia. Supplement this as well. Check magnesium level tomorrow along with potassium (4) Acute encephalopathy: Secondary to CO2 retention This has now resolved TSH has recently been checked and normal (5) Morbid obesity: Encourage weight loss Contributes to obesity hypoventilation (6) Tobacco dependency: Has known tobacco dependency. Cannot rule out COPD as a component. DuoNeb every 4 hours, budesonide. I do not see a reason for IV steroids currently. (7) Hyperglycemia: Patient has hyperglycemia. A1c is elevated. Blood sugar this morning is normal. Placed on consistent carb diet. Outpatient diabetic education. Consider metformin at discharge. A1c was 7.4%. (8) Pulmonary emboli: Past history of DVT and PE. Continue Coumadin. Pharmacy to adjust dosing as needed. Pharmacy consult for this. INR daily. Plan Multiple other medical problems as outlined in past medical history. Full code currently Coumadin will suffice for DVT prophylaxis Attestations Medical Necessity Statement*: Continued hospitalization for further diuresis secondary to acute congestive heart failure associated with anasarca and respiratory failure Diagnoses Congestive heart failure I50.9 Respiratory failure with hypoxia and hypercapnia J96.91; J96.92 Hypokalemia E87.6 Acute encephalopathy G93.40 Morbid obesity E66.01 Tobacco dependency F17.200 Hyperglycemia R73.9 Pulmonary emboli I26.99 Time Spent (min) 26
[2022-12-04] MEDS: lidocaine 1% 5 ML in potassium chloride premix 100 ML 26.25 ML IV (08:32)
[2022-12-04] MEDS: magnesium sulfate premix 2 GM/50 ML PIGGYBACK IV (08:32)
[2022-12-04] MEDS: potassium chloride ER 20 mEq Tablet 40 MEQ PO ×2 (08:33→17:01)
[2022-12-04] MEDS: metOLazone 5 MG Tablet 2.5 MG PO (08:33)
[2022-12-04] MEDS: FUROsemide 10 mg/mL SDV 4mL 40 MG IVP ×2 (08:34→19:15)
[2022-12-04] MEDS: atorvastatin 40 mg Tablet PO (08:36)
[2022-12-04] MEDS: acetaminophen 325 mg Tablet 650 MG PO (12:34)
--- NOTE | 2022-12-04 12:34 | XRR_ITS ---
PROCEDURE INFORMATION: Exam: XR Right Ankle Exam date and time: 12/04/2022 11:40 AM Age: 36 years old Clinical indication: Pain; Ankle; Right TECHNIQUE: Imaging protocol: Radiologic exam of the right ankle. Views: 1 or 2 views. COMPARISON: No relevant prior studies available. FINDINGS: Bones/joints: There is a moderate size spur arising the posterior aspect of the calcaneus otherwise osseous structures and joint surfaces are intact. No fracture, dislocation or malalignment. Joint surfaces are fairly well preserved. Soft tissues: Unremarkable. XR/XR ankle RT 2V 47650 IMPRESSION: No acute bony abnormalities.
[2022-12-04 13:22] LABS: Uric Acid 12.2 mg/dL (3.4-7.0)
[2022-12-04] MEDS: warfarin 5 mg Tablet 10 MG PO (14:46)
[2022-12-04] MEDS: predniSONE 20 mg Tablet 40 MG PO (17:01)
--- NOTE | 2022-12-04 23:02 | PC.NURSE ---
Patient rates pain in right ankle/foot 4/10. Patient offered PRN Tylenol and refused.
[2022-12-05] VITALS (33 sets, daily range): BP systolic 120–161; BP diastolic 66–93; PULSE 72–96; RESP 12–26; TEMP 36.6–37.1; O2SAT 80–97
[2022-12-05] MEDS: acetaminophen 325 mg Tablet 650 MG PO (03:44)
[2022-12-05] MEDS: ipratropium-albuterol 3 mL Neb INHALATION ×5 (04:06→20:11)
[2022-12-05 06:30] LABS: Basophils % 0.1 %; Hematocrit 54.9 % (42.0-52.0); Hemoglobin 15.8 g/dL (11.7-16.6); Lymphocytes # 0.8 10^3/uL (0.8-4.8); Lymphocytes % 5.7 %; Mean Corpuscular HGB Conc 28.8 g/dL (30.0-36.0); Mean Corpuscular Hemoglobin 27.6 pg (28.0-34.0); Mean Corpuscular Volume 95.8 fl (80-94); Mean Platelet Volume 10.5 fL (7.4-10.4); Monocytes # 0.8 10^3/uL (0.2-0.9); Monocytes % 5.6 %; Neutrophils # 12.08 10^3/uL (1.8-7.7); Neutrophils % 88.2 %; Nucleated Red Blood Cells % 0 %; Platelet Count 309 10^3/cmm (130-400); Red Blood Count 5.73 10^6/uL (4.1-5.3); White Blood Count 13.7 10^3/uL (4.0-10.0)
[2022-12-05 06:52] LABS: INR 2.78 (0.8-1.2)
[2022-12-05 06:55] LABS: Alanine Aminotransferase 12 U/L (0-41); Albumin Level 2.5 g/dL (3.5-5.2); Alkaline Phosphatase 160 U/L (40-130); Anion Gap 11.5 (5-19); Aspartate Amino Transferase 15 U/L (0-40); Blood Urea Nitrogen 14 mg/dL (6-20); Calcium 8.9 mg/dL (8.5-10.5); Carbon Dioxide 37 mmol/L (22-29); Chloride 90 mmol/L (98-107); Globulin 4.2 g/dL (1.3-4.6); Glomerular Filtration Rate 126.9 mL/min (90-130); Glucose 144 mg/dL (65-115); Magnesium 1.5 mg/dL (1.7-2.3); Osmolality Calculated 283 mOsm/kg (285-295); Potassium 3.5 mmol/L (3.5-5.1); Sodium 135 mmol/L (136-145); Total Bilirubin 0.9 mg/dL (0.15-1.2); Total Protein 6.7 g/dL (6.6-8.7)
[2022-12-05] MEDS: budesonide 0.5 mg/2 mL Neb INHALATION ×2 (07:34→20:11)
[2022-12-05] MEDS: atorvastatin 40 mg Tablet PO (08:37)
[2022-12-05] MEDS: predniSONE 20 mg Tablet 40 MG PO (08:37)
[2022-12-05] MEDS: FUROsemide 10 mg/mL SDV 4mL 40 MG IVP ×2 (08:37→21:17)
[2022-12-05] MEDS: metOLazone 5 MG Tablet 2.5 MG PO (08:37)
[2022-12-05] MEDS: potassium chloride ER 20 mEq Tablet 40 MEQ PO ×2 (08:39→17:22)
[2022-12-05] MEDS: magnesium sulfate premix 2 GM/50 ML PIGGYBACK IV (08:39)
[2022-12-05] MEDS: doxycycline 100 mg Tablet PO ×2 (08:39→17:22)
--- NOTE | 2022-12-05 10:29 | PM.PN ---
Subjective Subjective: Cj reports he feels much better than on admission. He is still wheezing quite a bit. He is on around 4 L of oxygen or so at baseline. No vomiting or diarrhea. On AVAPS while sleeping. He complained of right ankle pain yesterday. X-ray was negative. Gout is suspected. Uric acid level significantly elevated. Medications: Reviewed: Yes Vitals/I&O/Wt Last Vital Signs Temp 98 F 12/05/22 08:00 Pulse 85 12/05/22 08:00 Resp 17 12/05/22 08:00 BP 144/77 12/05/22 08:00 Pulse Ox 97 12/05/22 08:00 O2 Del Method Nasal Cannula 12/05/22 08:00 O2 Flow Rate 4 12/05/22 08:00 FiO2 50 12/05/22 07:36 12/04/22 12/05/22 12/05/22 22:59 06:59 14:59 Intake Total 240 / 1590 400 / 1990 404 / 404 Output Total 1000 / 3350 2500 / 5850 Balance -760 / -1760 -2100 / -3860 404 / 404 Weight last 48 hrs Weight 216.001 kg Physical Exam Narrative: General exam is an obese white male, distress. 3900 negative Neck is supple no lymphadenopathy thyromegaly Cardiovascular regular rate and rhythm, heart sounds distant Lungs wheezing noted today Abdomen is obese. Abdominal wall edema is noted. Cannot assess any organomegaly. Bowel sounds are noted. Eugene WALKER noted Extremities show 2+ edema bilaterally. Urinary Catheter Management: Knight: Cath Placed During This Visit: yes Reason for Continuing Indwelling Catheter: Accurate Measurement of Urinary Output in Critically Ill Patients Urinary Catheter Date of Insertion: 12/03/22 Data 12/05/22 06:13 12/05/22 06:13 Micro: Microbiology 12/03/22 16:03 Blood Culture - Preliminary Blood NEGATIVE TO DATE 12/03/22 15:55 Blood Culture - Preliminary Blood NEGATIVE TO DATE A&P Assessment and plan (1) Congestive heart failure: Patient presents with acute diastolic heart failure. Likely a large component of cor pulmonale as well. I suspect he has significant pulmonary hypertension Continue his Zaroxolyn Continue Lasix to 40 mg IV every 12 hours Continue to check BMP daily, to monitor renal function and magnesium Considered echo, but this will be a significantly poor study considering his body habitus. Continue to treat him clinically Continue BiPAP at night (2) Respiratory failure with hypoxia and hypercapnia: Has significant acute hypoxemia and hypercapnia secondary to acute diastolic heart failure. He also has a smoking history. There is also a significant component of obesity hypoventilation. He also likely has pulmonary hypertension and cor pulmonale from previous DVT and PE. He presented with CO2 narcosis and hypercarbic respiratory failure. He is currently on AVAPS settings. He may be a candidate for trilogy. Overnight oximetry. Without respiratory support at night, I expect frequent recurrent hospitalizations and certainly high risk of and/or disability. Slow improvement (3) Hypokalemia: Normal today. Continue to supplement Associated with hypomagnesemia. Supplement this again today. Repeat level tomorrow. Check BMP tomorrow as he is on IV diuretics (4) Acute encephalopathy: Secondary to CO2 retention This has now resolved TSH has recently been checked and normal (5) Morbid obesity: Encourage weight loss Contributes to obesity hypoventilation (6) Tobacco dependency: Has known tobacco dependency. Cannot rule out COPD as a component. DuoNeb every 4 hours, budesonide. Secondary to wheezing, steroids and doxycycline added. Steroids also added for secondary concern of gout (7) Hyperglycemia: Patient has hyperglycemia. A1c is elevated. Blood sugar this morning is normal. Placed on consistent carb diet. Outpatient diabetic education. Consider metformin at discharge. A1c was 7.4%. (8) Pulmonary emboli: Past history of DVT and PE. Continue Coumadin. Pharmacy to adjust dosing as needed. Pharmacy consult for this. INR daily. Probable gout. Prednisone initiated Plan Multiple other medical problems as outlined in past medical history. Full code currently Coumadin will suffice for DVT prophylaxis Attestations Medical Necessity Statement*: Needs continued hospital stay for further IV diuresis secondary to anasarca, acute diastolic heart failure. Diagnoses Congestive heart failure I50.9 Respiratory failure with hypoxia and hypercapnia J96.91; J96.92 Hypokalemia E87.6 Acute encephalopathy G93.40 Morbid obesity E66.01 Tobacco dependency F17.200 Hyperglycemia R73.9 Pulmonary emboli I26.99 Time Spent (min) 28
[2022-12-05] MEDS: warfarin 6 mg Tablet 12 MG PO (14:55)
--- NOTE | 2022-12-05 18:11 | PC.NURSE ---
Patient has rested all of shift, refusing to get out of bed, I just can not put pressure on my foot it hurts. This nurse educated patient on importance of getting out of bed to chair. Chair and walker at bedside. Good UOP, rincon in place and patent with rincon care.
[2022-12-06] VITALS (30 sets, daily range): BP systolic 99–172; BP diastolic 57–89; PULSE 68–85; RESP 12–27; TEMP 36.2–36.7; O2SAT 86–100
[2022-12-06] MEDS: ipratropium-albuterol 3 mL Neb INHALATION ×6 (00:40→21:43)
[2022-12-06] MEDS: LORazepam 2 mg/mL INJ 1 mL 0.5 MG IVP (02:21)
[2022-12-06 06:25] LABS: Basophils # 0.1 10^3/uL (0.0-0.1); Basophils % 0.3 %; Eosinophils # 0.1 10^3/uL (0.0-0.8); Eosinophils % 0.8 %; Hematocrit 54.7 % (42.0-52.0); Hemoglobin 16.2 g/dL (11.7-16.6); Lymphocytes # 1.4 10^3/uL (0.8-4.8); Lymphocytes % 9.7 %; Mean Corpuscular HGB Conc 29.6 g/dL (30.0-36.0); Mean Corpuscular Hemoglobin 28.9 pg (28.0-34.0); Mean Corpuscular Volume 97.7 fl (80-94); Mean Platelet Volume 10.7 fL (7.4-10.4); Monocytes # 0.8 10^3/uL (0.2-0.9); Monocytes % 5.9 %; Neutrophils # 11.86 10^3/uL (1.8-7.7); Neutrophils % 82.8 %; Nucleated Red Blood Cells % 0 %; Platelet Count 281 10^3/cmm (130-400); Red Cell Distribution Width 18.5 % (12.1-15.1); White Blood Count 14.3 10^3/uL (4.0-10.0)
[2022-12-06 06:35] LABS: INR 2.92 (0.8-1.2)
[2022-12-06 06:42] LABS: Alanine Aminotransferase 12 U/L (0-41); Albumin Level 2.6 g/dL (3.5-5.2); Alkaline Phosphatase 161 U/L (40-130); Anion Gap 13.8 (5-19); Aspartate Amino Transferase 16 U/L (0-40); Blood Urea Nitrogen 15 mg/dL (6-20); Calcium 9.1 mg/dL (8.5-10.5); Carbon Dioxide 36 mmol/L (22-29); Chloride 91 mmol/L (98-107); Globulin 4.4 g/dL (1.3-4.6); Glomerular Filtration Rate 151.6 mL/min (90-130); Glucose 105 mg/dL (65-115); Magnesium 1.6 mg/dL (1.7-2.3); Osmolality Calculated 285 mOsm/kg (285-295); Potassium 3.8 mmol/L (3.5-5.1); Sodium 137 mmol/L (136-145); Total Bilirubin 0.9 mg/dL (0.15-1.2)
[2022-12-06] MEDS: metOLazone 5 MG Tablet 2.5 MG PO (08:08)
[2022-12-06] MEDS: doxycycline 100 mg Tablet PO ×2 (08:08→17:54)
[2022-12-06] MEDS: atorvastatin 40 mg Tablet PO (08:08)
[2022-12-06] MEDS: magnesium sulfate premix 2 GM/50 ML PIGGYBACK IV (08:08)
[2022-12-06] MEDS: FUROsemide 10 mg/mL SDV 4mL 40 MG IVP ×2 (08:08→21:15)
[2022-12-06] MEDS: predniSONE 20 mg Tablet 40 MG PO (08:08)
--- NOTE | 2022-12-06 08:49 | PM.PN ---
Subjective Subjective: Cj reports he is feeling better this morning. No chest pain. Less short of breath. I discussed with him the need to get up and out of bed, mobilize to determine if he could potentially be discharged tomorrow. Discharge services has visited with Domo regarding discharge needs. Trying to set up a trilogy at discharge. Medications: Reviewed: Yes Vitals/I&O/Wt Last Vital Signs Temp 97.2 F L 12/06/22 07:39 Pulse 70 12/06/22 06:00 Resp 18 12/06/22 06:00 BP 150/78 12/06/22 06:00 Pulse Ox 94 12/06/22 06:00 O2 Del Method BiPAP 12/06/22 03:57 O2 Flow Rate 4 12/05/22 20:12 FiO2 50 12/06/22 03:58 12/05/22 12/06/22 12/06/22 22:59 06:59 14:59 Intake Total 440 / 1084 300 / 1384 360 / 360 Output Total 1400 / 1400 3850 / 5250 Balance -960 / -316 -3550 / -3866 360 / 360 Weight last 48 hrs Weight 211.516 kg Weight 216.001 kg Physical Exam Narrative: General exam is an obese white male, distress. 3800 negative over the last 24 hours. Overall 12 L off since admission Neck is supple no lymphadenopathy thyromegaly Cardiovascular regular rate and rhythm, heart sounds distant Lungs wheezing noted today Abdomen is obese. Abdominal wall edema is noted. Cannot assess any organomegaly. Bowel sounds are noted. , Knight noted Extremities show 1+ edema bilaterally. Some wrinkles are starting to show in his legs Urinary Catheter Management: Knight: Cath Placed During This Visit: yes Reason for Continuing Indwelling Catheter: Accurate Measurement of Urinary Output in Critically Ill Patients Urinary Catheter Date of Insertion: 12/03/22 Data 12/06/22 06:00 12/06/22 06:00 Other Labs: INR therapeutic A&P Assessment and plan (1) Congestive heart failure: Patient presents with acute diastolic heart failure. Likely a large component of cor pulmonale as well. I suspect he has significant pulmonary hypertension Continue his Zaroxolyn Continue Lasix to 40 mg IV every 12 hours. He is diuresing appropriately Continue to check BMP daily, to monitor renal function and magnesium Considered echo, but this will be a significantly poor study considering his body habitus. Continue to treat him clinically Continue AVAPS at night. Trying to arrange for trilogy at discharge. (2) Respiratory failure with hypoxia and hypercapnia: Has significant acute hypoxemia and hypercapnia secondary to acute diastolic heart failure. He also has a smoking history. There is also a significant component of obesity hypoventilation. He also likely has pulmonary hypertension and cor pulmonale from previous DVT and PE. He presented with CO2 narcosis and hypercarbic respiratory failure. He is currently on AVAPS settings. He may be a candidate for trilogy. Overnight oximetry. Without respiratory support at night, I expect frequent recurrent hospitalizations and certainly high risk of and/or disability. Slow improvement (3) Hypokalemia: Normal today. Associated with hypomagnesemia. Supplement this again today. Repeat level tomorrow. (4) Acute encephalopathy: Secondary to CO2 retention This has now resolved TSH has recently been checked and normal (5) Morbid obesity: Encourage weight loss Contributes to obesity hypoventilation (6) Tobacco dependency: Has known tobacco dependency. Cannot rule out COPD as a component. DuoNeb every 4 hours, budesonide. Secondary to wheezing, steroids and doxycycline added. Steroids also added for secondary concern of gout patient also reports this is symptomatically improved. (7) Hyperglycemia: Patient has hyperglycemia. A1c is elevated. Blood sugar this morning is normal. Placed on consistent carb diet. Outpatient diabetic education. Consider metformin at discharge. A1c was 7.4%. (8) Pulmonary emboli: Past history of DVT and PE. Continue Coumadin. Pharmacy to adjust dosing as needed. Pharmacy consult for this. INR daily. Probable gout. Prednisone initiated Plan Multiple other medical problems as outlined in past medical history. Full code currently Coumadin will suffice for DVT prophylaxis Attestations Medical Necessity Statement*: Needs continued hospital stay for further diuresis for his anasarca and acute diastolic heart failure exacerbation. Trying to arrange trilogy on discharge. Potential discharge in the next 1 to 2 days. Diagnoses Congestive heart failure I50.9 Respiratory failure with hypoxia and hypercapnia J96.91; J96.92 Hypokalemia E87.6 Acute encephalopathy G93.40 Morbid obesity E66.01 Tobacco dependency F17.200 Hyperglycemia R73.9 Pulmonary emboli I26.99 Time Spent (min) 21
[2022-12-06] MEDS: budesonide 0.5 mg/2 mL Neb INHALATION ×2 (09:23→21:43)
[2022-12-06] MEDS: warfarin 5 mg Tablet 10 MG PO (14:57)
--- NOTE | 2022-12-06 15:40 | W.PM.EVENTAC ---
Event Note Event Note: Non-invasive ventilator is being ordered for this patient's chronic severe hypercarbic and hypoxic respiratory failure associated with obesity hypoventilation and COPD. Without this, he will continue to have frequent readmissions and higher risk of and or permanent disability. BIPAP is not appropriate and has been tried and failed.
--- NOTE | 2022-12-06 17:33 | PC.NURSE ---
Report called to CAMILO Watkins. [facility] with belongings by this nurse. Patient AAOx4, no apparent distress, 0/10 pain.
[2022-12-06] MEDS: acetaminophen 325 mg Tablet 650 MG PO (23:53)
[2022-12-07] VITALS (13 sets, daily range): BP systolic 123–160; BP diastolic 65–81; PULSE 67–89; RESP 14–20; TEMP 36.6–36.9; O2SAT 87–93
[2022-12-07] MEDS: ipratropium-albuterol 3 mL Neb INHALATION ×4 (01:30→11:50)
[2022-12-07 04:21] LABS: INR 2.95 (0.8-1.2)
[2022-12-07 04:40] LABS: Blood Urea Nitrogen 17 mg/dL (6-20); Calcium 9.4 mg/dL (8.5-10.5); Carbon Dioxide 39 mmol/L (22-29); Chloride 90 mmol/L (98-107); Glomerular Filtration Rate 126.9 mL/min (90-130); Glucose 81 mg/dL (65-115); Magnesium 1.6 mg/dL (1.7-2.3); Osmolality Calculated 287 mOsm/kg (285-295); Sodium 138 mmol/L (136-145)
[2022-12-07 04:41] LABS: Anion Gap 13.3 (5-19); Potassium 4.3 mmol/L (3.5-5.1)
[2022-12-07] MEDS: magnesium sulfate premix 4 GM/100 ML PREMIX IV (08:13)
[2022-12-07] MEDS: atorvastatin 40 mg Tablet PO (08:14)
[2022-12-07] MEDS: metOLazone 5 MG Tablet 2.5 MG PO (08:14)
[2022-12-07] MEDS: predniSONE 20 mg Tablet 40 MG PO (08:14)
[2022-12-07] MEDS: FUROsemide 10 mg/mL SDV 4mL 40 MG IVP (08:14)
[2022-12-07] MEDS: doxycycline 100 mg Tablet PO (08:14)
[2022-12-07] MEDS: budesonide 0.5 mg/2 mL Neb INHALATION (09:08)
--- NOTE | 2022-12-07 11:29 | PM.PN ---
Subjective Subjective: Feeling better. Still requiring more oxygen than at his baseline of 2 L. No chest pain. Feels like swelling is much improved. Denies any ankle pain Medications: Reviewed: Yes Vitals/I&O/Wt Last Vital Signs Temp 98.4 F 12/07/22 03:41 Pulse 67 12/07/22 09:58 Resp 20 H 12/07/22 09:58 BP 160/75 12/07/22 09:58 Pulse Ox 91 12/07/22 09:58 O2 Del Method Nasal Cannula 12/07/22 09:08 O2 Flow Rate 5 12/07/22 09:08 FiO2 40 12/07/22 08:00 12/06/22 12/07/22 12/07/22 22:59 06:59 14:59 Intake Total 240 / 890 240 / 1130 100 / 100 Output Total 2150 / 4300 2400 / 6700 Balance -1910 / -3410 -2160 / -5570 100 / 100 Weight last 48 hrs Weight 211.516 kg Physical Exam Narrative: General exam is an obese white male, distress. 3600 negative. Overall approximately 18 L off Neck is supple no lymphadenopathy thyromegaly Cardiovascular regular rate and rhythm, heart sounds distant Lungs improved aeration Abdomen is obese. Abdominal wall edema is noted. Cannot assess any organomegaly. Bowel sounds are noted. Eugene WALKER noted Extremities show 1+ edema bilaterally. Some wrinkles are starting to show in his legs Urinary Catheter Management: Knight: Cath Placed During This Visit: yes Reason for Continuing Indwelling Catheter: Acute Urinary Retention or Obstruction Urinary Catheter Date of Insertion: 12/03/22 Data 12/06/22 06:00 12/07/22 03:01 A&P Assessment and plan (1) Congestive heart failure: Patient presents with acute diastolic heart failure. Likely a large component of cor pulmonale as well. I suspect he has significant pulmonary hypertension Continue his Zaroxolyn Continue Lasix to 40 mg IV every 12 hours. He is diuresing appropriately. Changed to 40 mg IV q. 24 Continue to check BMP daily, to monitor renal function and magnesium. His renal function currently stable Considered echo, but this will be a significantly poor study considering his body habitus. Continue to treat him clinically Continue AVAPS at night. Trying to arrange for trilogy at discharge. If he does not have this at discharge I suspect that he will be readmitted within 48 to 72 hours. (2) Respiratory failure with hypoxia and hypercapnia: Has significant acute hypoxemia and hypercapnia secondary to acute diastolic heart failure. He also has a smoking history. There is also a significant component of obesity hypoventilation. He also likely has pulmonary hypertension and cor pulmonale from previous DVT and PE. He presented with CO2 narcosis and hypercarbic respiratory failure. He is currently on AVAPS settings. He may be a candidate for trilogy. Overnight oximetry. Without respiratory support at night, I expect frequent recurrent hospitalizations and certainly high risk of and/or disability. Slow improvement (3) Hypokalemia: Normal today. Associated with hypomagnesemia. Supplement this again today. Repeat level tomorrow. (4) Acute encephalopathy: Secondary to CO2 retention This has now resolved TSH has recently been checked and normal (5) Morbid obesity: Encourage weight loss Contributes to obesity hypoventilation (6) Tobacco dependency: Has known tobacco dependency. Cannot rule out COPD as a component. DuoNeb every 4 hours, budesonide. Secondary to wheezing, steroids and doxycycline added. Steroids also added for secondary concern of gout patient also reports this is symptomatically improved. Likely can discontinue prednisone tomorrow (7) Hyperglycemia: Patient has hyperglycemia. A1c is elevated. Blood sugar this morning is normal. Placed on consistent carb diet. Outpatient diabetic education. Consider metformin at discharge. A1c was 7.4%. (8) Pulmonary emboli: Past history of DVT and PE. Continue Coumadin. Pharmacy to adjust dosing as needed. Pharmacy consult for this. INR daily. Probable gout. Prednisone initiated. Probably can discontinue tomorrow Plan Multiple other medical problems as outlined in past medical history. Full code currently Coumadin will suffice for DVT prophylaxis Attestations Medical Necessity Statement*: Needs continued diuresis secondary to congestive heart failure with IV diuretics Diagnoses Congestive heart failure I50.9 Respiratory failure with hypoxia and hypercapnia J96.91; J96.92 Hypokalemia E87.6 Acute encephalopathy G93.40 Morbid obesity E66.01 Tobacco dependency F17.200 Hyperglycemia R73.9 Pulmonary emboli I26.99 Time Spent (min) 23
[2022-12-07] MEDS: warfarin 10 mg Tablet PO (14:41)
--- NOTE | 2022-12-07 15:06 | P.DS_ITS ---
Discharge Providers Date of Admission: 12/03/22 15:35 Date of Discharge: December 07, 2022 Attending Provider at Admission: Srinivas Lunsford MD Attending Provider at Discharge: Srinivas Lunsford MD Primary Care Provider: Desirae Corrales NP Diagnoses at Discharge Discharge Diagnosis (1) Congestive heart failure: Status: Acute (2) Respiratory failure with hypoxia and hypercapnia: Status: Acute (3) Hypokalemia: Status: Acute (4) Acute encephalopathy: Status: Acute (5) Morbid obesity: Status: Acute (6) Tobacco dependency: Status: Acute (7) Hyperglycemia: Status: Acute (8) Pulmonary emboli: Status: Acute Reason for Visit Reason for Visit: Swelling, SOB Hospital Course Hospital Course Cj is a 36-year-old white male with chronic respiratory failure with hypercarbia and hypoxia who presented to the emergency department with increased shortness of breath, swelling, and sleepiness. He was found to have CO2 narcosis, anasarca, acute diastolic heart failure, and acute on chronic respiratory failure. He was initially admitted to the ICU. IV diuresis was initiated. He failed BiPAP and required AVAPS for improvement in his respiratory status. During his hospital stay his mental status completely cleared. He had appropriate diuresis, and by the end of his hospital stay he had diuresed 20 L. There were attempts to get him a noninvasive ventilator as this could reduce hospital stays and improve his respiratory status, however there were some obstacles getting prior authorization from insurance. On December 06, the patient reported that he was going home. He had been informed it may take as long as a week to get his noninvasive ventilator. He stated he would go against advice, if he was not discharged. I came to his room and talked with him about the risks and benefits of discharge, without the noninvasive ventilator, including and/or disability. He was adamant that he be discharged despite these risks and had good decisional capacity to understand them. Secondary to this, I arranged for discharge. He will get a home O2 evaluation. He will take a few more days of doxycycline, and prednisone. He received instructions on CHF, with daily weights, fluid restriction, salt restriction. I encouraged him to lose weight, and not smoke. I will arrange follow-up with the primary care provider in 3 to 5 days, pulmonary in 2 weeks. He was amenable to receiving discharge instructions, and follow-up. He will need an INR on follow-up with his primary care provider. Physical Exam Narrative: See exam done earlier today Urinary Catheter Management: Knight: Cath Placed During This Visit: yes Reason for Continuing Indwelling Catheter: Acute Urinary Retention or Obstruction Urinary Catheter Date of Insertion: 12/03/22 Discharge Data Studies Completed and Pending Completed Studies During Hospitalization Category Date Time Status XR ankle RT 2V [id number] Routine Exams 12/04/22 12:34 Completed XR chest 1V portable [id number] Urgent Exams 12/03/22 09:12 Completed Pending at discharge Category Date Time Status BMP [Basic Metabolic Panel] AM LABS Lab 12/08/22 04:00 Ordered Blood Culture Stat Lab 12/03/22 16:03 Results CBC Auto Diff [Complete Blood Count w/Auto] AM LABS Lab 12/08/22 04:00 Ordered Magnesium AM LABS Lab 12/08/22 04:00 Ordered Prothrombin Time INR AM LABS Lab 12/08/22 04:00 Ordered Radiology Impressions Chest X-Ray 12/03/22 09:12 IMPRESSION: No acute cardiopulmonary abnormality. Ankle X-Ray 12/04/22 12:34 IMPRESSION: No acute bony abnormalities. Laboratory Results WBC 14.3 10^3/uL (4.0-10.0) H 12/06/22 06:00 RBC 5.60 10^6/uL (4.1-5.3) H 12/06/22 06:00 Hgb 16.2 g/dL (11.7-16.6) 12/06/22 06:00 Hct 54.7 % (42.0-52.0) H 12/06/22 06:00 MCV 97.7 fl (80-94) H 12/06/22 06:00 MCH 28.9 pg (28.0-34.0) 12/06/22 06:00 MCHC 29.6 g/dL (30.0-36.0) L 12/06/22 06:00 RDW 18.5 % (12.1-15.1) H 12/06/22 06:00 Plt Count 281 10^3/cmm (130-400) 12/06/22 06:00 MPV 10.7 fL (7.4-10.4) H 12/06/22 06:00 Neut % (Auto) 82.8 % 12/06/22 06:00 Lymph % (Auto) 9.7 % 12/06/22 06:00 [place] % (Auto) 5.9 % 12/06/22 06:00 Eos % (Auto) 0.8 % 12/06/22 06:00 Baso % (Auto) 0.3 % 12/06/22 06:00 Neut # (Auto) 11.86 10^3/uL (1.8-7.7) H 12/06/22 06:00 Lymph # (Auto) 1.4 10^3/uL (0.8-4.8) 12/06/22 06:00 [place] # (Auto) 0.8 10^3/uL (0.2-0.9) 12/06/22 06:00 Eos # (Auto) 0.1 10^3/uL (0.0-0.8) 12/06/22 06:00 Baso # (Auto) 0.1 10^3/uL (0.0-0.1) 12/06/22 06:00 Nucleated RBC % (auto) 0 % 12/06/22 06:00 Nucleated RBCs # 0.0 /100WBC 12/06/22 06:00 PT 31.90 SECONDS (12.1-14.9) H 12/07/22 03:01 INR 2.95 (0.8-1.2) H 12/07/22 03:01 Specimen Type Arterial 12/03/22 10:46 Sample Site Radial, right 12/03/22 10:46 ABG pH 7.37 (7.35-7.45) 12/03/22 10:46 ABG pCO2 76.2 mmHg (35-45) H* 12/03/22 10:46 ABG pO2 87.6 mmHg (80.0-100.0) 12/03/22 10:46 ABG HCO3 44.5 mmol/L (22-26) H 12/03/22 10:46 ABG O2 Saturation 94.2 12/03/22 09:52 ABG Base Excess 14.4 mmol/L (-2.0-2.0) H 12/03/22 10:46 Ilan Test Pos 12/03/22 10:46 A-a O2 Gradient 9.7 mmHg (5-10) 12/03/22 09:52 Hematocrit 52.1 % (42-52) H 12/03/22 10:46 Hgb O2 Saturation 86.1 % (95-100) L 12/03/22 09:52 Carboxyhemoglobin 8.3 %THgb (0.4-20.1) 12/03/22 09:52 Methemoglobin 0.3 % (0.4-1.5) L 12/03/22 09:52 Total Hemoglobin 16.6 g/dL (14-18) 12/03/22 09:52 Sodium 137.0 mmol/L (131-143) 12/03/22 09:52 Potassium 3.3 mmol/L (3.5-5.0) L 12/03/22 09:52 Glucose 131.0 mg/dL (70-115) H 12/03/22 09:52 Ionized Calcium 1.2 mmol/L (1.1-1.4) 12/03/22 09:52 O2 Delivery Device Bipap 12/03/22 10:46 O2 Liters/Min 3.0 % 12/03/22 09:52 FiO2 50.0 % 12/03/22 10:46 Fine Hairer ID Monro 12/03/22 10:46 Sodium 138 mmol/L (136-145) 12/07/22 03:01 Potassium 4.3 mmol/L (3.5-5.1) 12/07/22 03:01 Chloride 90 mmol/L (98-107) L 12/07/22 03:01 Carbon Dioxide 39 mmol/L (22-29) H 12/07/22 03:01 Anion Gap 13.3 (5-19) 12/07/22 03:01 BUN 17 mg/dL (6-20) 12/07/22 03:01 Creatinine 0.7 mg/dL (0.7-1.2) 12/07/22 03:01 GFR Calculation 126.9 mL/min (90-130) 12/07/22 03:01 Glucose 81 mg/dL (65-115) 12/07/22 03:01 Estimat Average Glucose 166 12/03/22 09:22 Hemoglobin A1c 7.4 % (4.0-6.0) H 12/03/22 09:22 Calculated Osmolality 287 mOsm/kg (285-295) 12/07/22 03:01 Lactic Acid 2.0 mmol/L (0.5-2.2) 12/03/22 09:22 Uric Acid 12.2 mg/dL (3.4-7.0) H 12/03/22 04:30 Calcium 9.4 mg/dL (8.5-10.5) 12/07/22 03:01 Magnesium 1.6 mg/dL (1.7-2.3) L 12/07/22 03:01 Total Bilirubin 0.9 mg/dL (0.15-1.2) 12/06/22 06:00 AST 16 U/L (0-40) 12/06/22 06:00 ALT 12 U/L (0-41) 12/06/22 06:00 Alkaline Phosphatase 161 U/L (40-130) H 12/06/22 06:00 Troponin T Baseline 18 ng/L (0-15) H 12/03/22 09:22 Troponin T 120 Minute 17.01 ng/L (0-15) H 12/03/22 11:25 Delta Troponin T -0.99 ABS# (0-10) L 12/03/22 11:25 Troponin T Hi Sens 6Hr 17.32 ng/L (0-15) H 12/03/22 15:55 Troponin T Hi Sens 6Hr Delta -0.68 ng/L (0-12) L 12/03/22 15:55 C-Reactive Protein 37.6 mg/L (0.0-4.9) H 12/03/22 09:22 NT-Pro-B Natriuret Pep 2136 pg/mL (0-125) H 12/03/22 09:22 Total Protein 7.0 g/dL (6.6-8.7) 12/06/22 06:00 Albumin 2.6 g/dL (3.5-5.2) L 12/06/22 06:00 Globulin 4.4 g/dL (1.3-4.6) 12/06/22 06:00 Urine Color Yellow (Yellow) 12/03/22 16:40 Urine Appearance Clear (CLEAR) 12/03/22 16:40 Urine pH 6.5 (5-7) 12/03/22 16:40 Ur Specific [place] 1.010 (1.005-1.030) 12/03/22 16:40 Urine Protein 2+ (Negative) H 12/03/22 16:40 Urine Glucose (UA) Norm (Normal) 12/03/22 16:40 Urine Ketones Negative (Negative) 12/03/22 16:40 Urine Blood 3+ (Negative) H 12/03/22 16:40 Urine Nitrate Negative (Negative) 12/03/22 16:40 Urine Bilirubin Neg (Negative) 12/03/22 16:40 Urine Urobilinogen Norm mg/dL (Negative) 12/03/22 16:40 Ur Leukocyte Esterase Negative (Negative) 12/03/22 16:40 Urine RBC 5-10 /hpf (0-2) H 12/03/22 16:40 Urine WBC None /hpf (0-5) 12/03/22 16:40 Ur Squamous Epith Cells None /hpf (0-5) 12/03/22 16:40 Amorphous Sediment Not Reportable 12/03/22 16:40 Urine Bacteria Trace /hpf (NONE) 12/03/22 16:40 Urine Mucus Trace /hpf 12/03/22 16:40 Vitals Last Vital Signs Temp 98.4 F 12/07/22 03:41 Pulse 85 12/07/22 13:11 Resp 16 12/07/22 13:11 BP 123/65 12/07/22 13:11 Pulse Ox 89 L 12/07/22 13:11 O2 Del Method Nasal Cannula 12/07/22 11:50 O2 Flow Rate 5 12/07/22 11:50 FiO2 40 12/07/22 08:00 Discharge Plan Discharge Patient Disposition: Home Condition: Stable Prescriptions: New budesonide 0.5 mg/2 mL Suspension For Nebulization 0.5 mg inhalation BID.RESPIRATORY Qty: 120 0RF doxycycline monohydrate 100 mg Tablet 100 mg PO BID Qty: 10 0RF ipratropium-albuterol 0.5 mg-3 mg(2.5 mg base)/3 mL solution for nebulization 3 ml inhalation QID Qty: 180 0RF prednisone 20 mg Tablet 40 mg PO DAILY Qty: 4 0RF metformin 500 mg tablet 500 mg PO BID Qty: 60 0RF Continued albuterol sulfate [ProAir HFA] 90 mcg/actuation HFA aerosol inhaler 2 puff inhalation 6XD PRN (Reason: shortness of breath or wheezing) 30 Days Qty: 8.5 3RF loratadine [Allergy Relief (loratadine)] 10 mg tablet 10 mg PO DAILY PRN (Reason: Allergy Symptoms) metolazone 5 mg tablet 2.5 mg PO DAILY Qty: 45 1RF atorvastatin 40 mg tablet 40 mg PO DAILY Qty: 90 1RF bumetanide 2 mg tablet 2 mg PO DAILY warfarin 10 mg tablet See Rx Instructions .ROUTE .COMPLEX Rx Instructions: 10 mg orally ON MON, AND SAT Jantoven 6 mg tablet See Rx Instructions .ROUTE .COMPLEX Rx Instructions: 6 mg ON SUN, TH, FRI, AND SAT Discharge Orders: Discharge Order (Routine); Ordered 12/07/22 Ordered By: Srinivas Lunsford Other Ambulatory Orders: DME: Nebulizer with Neb Kit (Order) Location: None Selected Ordered By: Srinivas Lunsford DME: Non-Invasive Vent (Order) Location: None Selected Ordered By: Srinivas Lunsford DME: Walker (Order) Location: None Selected Ordered By: Srinivas Lunsford Referrals: Ayush Caruso MD [Physician] - 2 weeks (Chronic respiratory failure, obesity hypoventilation) Desirae Corrales NP [Primary Care Provider] - 4-7 days (INR on follow-up) Discharge Diet: Cardiac and Diabetic Discharge Activity: Increase activity as tolerated Patient Instructions: Doxycycline (By mouth) (Acticlate, Adoxa, Avidoxy, Monodox, Doryx), Ipratropium (By breathing) (Atrovent HFA), Prednisone (By mouth) (predniSONE Intensol, Prednicot, Deltasone, Brennen), Budesonide (Into the nose) (Rhinocort, Rhinocort Aqua), Metformin (By mouth) (Glucophage, Glucophage XR, Fortamet,..., Heart Failure (DC), CHF Stoplight, Opioid Safety Activity Restrictions/Additional Instructions: May discharge after home oxygen evaluation. Your blood sugar was elevated during your hospital stay. Consistent carb diet. Initiate metformin. Follow-up with your primary care provider in 3 to 5 days. Follow-up with pulmonary in 2 weeks Note that a trilogy was ordered for you. Follow-up with Domo regarding this. Return for any concerns Low-salt diet. Fluid restriction of 1500 cc/day. Call physician if greater than 2 to 3 pound weight gain 2 days in a row or worsening symptoms of fluid overload Discharge Attestations Time Spent in Discharge Care*: greater than 30 min Status at Discharge: Cognitive status at discharge: cognitively intact , Behavioral status at discharge: cooperative , Quality Metrics Clinical Quality Measures [ No reported AMI, CVA or VTE this stay] Coding Level of Care Code 38713 Total time (in minutes) for Discharge: 39 Diagnoses Congestive heart failure I50.9 Respiratory failure with hypoxia and hypercapnia J96.91; J96.92 Hypokalemia E87.6 Acute encephalopathy G93.40 Morbid obesity E66.01 Tobacco dependency F17.200 Hyperglycemia R73.9 Pulmonary emboli I26.99
== END 2022-12-07 18:13 | disposition home or self-care (01) | DRG 291 ==
LOC: ER 10:34 → ICU 12:13 → CSU 12-06 17:45
PROVIDERS: Physician Assistant; Admitting Provider Internal Medicine; Emergency Provider Family Medicine; PCP Nurse Practitioner Family; Visit Provider Internal Medicine
DX: I11.0 Hypertensive heart disease with heart failure (principal); I50.33 Acute on chronic diastolic (congestive) heart failure; J96.21 Acute and chronic respiratory failure with hypoxia; J96.22 Acute and chronic respiratory failure with hypercapnia; E66.2 Morbid (severe) obesity with alveolar hypoventilation; Z68.44 Body mass index [BMI] 60.0-69.9, adult; G93.40 Encephalopathy, unspecified; Z79.51 Long term (current) use of inhaled steroids; Z79.01 Long term (current) use of anticoagulants; Z99.81 Dependence on supplemental oxygen; Z86.718 Personal history of other venous thrombosis and embolism; Z86.711 Personal history of pulmonary embolism; F17.200 Nicotine dependence, unspecified, uncomplicated; I27.81 Cor pulmonale (chronic); I27.20 Pulmonary hypertension, unspecified; E87.6 Hypokalemia; R73.9 Hyperglycemia, unspecified; M25.571 Pain in right ankle and joints of right foot; E83.42 Hypomagnesemia
CPT/HCPCS: 36415; 36600; 51702; 71045; 73600; 80048; 80051; 80053; 81001; 82330; 82803; 82805; 83036; 83605; 83735; 83880; 84484; 84550; 85025; 85610; 86140; 87040; 93005; 94640; 94660; 94760; 94762; 96365; 96375; 96376; 99291; J1940; J2060; J3475; J3480; J7512; J7626

== ENCOUNTER → 2022-12-13 09:49 | Outpatient (BNVA) | payer MEDICAID, SELFPAY | PROVIDERS: PCP Nurse Practitioner Family; Visit Provider Nurse Practitioner Family | DX: Z79.01 Long term (current) use of anticoagulants (principal) | CPT/HCPCS: 85610 ==

== ENCOUNTER → 2023-01-16 15:47 | Outpatient (BNVA) | payer MEDICAID, SELFPAY | PROVIDERS: PCP Nurse Practitioner; Visit Provider Nurse Practitioner Family | DX: I26.99 Other pulmonary embolism without acute cor pulmonale (principal); I50.9 Heart failure, unspecified | CPT/HCPCS: 85610 ==

== ENCOUNTER → 2023-02-19 10:54 | Outpatient (BNVA) | payer MEDICAID, SELFPAY | PROVIDERS: PCP Nurse Practitioner; Visit Provider Nurse Practitioner Family | DX: R05.9 Cough, unspecified (principal); I48.91 Unspecified atrial fibrillation | CPT/HCPCS: 85610; 87400; 87426 ==

== ENCOUNTER → 2023-02-26 10:51 | Outpatient (BNVA) | payer MEDICAID, SELFPAY | PROVIDERS: PCP Nurse Practitioner Family; Visit Provider Nurse Practitioner Family | DX: Z79.01 Long term (current) use of anticoagulants (principal); Z86.69 Personal history of other diseases of the nervous system and sense organs | CPT/HCPCS: 85610 ==

== ENCOUNTER → 2023-03-26 10:35 | Outpatient (BNVA) | payer MEDICAID, SELFPAY | PROVIDERS: PCP Nurse Practitioner Family; Visit Provider Nurse Practitioner Family | DX: Z79.01 Long term (current) use of anticoagulants (principal); I50.9 Heart failure, unspecified; E11.9 Type 2 diabetes mellitus without complications; J44.9 Chronic obstructive pulmonary disease, unspecified; E78.5 Hyperlipidemia, unspecified | CPT/HCPCS: 80053; 80061; 83036; 85610 ==

== ENCOUNTER → 2023-07-02 11:30 | Outpatient (BNVA) | payer MEDICAID, SELFPAY | PROVIDERS: PCP Nurse Practitioner Family; Visit Provider Nurse Practitioner Family | DX: Z79.01 Long term (current) use of anticoagulants (principal) | CPT/HCPCS: 85610 ==

== ENCOUNTER → 2023-07-09 10:30 | Outpatient (BNVA) | payer MEDICAID, SELFPAY | PROVIDERS: PCP Nurse Practitioner Family; Visit Provider Nurse Practitioner Family | DX: Z79.01 Long term (current) use of anticoagulants (principal) | CPT/HCPCS: 85610 ==

== ENCOUNTER → 2023-07-15 11:15 | Outpatient (BNVA) | payer MEDICAID, SELFPAY | PROVIDERS: PCP Nurse Practitioner Family; Visit Provider Family Medicine | DX: M10.9 Gout, unspecified (principal) | CPT/HCPCS: 84550 ==

== ENCOUNTER → 2024-01-20 09:25 | Outpatient (BNVA) | payer MEDICAID, SELFPAY | PROVIDERS: PCP Nurse Practitioner Family; Visit Provider Family Medicine | DX: E55.9 Vitamin D deficiency, unspecified (principal); I50.9 Heart failure, unspecified; E78.5 Hyperlipidemia, unspecified; Z79.01 Long term (current) use of anticoagulants; E11.9 Type 2 diabetes mellitus without complications; G47.33 Obstructive sleep apnea (adult) (pediatric); R79.89 Other specified abnormal findings of blood chemistry | CPT/HCPCS: 80053; 80061; 82306; 82607; 83735; 83880; 84439; 84443; 85025; 85610 ==

== ENCOUNTER → 2024-02-26 09:15 | Outpatient (BNVA) | payer MEDICAID, SELFPAY | PROVIDERS: PCP Nurse Practitioner Family; Visit Provider Family Medicine | DX: Z79.01 Long term (current) use of anticoagulants (principal); E87.6 Hypokalemia; I82.441 Acute embolism and thrombosis of right tibial vein; T50.2X5A Adverse effect of carbonic-anhydrase inhibitors, benzothiadiazides and other diuretics, initial encounter; X58.XXXA Exposure to other specified factors, initial encounter; I27.82 Chronic pulmonary embolism | CPT/HCPCS: 80048; 85610 ==

== ENCOUNTER → 2024-09-18 09:07 | Outpatient (BNVA) | payer MEDICARE, MEDICAID, SELFPAY | PROVIDERS: PCP Nurse Practitioner Family; Visit Provider Nurse Practitioner Family | DX: Z79.01 Long term (current) use of anticoagulants (principal) | CPT/HCPCS: 85610 ==

== ENCOUNTER 2024-09-22 10:09 | Outpatient (CLI) | payer MEDICARE, MEDICAID, SELFPAY ==
--- NOTE | 2024-09-22 10:00 | USCV_ITS ---
Cj Conrad Age: 38 Gender: M : 1985 Exam Date: 09/22/2024 10:21 Ordering Phys: Desirae Corrales NP Technologist: OBI [place] [facility] [place]: Right sided heart failure BP: 155 / 85 HR: 84 Rhythm: Sinus Technical Quality: Adequate MEASUREMENTS (Male / Female) Normal Values 2D ECHO LV Diastolic Diameter PLAX 5.1 cm 4.2 - 5.9 / 3.9 - 5.3 cm IVS Diastolic Thickness 1.2 cm 0.6 - 1.0 / 0.6 - 0.9 cm IVS Systolic Thickness 2.0 cm LVPW Diastolic Thickness 1.0 cm 0.6 - 1.0 / 0.6 - 0.9 cm LVPW Systolic Thickness 1.5 cm LVOT Diameter 2.1 cm LV Ejection Fraction 2D Teich 52.7 % LV Ejection Fraction MOD 4C 63.1 % LV Ejection Fraction MOD 2C 56.9 % LV Ejection Fraction 2C AL 57.3 % LA Diameter 3.6 cm RA Systolic Volume 4C AL 33.8 ml RA Systolic Volume 4C MOD 31.5 ml LA Sys Volume AL 63.7 cm cubed LA Sys Volume Index AL 19.7 cm cubed/m squared Aorta at Sinotubular Diameter 2.8 cm M-MODE LA Ao Ratio MM 1.5 AV Cusp Separation MM 1.3 cm DOPPLER AV Peak Velocity 92.0 cm/s LVOT Peak Velocity 105.0 cm/s AV Area Cont Eq vti 3.9 cm squared AV Area Cont Eq pk 3.9 cm squared MV Peak Velocity 57.0 cm/s MV Area PHT 5.0 cm squared Mitral E to A Ratio 0.9 TR Peak Velocity 222.0 cm/s TR Peak Gradient 19.7 mmHg TV Peak E Velocity 76.0 cm/s PV Peak Velocity 117.0 cm/s FINDINGS Left Ventricle Normal left ventricular size and systolic function, EF 57%.. No regional wall motion abnormalities. Right Ventricle The right ventricle appears to be normal size ejection fraction. Right Atrium Normal right atrial size. Left Atrium Normal left atrial size. Mitral Valve No gross abnormalities noted Aortic Valve The aortic leaflets could not be visualized well Tricuspid Valve No gross abnormalities noted. The PA pressure could not be calculated because of the poor Doppler signals Pulmonic Valve Pulmonic valve not well visualized. Pericardium No pericardial effusion. Aorta Normal aortic annulus size. IVC Inferior vena cava not visualized. CONCLUSIONS Normal left ventricular size and systolic function, EF 57%.. No regional wall motion abnormalities. The right ventricle appears to be normal size ejection fraction. The PA pressure could not be calculated because of the poor Doppler signals. There is no pericardial effusion. The aortic leaflets could not be visualized well. Technically somewhat difficult study because of the poor ultrasonic window. Dr Tip Jose MD FACC (Electronically Signed) Final Date: 24 September 2024 22:45 S
== END 2024-09-22 10:10 | disposition home or self-care (01) ==
LOC: RAD 10:10
PROVIDERS: PCP Nurse Practitioner Family; Visit Provider Nurse Practitioner Family
DX: I50.813 Acute on chronic right heart failure (principal); R06.09 Other forms of dyspnea
CPT/HCPCS: 93306

== ENCOUNTER 2024-09-24 15:08 | Outpatient (CLI) | payer MEDICARE, MEDICAID, SELFPAY ==
--- NOTE | 2024-09-24 15:11 | CT_ITS ---
WS: [id number] CT CHEST ANGIOGRAPHY WITH REFORMATS HISTORY: I50.812 - Chronic right heart failure TECHNIQUE: Contiguous axial images are obtained through the chest during arterial injection of intravenous contrast. Images are reconstructed to evaluate the pulmonary arteries. MIP imaging also reviewed. All CT scans at [facility] use at least one of these dose optimization techniques: automated exposure control; mA and/or kV adjustment per patient size (includes targeted exams where dose is matched to clinical indication); or iterative reconstruction. CONTRAST: Omnipaque 350; 100 mL IV. DLP: 759.48 mGy.cm COMPARISON: 01/05/2021 Limited opacification of the pulmonary arteries due to poor bolus. No central pulmonary artery filling defect. Beyond the lobar branches the opacification is suboptimal. In part this may be due to body habitus. There is very mild RIGHT heart strain. Normal size thoracic aorta. No mediastinal or hilar adenopathy. Lungs are clear. No pneumonia. No pleural or pericardial effusions. There is mild hazy attenuation which is probably artifact from body habitus and breathing. Liver is markedly enlarged with diffuse hepatic steatosis. Negative gallbladder. No adrenal mass. Thoracic spondylosis. CT/CT angio chest PE protcl [id number] IMPRESSION: 1. Suboptimal evaluation of the pulmonary arteries due to body habitus and poo r bolus injection. No central pulmonary embolism through the lobar branches. 2. No pneumonia. 3. Very minimal RIGHT heart strain. 4. Normal size aorta. 5. Marked hepatomegaly and hepatic steatosis.
== END 2024-09-24 15:09 | disposition home or self-care (01) ==
PROVIDERS: PCP Nurse Practitioner Family; Visit Provider Nurse Practitioner Family
DX: I50.812 Chronic right heart failure (principal); Z86.711 Personal history of pulmonary embolism; I50.9 Heart failure, unspecified; R06.09 Other forms of dyspnea; R16.0 Hepatomegaly, not elsewhere classified; K76.0 Fatty (change of) liver, not elsewhere classified; R91.8 Other nonspecific abnormal finding of lung field; M47.896 Other spondylosis, lumbar region
CPT/HCPCS: 71275

== ENCOUNTER 2024-09-25 14:49 | Outpatient (CLI) | payer MEDICARE, MEDICAID, SELFPAY ==
--- NOTE | 2024-09-25 15:00 | USCV_ITS ---
Cj Conrad Age: 38 Gender: M : 1985 Exam Date: 09/25/2024 15:04 Ordering Phys: Desirae Corrales NP Technologist: OBI [place] [facility] [place]ication: h/o DVT. on Warfarin therapy HISTORY: History of deep venous thrombosis. PROCEDURES: Venous duplex imaging was performed in bilateral lower extremities. The following venous structures were evaluated: common femoral vein, profunda vein, proximal portion of the greater saphenous vein, superficial femoral vein, and the popliteal vein. In addition, the posterior tibial and peroneal trunk were evaluated. Serial compression, augmentation maneuvers, and spectral Doppler flow evaluation were performed. FINDINGS: No evidence of DVT seen in any vessel visualized at this time. CONCLUSIONS No evidence of right lower extremity DVT. No evidence of left lower extremity DVT. Herrera Lopez MD (Electronically Signed) Final Date: 25 September 2024 15:50 S
== END 2024-09-25 14:50 | disposition home or self-care (01) ==
LOC: RAD 14:50
PROVIDERS: PCP Nurse Practitioner Family; Visit Provider Nurse Practitioner Family
DX: I87.2 Venous insufficiency (chronic) (peripheral) (principal); R60.0 Localized edema
CPT/HCPCS: 93970

== ENCOUNTER 2024-11-05 14:41 | Oncology outpatient (recurring) (ONCR) | payer MEDICARE, MEDICAID, SELFPAY ==
[2024-11-05 15:10] LABS: INR 1.13 (0.8-1.2)
== END 2024-11-30 23:59 | disposition home or self-care (01) ==
PROVIDERS: PCP Nurse Practitioner Family; Visit Provider Internal Medicine
DX: Z86.711 Personal history of pulmonary embolism (principal); Z79.01 Long term (current) use of anticoagulants; F17.210 Nicotine dependence, cigarettes, uncomplicated; E66.01 Morbid (severe) obesity due to excess calories; Z68.43 Body mass index [BMI] 50.0-59.9, adult; G47.33 Obstructive sleep apnea (adult) (pediatric); I50.30 Unspecified diastolic (congestive) heart failure; Z99.89 Dependence on other enabling machines and devices; R06.89 Other abnormalities of breathing
CPT/HCPCS: 36415; 85610; 99204

== ENCOUNTER → 2025-02-17 09:57 | Outpatient (BNVA) | payer MEDICARE, MEDICAID, SELFPAY | PROVIDERS: PCP Nurse Practitioner Family; Visit Provider Internal Medicine Cardiovascular Disease | DX: I11.0 Hypertensive heart disease with heart failure (principal); I50.32 Chronic diastolic (congestive) heart failure; Z86.711 Personal history of pulmonary embolism; Z86.718 Personal history of other venous thrombosis and embolism; Z79.01 Long term (current) use of anticoagulants; F17.210 Nicotine dependence, cigarettes, uncomplicated; R06.02 Shortness of breath | CPT/HCPCS: 36415; 83880; 99214 ==

== ENCOUNTER → 2025-04-15 09:35 | Outpatient (BNVA) | payer MEDICARE, MEDICAID, SELFPAY | PROVIDERS: PCP Nurse Practitioner Family; Visit Provider Nurse Practitioner Family | DX: R73.9 Hyperglycemia, unspecified (principal); Z79.01 Long term (current) use of anticoagulants; I82.441 Acute embolism and thrombosis of right tibial vein; I27.82 Chronic pulmonary embolism | CPT/HCPCS: 83036; 85610 ==